=== PATIENT | male | born 1950 | race Caucasian/White ===

== ENCOUNTER 2020-08-12 18:13 | Inpatient (IN) | payer MEDICARE, SELFPAY ==
[2020-08-12] VITALS (20 sets, daily range): BP systolic 156–192; BP diastolic 79–94; PULSE 87–106; RESP 18–29; TEMP 36.4; O2SAT 90–95
--- NOTE | ~2020-08-12 | XR_ITS ---
EXAMINATION: XR chest 1V portable INDICATION: Hypoxia TECHNIQUE: Portable AP chest at 0 to 16 hours COMPARISON: None available FINDINGS: A mild diffuse interstitial pattern is present. There is no pleural effusion or pneumothora x. The cardiomediastinal silhouette is normal. There is mild osteoarthritis of the shoulders. IMPRESSION: 1. Mild diffuse interstitial pattern which could reflect pulmonary edema. Reviewed, dictated and finalized at location A.
--- NOTE | ~2020-08-12 | XR_ITS ---
XR chest 1V portable 08/14/2020 08:38 Indication: Hypoxia. CHF. Procedure: AP portable chest Comparison: 08/13/2020 Findings: Heart size within normal limits. Mild diffuse bilateral interstitial infiltrates. No signif icant effusion or pneumothorax. No acute osseous abnormality. Impression: 1: Mild diffuse bilateral interstitial infiltrates which may represent interstitial edema or atypical pneumonia. Reviewed, dictated and finalized at location B. Impression: 1: Mild diffuse bilateral interstitial infiltrates which may represent intersti tial edema or atypical pneumonia.
--- NOTE | ~2020-08-12 | XR_ITS ---
EXAMINATION: XR abdomen/kub 1V INDICATION: Left ureteral stone TECHNIQUE: Supine views of the abdomen were obtained on 2 radiographs. COMPARISON: CT from yesterday FINDINGS: A left internal ureteral stent has been placed in expected position. Many of the previously described left proximal ureteral stones appear to have been displaced in a retrograde manner into th e left renal pelvis. There is a questionable stone adjacent to the distal aspect of the internal uret eral stent near the ureterovesicular junction. In addition, there are several left kidney stones arnaldo uring up to 2 cm. Small right-sided stone seen on the comparison CT are not definitely identified. Th e bowel gas pattern is normal. IMPRESSION: 1. Left internal ureteral stent placed in expected position with multiple stones in the left renal pe lvis and left kidney. Possible stone adjacent to the distal aspect of the stent near the ureterovesic ular junction. Reviewed, dictated and finalized at location A. IMPRESSION: 1. Left internal ureteral stent placed in expected position with multiple stone s in the left renal pelvis and left kidney. Possible stone adjacent to the dist al aspect of the stent near the ureterovesicular junction.
--- NOTE | ~2020-08-12 | XR_ITS ---
EXAMINATION: XR retrograde pyelo w/stent LT INDICATION: Left ureteral stone TECHNIQUE: 80 intraoperative fluoroscopic images are submitted for review. Total fluoroscopic time is 27.4 seconds. COMPARISON: CT from yesterday FINDINGS: Retrograde pyelogram demonstrates multiple stones in the proximal left ureter. Final images demonstrate a left internal ureteral stent in expected position. The bowel gas pattern is normal. Pl ease refer to procedure note for full details. IMPRESSION: 1. Left ureteral stones with left internal ureteral stent placed in expected position. Please refer t o procedure note for full details. Reviewed, dictated and finalized at location A. IMPRESSION: 1. Left ureteral stones with left internal ureteral stent placed in expected po sition. Please refer to procedure note for full details.
--- NOTE | ~2020-08-12 | CT_ITS ---
EXAMINATION: CT abdomen pelvis wo con EXAM DATE: 08/12/2020 19:48 INDICATION: Left flank pain. TECHNIQUE: Spiral CT of the abdomen and pelvis was performed without contrast. Axial, coronal and sag ittal images were reviewed. The dose-length product (DLP) for this examination was 202.67 mGy-cm. T he exposure was tailored according to patient size (auto mA exposure control), and iterative reconstr uction (ASIR) was used as additional dose reduction technique. Correlation is made to kidney ultrasou nd 06/14/2019. FINDINGS: There appeared to be 3 contiguous left proximal ureteral stones measuring up to about 8 mm in size. There is mild left-sided hydronephrosis and moderate perinephric fat stranding. Additionally , there is stone in the distal aspect of the left ureter measuring 7 mm,, and one in the mid ureter m easuring 5 mm. Additional nonobstructing left renal pelvic stones and bilateral calyceal stones. Ther e is a soft tissue density lesion at the superior pole of the right kidney measuring 4.3 cm, matches size of a cyst on ultrasound last year, probably a hemorrhagic cyst. Moderate prostatomegaly, prostate measuring 5.6 cm. Small left inguinal fat-containing hernia. The b ladder is unremarkable. The liver, spleen, adrenal glands and pancreas are unremarkable. Gallbladde r is unremarkable. No biliary obstruction. There is no retroperitoneal or pelvic lymphadenopathy. There is moderate scattered arteriosclerotic disease. The appendix is not positively visualized. There is no pericecal inflammatory change to suggest appe ndicitis. The stomach and small bowel are unremarkable. There is expected amount of colonic stool. No free intraperitoneal gas. The heart is normal in size. There are no pericardial or pleural e ffusions. Some dependent groundglass opacity and interlobular septal thickening, could be atelectasi s or mild pulmonary edema. There are no osteoblastic or osteolytic lesions identified. IMPRESSION: 1. Total of 5 left ureteral stones identified, proximal 3 obstructing, mid and distal ureteral stone s also identified. 2. Bilateral nephrolithiasis. 3. Moderate prostatomegaly. 4. Dependent groundglass opacity, interlobular septal thickening. Atelectasis or mild pulmonary derick a. Reviewed, dictated and finalized at location A. IMPRESSION: 1. Total of 5 left ureteral stones identified, proximal 3 obstructing, mid and distal ureteral stones also identified. 2. Bilateral nephrolithiasis. 3. Moderate prostatomegaly. 4. Dependent groundglass opacity, interlobular septal thickening. Atelectasis or mild pulmonary edema.
[2020-08-12 18:37] LABS: Basophils Percent Auto 0.3 % (0.2-1.2); Eosinophils Percent Auto 0.1 % (0-4.4); Hematocrit 55.4 % (42.0-52.0); Hemoglobin 17.7 g/dL (14.0-18.0); Immature Granulocyte Absolute 0.07 K/mm3 (0.00-0.031); Immature Granulocyte Percent A 0.5 % (0-0.5); Lymphocytes Absolute Auto 0.78 K/mm3 (0.9-3.2); Lymphocytes Percent Auto 5.6 % (18.3-44.2); Mean Corpuscular HGB Conc 31.9 g/dl (32-36); Mean Corpuscular Hemoglobin 31.2 pg (26-34); Mean Corpuscular Volume 97.7 fl (80-100); Monocytes Absolute Auto 0.6 K/mm3 (0.1-0.6); Monocytes Percent Auto 4.1 % (2.6-8.5); Neutrophils Absolute Auto 12.5 K/mm3 (1.3-6.7); Neutrophils Percent Auto 89.4 % (45.5-73.1); Platelet Count Result 230 k/mm3 (150-375); Red Blood Count 5.67 M/mm3 (4.6-6.20); Red Cell Distribution Width 13.8 % (11.5-14.5)
[2020-08-12 18:46] LABS: Add Urine Microscopic? YES; Appearance Urine Clear (Clear); Bilirubin Urine Negative (Negative); Blood Urine 2+ (Negative); Color Urine Yellow (Yellow); Glucose Urine UA 2+ mg/dL (Negative); Ketones Urine Trace mg/dL (Negative); Leukocyte Esterase Ur Negative LEU/UL (Negative); Nitrate Urine Negative (Negative); Protein Urine 2+ mg/dL (Negative); RBC Urine 21-50 /hpf (0-2); Specific Grav Ur 1.017 (1.001-1.035); Urobilinogen Urine Negative mg/dL (<2.0); WBC Urine 0-3 /hpf
[2020-08-12 18:49] LABS: Alanine Aminotransferase 10 U/L (4-50); Albumin Level 4.2 g/dL (3.5-5.1); Alkaline Phosphatase 137 U/L (38-126); Anion Gap 11 mmol/L (8-16); Aspartate Amino Transferase 22 U/L (17-59); Bilirubin,Total 1.1 mg/dL (0.2-1.3); Blood Urea Nitrogen 18 mg/dL (9-20); Calcium 8.8 mg/dL (8.4-10.2); Carbon Dioxide 28 mmol/L (22-30); Chloride 100 mmol/L (98-107); Estimated CRCL calculation 25 ml/min; Estimated Glomerular Filt Rate 23; Glucose 168 mg/dL (75-110); Lipase 61 U/L (23-300); Potassium 4.7 mmol/L (3.4-5.0); Sodium 139 mmol/L (137-145)
[2020-08-12] MEDS: ONDANSETRON INJ 4 MG/2 ML VIAL IV PUSH (20:10)
[2020-08-12] MEDS: SODIUM CHLORIDE 0.9% IV 1,000 ML 999 ML IV CONT (20:10)
--- NOTE | 2020-08-12 20:38 | ED.GENADULT ---
HPI - General Adult General Chief complaint: Nausea/Vomiting/Diarrhea Stated complaint: n/v Time Seen by Provider: 08/12/20 19:17 History of Present Illness HPI narrative: Patient is a 70-year-old gentleman who presents to emergency department with chief complaint of nausea and vomiting generalized weakness and flank pain. The patient reports he has prior history of kidney stones has had an uncomfortable feeling throughout his abdomen patient reports he had multiple bouts of nausea and vomiting at home and has been able to keep fluids down. Patient states he feels as though he is dehydrated the patient reports in the past he had to have stents but does not currently have a urologist that he is seeing. Patient reports he has been specifically noncompliant with his medications particularly for diabetes and hypertension Related Data Home Medications Medication Instructions Recorded Confirmed No Home Medications 08/12/20 08/12/20 Allergies Allergy/AdvReac Type Severity Reaction Status Date / Time Penicillins Allergy Rash Verified 08/12/20 18:20 Review of Systems Review of Systems: Narrative: A 10 system review of systems was completed on the patient and is negative except for what is stated in the HPI. Nursing and ancillary documentation was reviewed. [facility] Social History Social History Gender identity (if verbalized by the patient): Male Sexual Orientation (if Verbalized by the Patient): Straight or Heterosexual Comments Past medical history significant for diabetes hypertension and kidney stones Social history the patient smokes cigarettes Exam Narrative: Exam Narrative: GENERAL: Well-appearing, well-nourished, and in no acute distress. HEAD: Normocephalic, atraumatic. EYES: PERRLA and EOMI. ENT: Nares clear, no rhinorrhea or epistaxis. Mucous membranes moist. NECK: Supple. CHEST: Clear to auscultation. No respiratory distress. HEART: Regular rate and rhythm. No murmur heard. Normal peripheral pulses. ABDOMEN: Soft, nontender, nondistended, normal active bowel sounds. EXTREMITIES: Normal range of motion. No edema. SKIN: Warm, dry, no rash. NEURO: No focal deficits. Alert and oriented x3. PSYCH: Normal mood and affect. Course Vital Signs Vital signs: Vital Signs Temperature 36.4 C L 08/12/20 18:15 Pulse Rate 89 08/12/20 18:15 Respiratory Rate 18 08/12/20 18:15 Blood Pressure 180/80 H 08/12/20 18:15 Pulse Oximetry 95 08/12/20 18:15 Temperature 36.4 C L 08/12/20 18:15 Pulse Rate 103 H 08/12/20 21:15 Respiratory Rate 24 H 08/12/20 21:15 Blood Pressure 156/83 H 08/12/20 21:01 Pulse Oximetry 93 08/12/20 21:02 Medical Decision Making Vital Signs Vital Signs: Vital Signs Temperature 36.4 C L 08/12/20 18:15 Pulse Rate 89 08/12/20 18:15 Respiratory Rate 18 08/12/20 18:15 Blood Pressure 180/80 H 08/12/20 18:15 Pulse Oximetry 95 08/12/20 18:15 Temperature 36.4 C L 08/12/20 18:15 Pulse Rate 103 H 08/12/20 21:15 Respiratory Rate 24 H 08/12/20 21:15 Blood Pressure 156/83 H 08/12/20 21:01 Pulse Oximetry 93 08/12/20 21:02 Lab Data Result diagrams: 08/12/20 18:30 08/12/20 18:30 Labs: Lab Results 08/12/20 08/12/20 08/12/20 Range/Units 18:30 18:30 18:37 WBC 14.0 H (4.5-10.0) K/mm3 RBC 5.67 (4.6-6.20) M/mm3 Hgb 17.7 (14.0-18.0) g/dL Hct 55.4 H (42.0-52.0) % MCV 97.7 (80-100) fl MCH 31.2 (26-34) pg MCHC 31.9 L (32-36) g/dl RDW 13.8 (11.5-14.5) % Plt Count 230 (150-375) k/mm3 MPV 10.0 (7.4-10.4) fl Immature Gran % (Auto) 0.5 (0-0.5) % Neut % (Auto) 89.4 H (45.5-73.1) % Lymph % (Auto) 5.6 L (18.3-44.2) % [place] % (Auto) 4.1 (2.6-8.5) % Eos % (Auto) 0.1 (0-4.4) % Baso % (Auto) 0.3 (0.2-1.2) % Lymph # (Auto) 0.78 L (0.9-3.2) K/mm3 [place] # (Auto) 0.6 (0.1-0.6) K/mm3 Eos # (Auto) 0.0 (0-0.3) K/mm3 Baso # (Auto
--- NOTE | 2020-08-12 22:56 | PM.IMHP ---
H&P: HPI History of Present Illness Date/Time: 08/12/20 22:56 this is a 70-year-old male patient who has had a past medical history of having kidney stones. The patient has also had a history of atrial fibrillation but no longer takes his rate controlling medications or anticoagulation. According to the the patient does not take any of his medications that he is supposed to. He is also diabetic and does not take any his medications. Complaints of nausea vomiting with some generalized weakness. He complained of flank pain as well. The patient was not able to keep any fluids down. He is not currently seeing a urologist. The patient felt like he was dehydrated wanted something to drink. I gave him ice chips in the emergency room however that made him nauseated. The patient was given Zofran and IV fluids. He is also started on ceftriaxone. His white count is 14.0. Neutrophil percentage 89.4. Patient's creatinine is 2.7. Glucose is 168. Patient has 2+ glucose, protein, and blood in his urine. CT of the abdomen was read by radiology 1. Total of 5 left ureteral stones identified, proximal 3 obstructing, mid and distal ureteral stones also identified. 2. Bilateral nephrolithiasis. 3. Moderate prostatomegaly. 4. Dependent groundglass opacity, interlobular septal thickening. Atelectasis or mild pulmonary edema. The patient is being admitted to observation on the date of service of 08/12/2020. Chief Complaint: Nausea vomiting Review of Systems Review of Systems: Narrative: see hpi.... All systems reviewed & are unremarkable except as noted in HPI and below Constitutional: Constitutional: Reports as per HPI and Reports no additional constitutional complaints Eyes: Eyes: Reports as per HPI and Reports no additional eye complaints ENT: Reports system reviewed and no additional complaints, except as documented and Reports Normal hearing present Cardiovascular: Cardiovascular: Reports no additional cardiovascular complaints Respiratory: Respiratory: Reports no additional respiratory complaints and Reports no additional respiratory complaints Gastrointestinal: Gastrointestinal: Reports as per HPI and Reports no additional gastrointestinal complaints Musculoskeletal: Musculoskeletal: Reports no additional musculoskeletal complaints Integumentary/Breasts: Skin/Breast: Reports system reviewed and no additional complaints, except as docu and Reports as per HPI Neurologic: Reports system reviewed and no additional complaints, except as documented, Reports as per HPI and Reports Normal hearing present Psychiatric: Psychiatric: Reports no additional psychiatric complaints and Reports as per HPI Endocrine: Endocrine: Reports no additional endocrine complaints Hematologic/Lymphatic: Hematologic/Lymphatic: Reports no additional hematologic/lymphatic complaints Allergic/Immunologic: Allergic/Immunologic: Reports no additional allergic/immunologic complaints [facility] Past Medical History Medical History (Updated 08/12/20 @ 23:10 by Carie Galvez NP) Chronic renal failure, stage 3 (moderate) DM2 (diabetes mellitus, type 2) DVT (deep venous thrombosis) Paroxysmal A-fib Psoriasis Tobacco abuse Surgical History Surgical History (Updated 08/12/20 @ 23:10 by Carie Galvez NP) H/O craniotomy Subdural hematoma S/P arthroscopic surgery of right knee Family History Family History (Updated 08/12/20 @ 23:11 by Carie Galvez NP) Mother Cerebrovascular accident Diabetes mellitus Father Natural with proved cause Social History Social History (Updated 08/12/20 @ 23:13 by Carie Galvez NP) Social History: The patient is and has 4 biological children. The patient is a full code. His is the durable power commercial real estate attorney for healthcare. 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 Patient smokes 1 and half packs of cigarettes a day. He denies any alcohol or illicit drugs. Gender identity (if verbalize
[2020-08-13] VITALS (24 sets, daily range): BP systolic 120–165; BP diastolic 66–94; PULSE 75–122; RESP 16–22; TEMP 36.4–37.3; O2SAT 90–100; BMI 23.7
--- NOTE | 2020-08-13 00:01 | ADMGEN ---
This patient, Giovanni Drew, was admitted to 2 Medical Room 248-. Patient/family oriented to hospital policies and general routines including ID bracelet, bed and alarms, visiting hours, pain management, procedures, bathroom and other care routines, personal items, smoking policy, room service/diet, and visiting hours. Information on how to activate the Rapid Response Team has been discussed. Patient/Family are encouraged to report perceived risks to care and to ask questions if they do not understand what they are told or what they should do.
[2020-08-13] MEDS: SODIUM CHLORIDE 0.9% IV 1,000 ML 125 ML IV CONT (00:28)
[2020-08-13] MEDS: NICOTINE (*PBKC) 21 MG PATCH 1 PATCH TRANSDERM ×2 (00:28→08:36)
[2020-08-13 00:39] LABS: Glucose Point of Care 161 (65-105)
--- NOTE | 2020-08-13 01:23 | PC.NURSE ---
pt complaining he is short of breath and hard to breath. O2 stat was obtained and he is at 90% on room air. Respiratory was notified and called to the floor. Pt has PRN inhaler available.
[2020-08-13 01:31] LABS: Hemoglobin A1C 7.6 % (<5.7)
--- NOTE | 2020-08-13 02:16 | PC.NURSE ---
pt stated he has had 1 dose of the covid vaccine
[2020-08-13] MEDS: IPRATROPIUM BR 0.02% INH SOLN 0.5 MG/2.5 ML VIAL INHALATION (02:17)
[2020-08-13] MEDS: ALBUTEROL SULFATE NEB 2.5 MG/0.5 ML INH 5 MG INHALATION (02:17)
--- NOTE | 2020-08-13 03:59 | ECG_ITS ---
Measurements Intervals [place] Rate: 109 P: 46 [place]: 128 QRS: 118 QRSD: 158 T: -58 QT: 368 QTc: 496 Interpretive Statements SINUS TACHYCARDIA POSSIBLE LEFT ATRIAL ENLARGEMENT RSR' IN V1 OR V2, CONSIDER RIGHT VENTRICULAR HYPERTROPHY OR RIGHT VCD CONSIDER ANTEROLATERAL INFARCT, AGE INDETERMINATE HIGH LATERAL INFARCT, AGE INDETERMINATE ST-T WAVE ABNORMALITY IN INFERIOR LEADS- CONSIDER ISCHEMIA PEAKED T WAVES- CONSIDER HYPERKALEMIA OR ISCHEMIA ABNORMAL ECG Electronically Signed On 08-13-2020 7:35:02 CDT by Calixto Santa D.O.
[2020-08-13] MEDS: FUROSEMIDE INJ 40 MG/4 ML VIAL IV PUSH ×2 (04:24→14:10)
[2020-08-13 05:38] LABS: Basophils Percent Auto 0.2 % (0.2-1.2); Hematocrit 52.1 % (42.0-52.0); Hemoglobin 16.3 g/dL (14.0-18.0); Immature Granulocyte Absolute 0.09 K/mm3 (0.00-0.031); Immature Granulocyte Percent A 0.6 % (0-0.5); Lymphocytes Absolute Auto 0.89 K/mm3 (0.9-3.2); Lymphocytes Percent Auto 6.1 % (18.3-44.2); Mean Corpuscular HGB Conc 31.3 g/dl (32-36); Mean Corpuscular Hemoglobin 30.2 pg (26-34); Mean Corpuscular Volume 96.5 fl (80-100); Mean Platelet Volume 10.2 fl (7.4-10.4); Monocytes Percent Auto 6.9 % (2.6-8.5); Neutrophils Absolute Auto 12.6 K/mm3 (1.3-6.7); Neutrophils Percent Auto 86.2 % (45.5-73.1); Platelet Count Result 229 k/mm3 (150-375); Red Cell Distribution Width 13.8 % (11.5-14.5); White Blood Count 14.6 K/mm3 (4.5-10.0)
[2020-08-13 05:49] LABS: Anion Gap 10 mmol/L (8-16); Blood Urea Nitrogen 22 mg/dL (9-20); Calcium 7.9 mg/dL (8.4-10.2); Carbon Dioxide 26 mmol/L (22-30); Chloride 101 mmol/L (98-107); Estimated CRCL calculation 19 ml/min; Estimated Glomerular Filt Rate 16; Glucose 190 mg/dL (75-110); Magnesium 1.8 mg/dL (1.6-2.3); Potassium 5.1 mmol/L (3.4-5.0); Sodium 137 mmol/L (137-145)
[2020-08-13] MEDS: INSULIN ASPART (*BKC) 100 UNITS/ML SUB-Q ×2 (06:26→17:42)
[2020-08-13 06:27] LABS: Glucose Point of Care 215 (65-105)
--- NOTE | 2020-08-13 08:47 | P.PNIM_ITS ---
Progress Note: A&P Assessment and Plan (1) Acute respiratory failure with hypoxia: Code(s): J96.01 - Acute respiratory failure with hypoxia Status: Acute Assessment and Plan: * Although chest x-ray has the appearance of pulmonary edema, this pattern was present on admission prior to the administration of IV fluids. Patient was not short of breath prior to admission. Hypoxia and shortness of breath began during a vomiting and choking episode. Patient had been vomiting for 4 days prior to admission. * He may have underlying congestive heart failure, have a ever his acute episode 08/13 seems to be due to aspiration of vomitus. * 08/13 early a.m. received 1 dose of furosemide 40 mg IV push * Will hold IV fluids at present * Given combination of GI and respiratory symptoms with abnormal chest x-ray on presentation, will obtain COVID-19 swab * Echocardiogram * TSH * CRP, Procalcitonin * TnI trend (will likely be elevated due to renal failure), but does have ABNL EKG and is at risk for atypical cardiac presentation due to his diabetes * F/u CXR (note that x-ray from 08/13 has no effusions, increased interstitial markings, some cephalization) * Continue ceftriaxone * Titrate oxygen to maintain sats mid-90s * Monitor blood pressure, heart rate, intake and output (2) Left ureteral calculus: Code(s): N20.1 - Calculus of ureter Status: Acute Assessment and Plan: * Scheduled for stent placement and stone extraction today * May require lithotripsy later * Continue ceftriaxone (3) BETH (acute kidney injury): Code(s): N17.9 - Acute kidney failure, unspecified Status: Acute Assessment and Plan: * Baseline creatinine level unknown * Request records from [facility] where he was last treated for kidney stones (4) Chronic renal failure, stage 3 (moderate): Qualifiers: Chronic kidney disease stage 3 subtype: unspecified whether 3a or 3b Qualified Code(s): N18.30 - Chronic kidney disease, stage 3 unspecified Code(s): N18.30 - Chronic kidney disease, stage 3 unspecified Status: Chronic Assessment and Plan: * Baseline creatinine level unknown (5) Paroxysmal A-fib: Code(s): I48.0 - Paroxysmal atrial fibrillation Status: Chronic Assessment and Plan: * Currently sinus tachycardia * Add low-dose beta-faviola when able to resume p.o. intake (6) DM2 (diabetes mellitus, type 2): Qualifiers: Diabetes mellitus skilled nursing insulin use: without skilled nursing use Diabetes mellitus complication status: with hyperglycemia Qualified Code(s): E11.65 - Type 2 diabetes mellitus with hyperglycemia Code(s): E11.9 - Type 2 diabetes mellitus without complications Status: Chronic Assessment and Plan: * Basal Lantus 12 units and sliding scale while NPO (7) BPH loc w urin obs/LUTS: Code(s): N40.1 - Benign prostatic hyperplasia with lower urinary tract symptoms Status: Acute Assessment and Plan: * Obstructive uropathy seems to be due to stones and not to prostate at this point (8) Tobacco abuse: Code(s): Z72.0 - Tobacco use Status: Chronic Assessment and Plan: * 08/12 3 minutes spent counseling patient on need for smoking cessation Subjective Date/time seen: 08/13/20 08:47 Interval history: 70-year-old cigarette smoker with history of type 2 diabetes and atrial fibrillation and kidney stones was admitted during the evening of 08/12 with left flank pain and found to have obstructed left ureter and multiple kidney s
--- NOTE | 2020-08-13 08:47 | PM.IMPN ---
Progress Note: A&P Assessment and Plan (1) Acute respiratory failure with hypoxia: Code(s): J96.01 - Acute respiratory failure with hypoxia Status: Acute Assessment and Plan: Although chest x-ray has the appearance of pulmonary edema, this pattern was present on admission prior to the administration of IV fluids. Patient was not short of breath prior to admission. Hypoxia and shortness of breath began during a vomiting and choking episode. Patient had been vomiting for 4 days prior to admission. He may have underlying congestive heart failure, have a ever his acute episode 08/13 seems to be due to aspiration of vomitus. 08/13 early a.m. received 1 dose of furosemide 40 mg IV push Will hold IV fluids at present Given combination of GI and respiratory symptoms with abnormal chest x-ray on presentation, will obtain COVID-19 swab Echocardiogram TSH CRP, Procalcitonin TnI trend (will likely be elevated due to renal failure), but does have ABNL EKG and is at risk for atypical cardiac presentation due to his diabetes F/u CXR (note that x-ray from 08/13 has no effusions, increased interstitial markings, some cephalization) Continue ceftriaxone Titrate oxygen to maintain sats mid-90s Monitor blood pressure, heart rate, intake and output (2) Left ureteral calculus: Code(s): N20.1 - Calculus of ureter Status: Acute Assessment and Plan: Scheduled for stent placement and stone extraction today May require lithotripsy later Continue ceftriaxone (3) BETH (acute kidney injury): Code(s): N17.9 - Acute kidney failure, unspecified Status: Acute Assessment and Plan: Baseline creatinine level unknown Request records from [facility] where he was last treated for kidney stones (4) Chronic renal failure, stage 3 (moderate): Qualifiers: Chronic kidney disease stage 3 subtype: unspecified whether 3a or 3b Qualified Code(s): N18.30 - Chronic kidney disease, stage 3 unspecified Code(s): N18.30 - Chronic kidney disease, stage 3 unspecified Status: Chronic Assessment and Plan: Baseline creatinine level unknown (5) Paroxysmal A-fib: Code(s): I48.0 - Paroxysmal atrial fibrillation Status: Chronic Assessment and Plan: Currently sinus tachycardia Add low-dose beta-faviola when able to resume p.o. intake (6) DM2 (diabetes mellitus, type 2): Qualifiers: Diabetes mellitus custodial insulin use: without long term care social worker use Diabetes mellitus complication status: with hyperglycemia Qualified Code(s): E11.65 - Type 2 diabetes mellitus with hyperglycemia Code(s): E11.9 - Type 2 diabetes mellitus without complications Status: Chronic Assessment and Plan: Basal Lantus 12 units and sliding scale while NPO (7) BPH loc w urin obs/LUTS: Code(s): N40.1 - Benign prostatic hyperplasia with lower urinary tract symptoms Status: Acute Assessment and Plan: Obstructive uropathy seems to be due to stones and not to prostate at this point (8) Tobacco abuse: Code(s): Z72.0 - Tobacco use Status: Chronic Assessment and Plan: 08/12 3 minutes spent counseling patient on need for smoking cessation Subjective Date/time seen: 08/13/20 08:47 Interval history: 70-year-old cigarette smoker with history of type 2 diabetes and atrial fibrillation and kidney stones was admitted during the evening of 08/12 with left flank pain and found to have obstructed left ureter and multiple kidney stones. He admits to not taking his prescribed medications for about 1 year. He checks his blood sugars infrequently and when he does they are in the 300s. 08/13. manager office services hours episodes of nausea vomiting followed by shortness of breath and hypoxia. Patient stated he had episodes of choking after the vomiting. Vomiting began about 4 days prior to admission. Denied chest pain palpitations or edema.
--- NOTE | 2020-08-13 09:00 | WPDURCON ---
Assessment and Plan Assessment and plan (1) BPH loc w urin obs/LUTS: Code(s): N40.1 - Benign prostatic hyperplasia with lower urinary tract symptoms Status: Acute (2) Bladder stones: Code(s): N21.0 - Calculus in bladder Status: Acute (3) Left renal stone: Code(s): N20.0 - Calculus of kidney Status: Acute (4) Left ureteral calculus: Code(s): N20.1 - Calculus of ureter Status: Acute Assessment and Plan: Cystoscopy with left stent placement today. Left ESWL after tretment of UTI and medical stabilization. Finasteride for BPH. Urology Consult Note HPI Date Seen: 08/13/20 Requesting Physician: Sandy Mckeon DO Primary Care Provider: INSEAM LEVELER PHYSICIAN Consult Narrative Narrative: Giovanni Drew is a 70 year old male reports a long history of urolithiasis that of being cared for [facility]. He has never been seen in our practice. He has a history of diabetes and atrial fibrillation but is not compliant with medications. Additionally, he has been noncompliant with urological follow-up with his prior urologist. Presents to the ER at [facility] with a several day history of left flank pain, nausea and generalized weakness. He denies fevers chills or gross hematuria. CT scan of the abdomen pelvis with without contrast shows large stones in his left renal pelvis with some smaller ones in his left ureter. Additionally, CT scan shows moderate prostate enlargement and possible bladder calculi. Review of Systems Cardiovascular: Cardiovascular: Denies chest pain, Denies lightheadedness, Denies palpitations and Denies dyspnea Respiratory: Respiratory: Denies dyspnea Gastrointestinal: Gastrointestinal: Reports abdominal pain, Denies diarrhea, Denies nausea and Denies vomiting Genitourinary: Genitourinary: Denies hematuria and Denies dysuria Endocrine: Endocrine: Denies palpitations [facility] Past Medical History Medical History (Updated 08/13/20 @ 09:04 by Taye Brannon MD) Chronic renal failure, stage 3 (moderate) DM2 (diabetes mellitus, type 2) DVT (deep venous thrombosis) Paroxysmal A-fib Psoriasis Tobacco abuse Surgical History Surgical History (Updated 08/12/20 @ 23:10 by Carie Galvez NP) H/O craniotomy Subdural hematoma S/P arthroscopic surgery of right knee Family History Family History Mother Cerebrovascular accident Diabetes mellitus Father Natural with proved cause Social History Social History (Updated 08/12/20 @ 23:13 by Carie Galvez NP) Social History: The patient is and has 4 biological children. The patient is a full code. His is the durable power staff attorney for healthcare. 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 Patient smokes 1 and half packs of cigarettes a day. He denies any alcohol or illicit drugs. Smoking packs per day: 1.5 Smoking cigarettes per day: 30.0 Smoking status: Current every day smoker Tobacco type: cigarettes Second hand tobacco smoke exposure: Yes Alcohol intake: current Drinks per week: 0 Substance use: never Gender identity (if verbalized by the patient): Male Sexual Orientation (if Verbalized by the Patient): Straight or Heterosexual Spiritual care concerns: No Meds Home Medications and Allergies Home Medications Medication Instructions Recorded Confirmed Type No Home Medications 08/12/20 08/12/20 History Allergies Allergy/AdvReac Type Severity Reaction Status Date / Time Penicillins Allergy Rash Verified 08/13/20 00:02 Vital Signs Vital Signs - 24 hr 08/12/20 18:15 08/12/20 18:28 08/12/20 19:13 Temperature 97.5 F L Pulse Rate 89 97 Respiratory Rate 18 19 Blood Pressure 180/80 H 174/79 H Pulse Oximetry 95 08/12/20 19:15 08/12/20 19:30 08/12/20 19:51 Temperature Pulse Rate 87 90 Respiratory Rate 27 H 24 H 20 B
--- NOTE | 2020-08-13 09:07 | WPDHPUPDATE1 ---
History and Physical Update Update Date/Time: 08/13/20 09:07 History and Physical has been reviewed, including an updated exam of the patient. There are NO changes in the patient's condition. Risks, benefits, and alternatives have been discussed and questions answered. Patient agrees to proceed with procedure.
--- NOTE | 2020-08-13 09:30 | PC.NURSE ---
Patient to OR per bed.
--- NOTE | 2020-08-13 09:55 | PC.NURSE ---
Patient taken to OR per bed. After returning back to floor, Dr. Pisano had placed orders to swab patient for COVID. Notified charge hand, powerhouse laborer, OR staff (Radha RN and anesthesia), and Dr. Brannon of patient PUI.
--- NOTE | 2020-08-13 10:03 | WPDANESEPPF ---
Anes - Initial Pre Proc Eval Procedure: Operation Date: 08/13/20 09:00 Proposed Procedures p Cysto, RPG, Stone Ext, Stent Placement(Left) - Taye Brannon MD Date/Time: 08/13/20 10:03 Surgeon: Sandy Mckeon DO Pre Op Diagnosis: BETH, Ureterolethiasis Patient Data Age: 70 Gender: M Height: 1.83 m Weight: 79.4 kg Last Vital Signs Temp 36.8 C 08/13/20 05:03 Pulse 108 H 08/13/20 08:27 Resp 20 08/13/20 08:27 BP 151/77 H 08/13/20 05:03 Pulse Ox 91 08/13/20 08:27 Allergies Allergy/AdvReac Type Severity Reaction Status Date / Time Penicillins Allergy Rash Verified 08/13/20 00:02 Home Medications Medication Instructions Recorded Confirmed Type No Home Medications 08/12/20 08/12/20 History Laboratory Tests 08/12/20 08/12/20 08/12/20 18:29 18:30 18:30 WBC 14.0 K/mm3 H K/mm3 (4.5-10.0) RBC 5.67 M/mm3 M/mm3 (4.6-6.20) Hgb 17.7 g/dL g/dL (14.0-18.0) Hct 55.4 % H % (42.0-52.0) MCV 97.7 fl fl (80-100) MCH 31.2 pg pg (26-34) MCHC 31.9 g/dl L g/dl (32-36) RDW 13.8 % % (11.5-14.5) Plt Count 230 k/mm3 k/mm3 (150-375) MPV 10.0 fl fl (7.4-10.4) Immature Gran % (Auto) 0.5 % % (0-0.5) Neut % (Auto) 89.4 % H % (45.5-73.1) Lymph % (Auto) 5.6 % L % (18.3-44.2) [place] % (Auto) 4.1 % % (2.6-8.5) Eos % (Auto) 0.1 % % (0-4.4) Baso % (Auto) 0.3 % % (0.2-1.2) Lymph # (Auto) 0.78 K/mm3 L K/mm3 (0.9-3.2) [place] # (Auto) 0.6 K/mm3 K/mm3 (0.1-0.6) Eos # (Auto) 0.0 K/mm3 K/mm3 (0-0.3) Baso # (Auto) 0.0 K/mm3 K/mm3 (0.0-0.1) Abs Immat Gran (auto) 0.07 K/mm3 H K/mm3 (0.00-0.031) Absolute Neuts (auto) 12.5 K/mm3 H K/mm3 (1.3-6.7) Absolute Nucleated RBC 0.0 K/mm3 K/mm3 (0.0-0.012) Nucleated RBC % 0.0 % % (0.0-0.2) Sodium 139 mmol/L mmol/L (137-145) Potassium 4.7 mmol/L mmol/L (3.4-5.0) Chloride 100 mmol/L mmol/L (98-107) Carbon Dioxide 28 mmol/L mmol/L (22-30) Anion Gap 11 mmol/L mmol/L (8-16) BUN 18 mg/dL mg/dL (9-20) Creatinine 2.70 mg/dL H mg/dL (0.7-1.3) Estim Creat Clear Calc 25 ml/min ml/min Estimated GFR 23 L (59 - ) Glucose 168 mg/dL H mg/dL (75-110) POC Capillary Glucose Hemoglobin A1c 7.6 % H % (<5.7) Calcium 8.8 mg/dL mg/dL (8.4-10.2) Magnesium Total Bilirubin 1.1 mg/dL mg/dL (0.2-1.3) AST 22 U/L U/L (17-59) ALT 10 U/L U/L (4-50) Alkaline Phosphatase 137 U/L H U/L (38-126) Total Protein 8.0 g/dL g/dL (6.3-8.2) Albumin 4.2 g/dL g/dL (3.5-5.1) Lipase 61 U/L U/L (23-300) Urine Color Urine Appearance Urine pH Ur Specific [place] Urine Protein Urine Glucose (UA) Urine Ketones Ur Blood (Man) Urine Nitrate Urine Bilirubin Urine Urobilinogen Leukocyte Esterase Rfl Urine RBC Urine WBC 08/12/20 08/13/20 08/13/20 18:37 00:33 05:10 WBC 14.6 K/mm3 H K/mm3 (4.5-10.0) RBC 5.40 M/mm3 M/mm3 (4.6-6.20) Hgb 16.3 g/dL g/dL (14.0-18.0) Hct 52.1 % H % (42.0-52.0) MCV 96.5 fl fl (80-100) MCH 30.2 pg pg (26-34) MCHC 31.3 g/dl L g/dl (32-36) RDW 13.8 % % (11.5-14.5) Plt Count 229 k/mm3 k/mm3 (150-375) MPV 10.2 fl fl (7.4-10.4) Immature Gran % (Auto) 0.6 % H % (0-0.5) Neut % (Auto) 86.2 % H % (45.5-73.1) Lymph % (Auto) 6.1 % L % (18.3-44.2) [place] % (Auto) 6.9 % %
[2020-08-13] MEDS: LACTATED RINGERS 1,000 ML 30 ML IV CONT (10:23)
--- NOTE | 2020-08-13 10:29 | PC.NURSE ---
Report given to FRANK Felix-nurse to resume care after procedure.
--- NOTE | 2020-08-13 11:00 | PC.NURSE ---
Updated patients on patients condition, transfer.
[2020-08-13] MEDS: LIDOCAINE HCL 2% GEL UROJET 10 ML PKG MUCOUS MEM (11:15)
--- NOTE | 2020-08-13 11:15 | PM.PROC ---
Procedure Note - Detailed Date of procedure: 08/13/20 Pre-op diagnosis: BETH, Ureterolethiasis Post-op diagnosis: other (BETH, left ureteral, left renal and bladder stones) Procedure performed: Cystoscopy, bladder stone extraction, left retrograde pyelogram and left ureteral stent placement Description of procedure: patient brought to the operative suite where he has prepped draped in routine sterile fashion while in a dorsal lithotomy position. 2% xylocaine jelly was introduced intraurethrally. General LMA anesthetic was administered per the anesthesia department. Cystoscopy is undertaken with a 21 F rigid cystoscope. He has a 2.5 cm estimated prostatic urethral length with a high median bar. Bladder was trabeculated without mucosal hyperemia. There are several 0.5-1 cm bladder stones which were extracted with a grasping forceps. 8F bulb tip catheter was used to obtain ridge left retrograde pyelogram. identifiable filling defects in the left proximal ureter consistent with his known stones. 4.8F ureteral stent is positioned in the left ureter with proximal coil in the renal pelvis and distal coil in the bladder. Scopes and wires removed. Patient tolerated the procedure well. Anesthesia: GLMA Surgeon: Taye Brannon MD Drains: Yes Packing: No Pathology: yes Complications: No immediate complications Condition: stable Disposition: PACU
--- NOTE | 2020-08-13 11:44 | PC.NURSE ---
This patient, Giovanni Drew, was transferred to 312 on 08/13/20. Patient to be transferred to room 312 following OR procedure. Personal belongings sent with patient. Report given to FRANK Felix. Appropriate documentation sent with patient.
[2020-08-13 12:44] LABS: Glucose Point of Care 194 (65-105)
[2020-08-13 12:47] LABS: Basophils Percent Auto 0.2 % (0.2-1.2); Hematocrit 54.5 % (42.0-52.0); Hemoglobin 17.6 g/dL (14.0-18.0); Immature Granulocyte Absolute 0.07 K/mm3 (0.00-0.031); Immature Granulocyte Percent A 0.5 % (0-0.5); Mean Corpuscular HGB Conc 32.3 g/dl (32-36); Mean Corpuscular Hemoglobin 31.6 pg (26-34); Mean Corpuscular Volume 97.8 fl (80-100); Mean Platelet Volume 10.1 fl (7.4-10.4); Monocytes Absolute Auto 0.6 K/mm3 (0.1-0.6); Monocytes Percent Auto 3.9 % (2.6-8.5); Neutrophils Absolute Auto 13.5 K/mm3 (1.3-6.7); Neutrophils Percent Auto 91.4 % (45.5-73.1); Platelet Count Result 232 k/mm3 (150-375); Red Blood Count 5.57 M/mm3 (4.6-6.20); Red Cell Distribution Width 14.2 % (11.5-14.5); White Blood Count 14.8 K/mm3 (4.5-10.0)
[2020-08-13 12:56] LABS: Hemoglobin A1C 7.6 % (<5.7)
[2020-08-13 12:59] LABS: Anion Gap 9 mmol/L (8-16); Blood Urea Nitrogen 27 mg/dL (9-20); Calcium 8.3 mg/dL (8.4-10.2); Carbon Dioxide 27 mmol/L (22-30); Chloride 100 mmol/L (98-107); Estimated CRCL calculation 16 ml/min; Estimated Glomerular Filt Rate 14; Glucose 214 mg/dL (75-110); Potassium 5.8 mmol/L (3.4-5.0); Sodium 136 mmol/L (137-145)
[2020-08-13 13:02] LABS: CRP 6.9 mg/dL (<1.0)
--- NOTE | 2020-08-13 13:55 | ECG_ITS ---
Measurements Intervals [place] Rate: 95 P: 18 CT: 152 QRS: 119 QRSD: 143 T: -59 QT: 382 QTc: 481 Interpretive Statements SINUS RHYTHM POSSIBLE LEFT ATRIAL ENLARGEMENT RIGHT BUNDLE BRANCH BLOCK LEFT POSTERIOR FASCICULAR BLOCK CONSIDER ANTEROLATERAL INFARCT, AGE INDETERMINATE HIGH LATERAL INFARCT, AGE INDETERMINATE ST-T WAVE ABNORMALITY IN INFERIOR LEADS- CONSIDER ISCHEMIA BASELINE ARTIFACT- I, II, AVR, V1 ABNORMAL ECG Electronically Signed On 08-13-2020 16:31:01 CDT by Calixto Santa D.O.
[2020-08-13] MEDS: SODIUM POLYSTYRENE SULFONONATE 15 GM/60 ML BTL PO (14:10)
[2020-08-13] MEDS: SODIUM CHLORIDE 0.9% IV 250 ML 100 ML IV CONT (14:11)
[2020-08-13 15:41] LABS: Anion Gap 10 mmol/L (8-16); Blood Urea Nitrogen 29 mg/dL (9-20); Calcium 8.5 mg/dL (8.4-10.2); Carbon Dioxide 26 mmol/L (22-30); Chloride 100 mmol/L (98-107); Estimated CRCL calculation 18 ml/min; Estimated Glomerular Filt Rate 15; Glucose 255 mg/dL (75-110); Phosphorus 4.6 mg/dL (2.5-4.5); Potassium 5.8 mmol/L (3.4-5.0); Sodium 136 mmol/L (137-145)
[2020-08-13] MEDS: FINASTERIDE 5 MG TABLET PO (17:44)
[2020-08-13 17:53] LABS: Glucose Point of Care 265 (65-105)
[2020-08-13 20:24] LABS: Basophils Percent Auto 0.1 % (0.2-1.2); Hematocrit 50.1 % (42.0-52.0); Hemoglobin 16.2 g/dL (14.0-18.0); Immature Granulocyte Absolute 0.05 K/mm3 (0.00-0.031); Immature Granulocyte Percent A 0.6 % (0-0.5); Lymphocytes Absolute Auto 0.38 K/mm3 (0.9-3.2); Lymphocytes Percent Auto 4.5 % (18.3-44.2); Mean Corpuscular HGB Conc 32.3 g/dl (32-36); Mean Corpuscular Hemoglobin 31.2 pg (26-34); Mean Corpuscular Volume 96.5 fl (80-100); Mean Platelet Volume 10.2 fl (7.4-10.4); Monocytes Absolute Auto 0.2 K/mm3 (0.1-0.6); Monocytes Percent Auto 1.8 % (2.6-8.5); Neutrophils Absolute Auto 7.8 K/mm3 (1.3-6.7); Platelet Count Result 212 k/mm3 (150-375); Red Blood Count 5.19 M/mm3 (4.6-6.20); Red Cell Distribution Width 13.9 % (11.5-14.5); White Blood Count 8.4 K/mm3 (4.5-10.0)
[2020-08-13] MEDS: ATORVASTATIN 40 MG TABLET PO (20:26)
[2020-08-13] MEDS: ASPIRIN 325 MG TABLET PO (20:26)
[2020-08-13] MEDS: METOPROLOL TARTRATE 25 MG TABLET PO (20:26)
[2020-08-13] MEDS: HEPARIN SOD/D5W 100 UNITS/ML 25,000 UNITS/250 ML BAG 10 UNITS IV CONT (20:27)
[2020-08-13 20:34] LABS: INR 1.1; Prothrombin Time 14.6 Seconds (11.1-14.7)
[2020-08-13 20:35] LABS: Partial Thromboplastin Time 30.3 SECONDS (22.3-36.8)
[2020-08-13] MEDS: INSULIN GLARGINE (*BKC) 100 UNITS/ML 12 UNITS SUB-Q (20:35)
[2020-08-13 20:37] LABS: Glucose Point of Care 316 (65-105)
--- NOTE | 2020-08-13 21:21 | PC.NURSE ---
This patient, Giovanni Drew, was transferred to [ 231] on 08/13/20 at 2115. Personal belongings sent with patient. Report given to [Steff MARIE ]. Appropriate documentation sent with patient.
--- NOTE | 2020-08-13 21:44 | PC.NURSE ---
This patient, Giovanni Drew, was received from 3rd med/surg on 08/13/20 at 2115. Patient/family oriented to unit policies and routines
[2020-08-13 23:45] LABS: Glucose Point of Care 435 (65-105)
[2020-08-14] VITALS (17 sets, daily range): BP systolic 98–137; BP diastolic 41–70; PULSE 62–88; RESP 16–20; TEMP 36.3–36.7; O2SAT 94–98
--- NOTE | 2020-08-14 | ECHO_ITS ---
Patient Info Name: Giovanni Drew Age: 70 years : 1950 Gender: Male Ht: 72 in Wt: 175 lbs BSA: 2.01 m2 HR: 66 bpm BP: 98 / 41 mmHg Heart Rhythm: Sinus Rhythm Technical Quality: Good Exam Date: 08/14/2020 1:53 PM Exam Location: [facility] Patient Status: Inpatient Admit Date: 08/14/2020 Staff Ordering Physician: Joaquim Pisano MD Assembler Camper: Betzaida Deleon RDCS Attending Provider: Sandy Mckeon DO Referring Physician: Aliya MORGAN; Exam Type: CA echo doppler color flow Study Info Indications I51.9 - Heart disease, unspecified I48.1 - Persistent atrial fibrillation Complete two-dimensional, color flow and Doppler transthoracic echocardiogram is performed. Summary 1. Complete two-dimensional, color flow and Doppler transthoracic echocardiogram is performed. 2. Left ventricular enlargement with moderate systolic dysfunction estimated ejection fraction about 35%. 3. Posterior segment is frankly akinetic. 4. Anterior wall is severely hypodynamic. 5. Dilated left atrium. 6. Mild mitral regurgitation. Left Ventricle Left ventricular chamber dimension is moderately enlarged. Left ventricular systolic function is moderately reduced, estimated at 30-35%. The left ventricular diastolic function is grade I diastolic dysfunction. Right Ventricle Right ventricular chamber dimension is normal. Left Atria Left atrial chamber dimension is moderately enlarged. Right Atria Right atrial chamber dimension is normal. Aortic Valve The aortic valve is trileaflet. There is mild aortic valve sclerosis. Pulmonic Valve The pulmonic valve is not well visualized. Mitral Valve The mitral valve has normal leaflets. There is mild mitral valve regurgitation. Tricuspid Valve The tricuspid valve leaflets are normal. Pericardium/Pleural The pericardium appears normal. Aorta The aortic root size at the sinus of Valsalva is normal. Left Ventricular Outflow Tract Name Value Normal LVOT 2D LVOT Diameter 2.0 cm LVOT Doppler LVOT Peak Gradient 3 mmHg LVOT Mean Gradient 2 mmHg LVOT VTI 15 cm LVOT VTI/AV VTI Ratio 0.8 LVOT Stroke Volume 51 ml LVOT CO 3.4 l/min LVOT CI 1.7 l/min/m2 Pulmonic Valve Name Value Normal RVOT Doppler RVOT Peak Gradient 3 mmHg PV Doppler PV Peak Gradient 3 mmHg Mitral Valve Name Value Normal
[2020-08-14] MEDS: INSULIN ASPART (*BKC) 100 UNITS/ML 10 UNITS SUB-Q (01:09)
[2020-08-14 03:07] LABS: Basophils Percent Auto 0.1 % (0.2-1.2); Hematocrit 47.7 % (42.0-52.0); Hemoglobin 15.6 g/dL (14.0-18.0); Immature Granulocyte Absolute 0.04 K/mm3 (0.00-0.031); Immature Granulocyte Percent A 0.4 % (0-0.5); Lymphocytes Absolute Auto 0.75 K/mm3 (0.9-3.2); Lymphocytes Percent Auto 7.1 % (18.3-44.2); Mean Corpuscular HGB Conc 32.7 g/dl (32-36); Mean Corpuscular Hemoglobin 31.3 pg (26-34); Mean Corpuscular Volume 95.6 fl (80-100); Mean Platelet Volume 10.1 fl (7.4-10.4); Monocytes Absolute Auto 0.5 K/mm3 (0.1-0.6); Monocytes Percent Auto 5.1 % (2.6-8.5); Neutrophils Absolute Auto 9.2 K/mm3 (1.3-6.7); Neutrophils Percent Auto 87.3 % (45.5-73.1); Platelet Count Result 216 k/mm3 (150-375); Red Blood Count 4.99 M/mm3 (4.6-6.20); Red Cell Distribution Width 13.9 % (11.5-14.5); White Blood Count 10.5 K/mm3 (4.5-10.0)
[2020-08-14 03:17] LABS: Partial Thromboplastin Time 54.8 SECONDS (22.3-36.8)
[2020-08-14 03:18] LABS: Albumin Level 3.6 g/dL (3.5-5.1); Anion Gap 6 mmol/L (8-16); Blood Urea Nitrogen 38 mg/dL (9-20); Calcium 8.4 mg/dL (8.4-10.2); Carbon Dioxide 28 mmol/L (22-30); Chloride 101 mmol/L (98-107); Estimated CRCL calculation 19 ml/min; Estimated Glomerular Filt Rate 16; Glucose 168 mg/dL (75-110); Phosphorus 3.5 mg/dL (2.5-4.5); Potassium 3.9 mmol/L (3.4-5.0); Sodium 135 mmol/L (137-145)
[2020-08-14] MEDS: HEPARIN SODIUM 5,000 UNITS/ML VIAL 4000 UNITS IV PUSH ×2 (04:20→18:41)
[2020-08-14 05:44] LABS: Glucose Point of Care 86 (65-105)
[2020-08-14 06:51] LABS: Glucose Point of Care 94 (65-105)
--- NOTE | 2020-08-14 06:52 | WPDUROPN2 ---
Progress Note: A&P Assessment and Plan (1) BPH loc w urin obs/LUTS: Code(s): N40.1 - Benign prostatic hyperplasia with lower urinary tract symptoms Status: Acute (2) Bladder stones: Code(s): N21.0 - Calculus in bladder Status: Acute (3) Left renal stone: Code(s): N20.0 - Calculus of kidney Status: Acute (4) Left ureteral calculus: Code(s): N20.1 - Calculus of ureter Status: Acute Assessment and Plan: Cystoscopy with left stent placement today. Left ESWL after tretment of UTI and medical stabilization. Finasteride for BPH. 08/14/20 Tolerating stent well. Sizeable/numerous calcified left kidney/ureteral stones. Will eventually require ESWL (possibly multiple procedures). Urine culture pending. Subjective Subjective Date/Time Seen: 08/14/20 06:52 Tolerating left ureteral stent. Urine clear despite anticoagulation Review of Systems Cardiovascular: Cardiovascular: Denies chest pain, Denies lightheadedness, Denies palpitations and Denies dyspnea Respiratory: Respiratory: Denies dyspnea Gastrointestinal: Gastrointestinal: Denies diarrhea, Denies nausea and Denies vomiting Genitourinary: Genitourinary: Denies hematuria and Denies dysuria Endocrine: Endocrine: Denies palpitations Exam Const: General: no acute distress Resp: Effort & Inspection: normal respiratory effort GI: Inspection: non-distended GI Palp: No abdominal tenderness and No Guarding due to palpation present (GI) Auscultation: normal bowel sounds Objective Data Vital Signs Vital Signs: Vital Signs - 24 hr 08/13/20 08:00 08/13/20 08:27 08/13/20 11:24 Temperature 97.9 F Pulse Rate 108 H 108 H 97 Respiratory Rate 20 20 Blood Pressure 120/66 Pulse Oximetry 96 91 100 08/13/20 11:41 08/13/20 11:54 08/13/20 12:00 Temperature Pulse Rate 95 95 108 H Respiratory Rate 18 18 Blood Pressure 136/79 145/84 H Pulse Oximetry 97 95 08/13/20 12:15 08/13/20 12:30 08/13/20 13:00 Temperature 99.2 F 97.9 F 97.8 F Pulse Rate 96 95 97 Respiratory Rate 20 20 16 Blood Pressure 146/86 H 148/85 H 150/81 H Pulse Oximetry 96 95 92 08/13/20 14:00 08/13/20 14:15 08/13/20 16:00 Temperature 97.9 F 97.8 F Pulse Rate 101 H 90 Respiratory Rate 20 16 Blood Pressure 157/94 H 148/85 H Pulse Oximetry 96 94 94 08/13/20 20:00 08/13/20 20:26 08/13/20 21:15 Temperature 97.5 F L Pulse Rate 84 92 79 Respiratory Rate 18 Blood Pressure 132/79 Pulse Oximetry 95 08/13/20 22:00 08/14/20 00:00 08/14/20 02:00 Temperature 97.5 F L Pulse Rate 75 67 73 Respiratory Rate 18 Blood Pressure 118/70 Pulse Oximetry 95 08/14/20 04:00 08/14/20 05:52 Temperature 97.4 F L Pulse Rate 68 75 Respiratory Rate 16 Blood Pressure 123/67 Pulse Oximetry 94 Intake/Output Intake/Output: Intake & Output 08/11/20 08/12/20 08/13/20 08/14/20 23:59 23:59 23:59 23:59 Intake Total 1050 1848 Output Total 1450 875 Balance 1050 398 -875 Meds/Results Medications: Active Medications Generic Name Dose Route Start Last Admin Trade Name Freq PRN Reason Stop Dose Admin Albuterol 2 puff 08/12/20 23:13 Albuterol Sulfate (*Sp) Aerosol 1 Puff INHALATION Q6HRT PRN Shortness Of Breath Atorvastatin Calcium 40 mg 08/13/20 21:00 08/13/20 20:26 Atorvastatin 40 Mg Tablet PO 40 mg HS ANGELINE Administration Dextrose 12.5 gm 08/12/20 23:04 Dextrose 50% 25 Gm/50 Ml Syringe IV PUSH PRN PRN Hypoglycemia Protocol Finasteride 5 mg 08/13/20 09:15 08/13/20 17:44 Finasteride 5 Mg Tablet PO 5 mg QAM ANGELINE Administration Glucagon 1 mg 08/12/20 23:04 Glucagon For Inj 1 Mg Vial IM PRN PRN Hypoglycemia Protocol Glucose 15 gm 08/12/20 23:04 Glucose Oral Gel 15 Gm Of Glucse In 37.5 Gm Tube PO PRN PRN Hypoglycemia Protocol Heparin Sodium (Porcine) 4,000 units 08/13/20 19:36 08/14/20 04:2
--- NOTE | 2020-08-14 07:00 | ECG_ITS ---
Measurements Intervals [place] Rate: 58 P: 10 OK: 162 QRS: 120 QRSD: 141 T: -69 QT: 475 QTc: 470 Interpretive Statements SINUS BRADYCARDIA VENTRICULAR PREMATURE COMPLEX RIGHT BUNDLE BRANCH BLOCK EXTENSIVE ANTERIOR INFARCT, AGE INDETERMINATE HIGH LATERAL INFARCT, AGE INDETERMINATE ST-T WAVE ABNORMALITY IN INFERIOR LEADS- CONSIDER ISCHEMIA BASELINE ARTIFACT- I, II, AVR ABNORMAL ECG Electronically Signed On 08-14-2020 10:11:06 CDT by Calixto Santa D.O.
--- NOTE | 2020-08-14 08:20 | WPDANESPN ---
Anes - Prog Note Post-Op Date/Time: 08/14/20 08:20 Cardiovascular status: normal Respiratory status: normal Airway patency: baseline Mental status: baseline Post-Op hydration status: normal Vital Signs: Last Vital Signs Temp 36.3 C L 08/14/20 04:00 Pulse 75 08/14/20 05:52 Resp 16 08/14/20 04:00 BP 123/67 08/14/20 04:00 Pulse Ox 94 08/14/20 04:00 Pain Score (VAS): 1 I/O: Intake & Output 08/13/20 08/14/20 08/14/20 23:59 07:59 15:59 Intake Total 1570 Output Total 1350 875 Balance 220 -875 Laboratory Tests 08/14/20 02:58 08/14/20 02:58 08/13/20 08/13/20 08/13/20 09:46 12:30 12:30 WBC RBC Hgb Hct MCV MCH MCHC RDW Plt Count MPV Immature Gran % (Auto) Neut % (Auto) Lymph % (Auto) [place] % (Auto) Eos % (Auto) Baso % (Auto) Lymph # (Auto) [place] # (Auto) Eos # (Auto) Baso # (Auto) Abs Immat Gran (auto) Absolute Neuts (auto) Absolute Nucleated RBC Nucleated RBC % PT INR APTT Sodium 136 L Potassium 5.8 H Chloride 100 Carbon Dioxide 27 Anion Gap 9 BUN 27 H Creatinine 4.20 H Estim Creat Clear Calc 16 Estimated GFR 14 L Glucose 214 H POC Capillary Glucose Hemoglobin A1c Calcium 8.3 L Phosphorus Troponin I C-Reactive Protein 6.9 H Albumin TSH (Reflex) PTH Intact SARS-CoV-2 RNA (RT-PCR) Pending 08/13/20 08/13/20 08/13/20 12:30 12:31 12:31 WBC 14.8 H RBC 5.57 Hgb 17.6 Hct 54.5 H MCV 97.8 MCH 31.6 MCHC 32.3 RDW 14.2 Plt Count 232 MPV 10.1 Immature Gran % (Auto) 0.5 Neut % (Auto) 91.4 H Lymph % (Auto) 4.0 L [place] % (Auto) 3.9 Eos % (Auto) 0.0 Baso % (Auto) 0.2 Lymph # (Auto) 0.60 L [place] # (Auto) 0.6 Eos # (Auto) 0.0 Baso # (Auto) 0.0 Abs Immat Gran (auto) 0.07 H Absolute Neuts (auto) 13.5 H Absolute Nucleated RBC 0.0 Nucleated RBC % 0.0 PT INR APTT Sodium Potassium Chloride Carbon Dioxide Anion Gap BUN Creatinine Estim Creat Clear Calc Estimated GFR Glucose POC Capillary Glucose Hemoglobin A1c Calcium Phosphorus Troponin I 8.490 H* C-Reactive Protein Albumin TSH (Reflex) 1.340 PTH Intact SARS-CoV-2 RNA (RT-PCR) 08/13/20 08/13/20 08/13/20 12:31 12:36 15:14 WBC RBC Hgb Hct MCV MCH MCHC RDW Plt Count MPV Immature Gran % (Auto) Neut % (Auto) Lymph % (Auto) [place] % (Auto) Eos % (Auto) Baso % (Auto) Lymph # (Auto) [place] # (Auto) Eos # (Auto) Baso # (Auto) Abs Immat Gran (auto) Absolute Neuts (auto) Absolute Nucleated RBC Nucleated RBC % PT INR APTT Sodium 136 L Potassium 5.8 H Chloride 100 Carbon Dioxide 26 Anion Gap 10 BUN 29 H Creatinine 3.90 H Estim Creat Clear Calc 18 Estimated GFR 15 L Glucose 255 H POC Capillary Glucose 194 H Hemoglobin A1c 7.6 H Calcium 8.5 Phosphorus 4.6 H Troponin I C-Reactive Protein Albumin TSH (Reflex) PTH Intact 153.0 H SARS-CoV-2 RNA (RT-PCR) 08/13/20 08/13/20 08/13/20 15:14 17:32 18:29 WBC RBC Hgb Hct MCV MCH MCHC RDW Plt Count MPV Immature Gran % (Auto) Neut % (Auto) Lymph % (Auto) [place] % (Auto) Eos % (Auto) Baso % (Auto) Lymph # (Auto) [place] # (Auto) Eos # (Auto) Baso # (Auto) Abs Immat Gran (auto) Absolute Neuts (auto) Absolute Nucleated RBC Nucleated RBC % PT INR APTT Sodium Potassium Chloride Carbon Dioxide Anion Gap BUN Creatinine Estim Creat Clear Calc Estimated GFR Glucose POC Capillary Glucose 265 H Hemoglobin A1c Calcium Phosphorus Troponin I 10.900 H* D 17.400 H* D C-Reactive Protein Albumin
--- NOTE | 2020-08-14 09:05 | PM.CNCAR ---
Assessment and Plan Additional Plan This is a 70-year-old man with: Troponin elevations to a significant level as mentioned above following an episode of shortness of breath that occurred on Friday night. This appeared to be triggered by an episode of vomiting and aspiration of vomitus as mentioned in the hospitalist note. Despite this he was not having any chest pain of any kind. The patient's ECG does show some significant T-wave abnormalities during this event but no obvious current of injury. The likelihood that this is a type 2 infarction in this setting seems evident. He is clinically stable this morning he has significant acute renal failure which in my opinion would prevent me from recommending an angiogram at this time. We do not have any previous records to indicate where his creatinine level normally runs as he does not really seek any medical care for a number of years. Echocardiogram has been ordered by the hospitalist I will continue the aspirin and beta-faviola that has already been ordered. He does not have to be held NPO for procedures as I believe we should manage this in a conservative fashion because of his renal insufficiency. Jose A Gray MD [facility] History of Present Illness History of Present Illness Consult date/time: 08/14/20 09:05 Reason For Visit: BETH, Ureterolethiasis Narrative: This is a 70-year-old man of seeing this morning at the request of the hospitalist because of elevated troponin levels that were sampled over the course of the past weekend indicating evidence of acute myocardial injury. The patient is hospitalized in room 231 and currently has no cardiovascular complaints. He was hospitalized over the weekend with severe left flank pain and had multiple stones in the left ureter. He was seen by the hospitalist and by Urology. He was taken to the operating room yesterday and underwent ureteral stenting with favorable results and improvement in his symptomatology and he is recovering well from that procedure. According to the chart the patient had a significant incident of shortness of breath on Friday night after he vomited. The clinical impression was that he had an episode of choking on vomitus and was hypoxemic for a while. He did not have any chest pain pressure or heaviness. Troponin levels were sampled after this and have risen significantly to a high of 22. Electrocardiogram showed some obvious inferior T-wave inversions no obvious ST elevation or current of injury was sample. He reiterates again that he was not having any chest pain. The patient has a prior history of atrial fibrillation he thinks about 5 or 6 years ago has not had any evidence of that for a number of years he does not have any other cardiac problems of which he is aware. He does not take any medications at home he freely admits that he has hypertension diabetes significant vascular disease and history of atrial fibrillation and has had medications recommended for all these problems and elects not to take any medications or follow-up with any physician. [place] in the [facility] and a generally does not see her for medical care or compliant with medical recommendations. In addition to the significantly high troponin level his renal function is poor with a creatinine that was about 2.5 on admission and has risen to 3.7. After he was seen on the weekend by the hospitalist an echocardiogram was ordered that has not yet been done as of the time I am dictating this note this morning. He is comfortable without any complaints other than he is not happy about being held NPO apparently for the possibility of an angiogram. Review of Systems Constitutional: Constitutional: Reports weakness Eyes: Eyes: Reports no additional eye complaints ENT: Reports system reviewed and no additional complaints, except as documented Cardiovascular: Cardiovascular: Reports no additional cardiovascular complaints Respiratory:
[2020-08-14] MEDS: METOPROLOL TARTRATE 25 MG TABLET PO ×2 (09:57→20:37)
[2020-08-14] MEDS: FINASTERIDE 5 MG TABLET PO (09:57)
[2020-08-14 10:49] LABS: Partial Thromboplastin Time 124.9 SECONDS (22.3-36.8)
[2020-08-14] MEDS: INSULIN ASPART (*BKC) 100 UNITS/ML SUB-Q (12:39)
[2020-08-14 12:41] LABS: Glucose Point of Care 256 (65-105)
--- NOTE | 2020-08-14 15:12 | PM.IMPN ---
Progress Note: A&P Assessment and Plan (1) Acute respiratory failure with hypoxia: Code(s): J96.01 - Acute respiratory failure with hypoxia Status: Acute Assessment and Plan: Although chest x-ray has the appearance of pulmonary edema, this pattern was present on admission prior to the administration of IV fluids. Patient was not short of breath prior to admission. Hypoxia and shortness of breath began during a vomiting and choking episode. Patient had been vomiting for 4 days prior to admission. He may have underlying congestive heart failure, have a ever his acute episode 08/13 seems to be due to aspiration of vomitus. 08/13 early a.m. received 1 dose of furosemide 40 mg IV push Will hold IV fluids at present Given combination of GI and respiratory symptoms with abnormal chest x-ray on presentation, will obtain COVID-19 swab Echocardiogram TSH CRP, Procalcitonin TnI trend (will likely be elevated due to renal failure), but does have ABNL EKG and is at risk for atypical cardiac presentation due to his diabetes F/u CXR (note that x-ray from 08/13 has no effusions, increased interstitial markings, some cephalization) Continue ceftriaxone Titrate oxygen to maintain sats mid-90s Monitor blood pressure, heart rate, intake and output 08/14/20 15:12 patient is 70-year-old male presented emergency department with left flank pain he was found to have ureteral stone and was seen by urologist and was taken to the urology lab and had a cystoscopy and stents were placed to help release kidney stone the procedure went well and patient's symptom improved, and also found to significant elevated tropes 22, however patient does not have any complaint of chest pain he did complain of shortness of breath and there was a suspicion the patient may have aspirated when he was vomiting, patient is seen by robotics technologist does not suspect acute coronary syndrome his EKG does not show any acute changes recommending conservative management and monitor, currently patient is been isolated and tested for COVID-19, denies any complaint of chest pain shortness of breath palpitation fever or chills, he wants to go home, patient is clinically stable will continue to monitor and further recommendation to follow tomorrow (2) Left ureteral calculus: Code(s): N20.1 - Calculus of ureter Status: Acute Assessment and Plan: Scheduled for stent placement and stone extraction today May require lithotripsy later Continue ceftriaxone (3) BETH (acute kidney injury): Code(s): N17.9 - Acute kidney failure, unspecified Status: Acute Assessment and Plan: Baseline creatinine level unknown Request records from [facility] where he was last treated for kidney stones (4) Chronic renal failure, stage 3 (moderate): Qualifiers: Chronic kidney disease stage 3 subtype: unspecified whether 3a or 3b Qualified Code(s): N18.30 - Chronic kidney disease, stage 3 unspecified Code(s): N18.30 - Chronic kidney disease, stage 3 unspecified Status: Chronic Assessment and Plan: Baseline creatinine level unknown (5) Paroxysmal A-fib: Code(s): I48.0 - Paroxysmal atrial fibrillation Status: Chronic Assessment and Plan: Currently sinus tachycardia Add low-dose beta-faviola when able to resume p.o. 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
[2020-08-14 17:43] LABS: Glucose Point of Care 183 (65-105)
[2020-08-14] MEDS: HEPARIN SOD/D5W 100 UNITS/ML 25,000 UNITS/250 ML BAG 11 UNITS IV CONT (17:54)
[2020-08-14 18:38] LABS: Partial Thromboplastin Time 46.8 SECONDS (22.3-36.8)
[2020-08-14 20:12] LABS: SARS-CoV-2 RNA PCR Negative
[2020-08-14 20:18] LABS: Glucose Point of Care 196 (65-105)
[2020-08-14] MEDS: INSULIN GLARGINE (*BKC) 100 UNITS/ML 12 UNITS SUB-Q (20:37)
[2020-08-14] MEDS: ATORVASTATIN 40 MG TABLET PO (20:37)
[2020-08-15] VITALS (20 sets, daily range): BP systolic 121–145; BP diastolic 51–88; PULSE 63–83; RESP 18–20; TEMP 35.7–36.5; O2SAT 93–97
[2020-08-15 01:00] LABS: Partial Thromboplastin Time 102.8 SECONDS (22.3-36.8)
[2020-08-15] MEDS: ASPIRIN 81 MG ENTERIC TABLET PO (08:10)
[2020-08-15] MEDS: FINASTERIDE 5 MG TABLET PO (08:10)
[2020-08-15] MEDS: METOPROLOL TARTRATE 25 MG TABLET PO ×2 (08:10→20:14)
[2020-08-15 08:24] LABS: Glucose Point of Care 118 (65-105)
[2020-08-15 08:28] LABS: Hematocrit 46.2 % (42.0-52.0); Hemoglobin 15.5 g/dL (14.0-18.0); Mean Corpuscular HGB Conc 33.5 g/dl (32-36); Mean Corpuscular Hemoglobin 31.6 pg (26-34); Mean Corpuscular Volume 94.3 fl (80-100); Mean Platelet Volume 10.5 fl (7.4-10.4); Platelet Count Result 206 k/mm3 (150-375)
[2020-08-15 08:41] LABS: Partial Thromboplastin Time 82.5 SECONDS (22.3-36.8)
[2020-08-15 08:43] LABS: Albumin Level 3.6 g/dL (3.5-5.1); Anion Gap 4 mmol/L (8-16); Blood Urea Nitrogen 40 mg/dL (9-20); Carbon Dioxide 30 mmol/L (22-30); Chloride 103 mmol/L (98-107); Estimated CRCL calculation 25 ml/min; Estimated Glomerular Filt Rate 23; Glucose 115 mg/dL (75-110); Phosphorus 3.1 mg/dL (2.5-4.5); Sodium 137 mmol/L (137-145)
--- NOTE | 2020-08-15 10:07 | WPDCDIQUERY2 ---
CDI Query Clarification Request -08/13 troponins 8.490, 10.900, 17.400 and 22.700 -08/14 EKG SINUS BRADYCARDIA VENTRICULAR PREMATURE COMPLEX RIGHT BUNDLE BRANCH BLOCK EXTENSIVE ANTERIOR INFARCT, AGE INDETERMINATE HIGH LATERAL INFARCT, AGE INDETERMINATE ST-T WAVE ABNORMALITY IN INFERIOR LEADS- CONSIDER ISCHEMIA BASELINE ARTIFACT- I, II, AVR ABNORMAL ECG - TnI trend (will likely be elevated due to renal failure), but does have ABNL EKG and is at risk for atypical cardiac presentation due to his diabetes documented after an episode of SOB by Dr Pisano. - Troponin elevations to a significant level and The patient's ECG does show some significant T-wave abnormalities during this event but no obvious current of injury. The likelihood that this is a type 2 infarction in this setting seems evident documented by Dr Gray Please clarify if Type II AK has been ruled in or ruled out. <Ailyn Payan RN - Last Filed: 08/15/20 10:16> Clarified Diagnosis (1) Non-STEMI (non-ST elevated myocardial infarction): Code(s): I21.4 - Non-ST elevation (NSTEMI) myocardial infarction <Ailyn Payan RN - Last Filed: 08/15/20 10:16> Status: Acute <Ailyn Payan RN - Last Filed: 08/15/20 10:16> Assessment and Plan: Patient with significant elevated tropes and cardiac echo showed moderate systolic dysfuntion with EF of 35% cardiolology suspect ischemic cardiomyopathy, type II AK was ruled out. <Bhupinder Johnson MD - Last Filed: 08/15/20 15:21>
--- NOTE | 2020-08-15 10:42 | PC.NURSE ---
Sunita () called in @1040 and was updated about the status of her from this nurse. All questions answered verbalized by Sunita.
--- NOTE | 2020-08-15 11:51 | PM.PNCARD ---
Progress Note: A&P Assessment and Plan (1) Non-STEMI (non-ST elevated myocardial infarction): Code(s): I21.4 - Non-ST elevation (NSTEMI) myocardial infarction Status: Acute Assessment and Plan: Significant injury occurred. He is asymptomatic at this point. EF 35% with multiple wall motion abnormalities. Likely multivessel disease. Eventually need a coronary angiogram but given his renal failure, this will be delayed. Medical management for now. Continue heparin for another 24 hours. Continue aspirin, statin, beta-faviola. Will repeat a troponin now to establish peak (2) Ischemic cardiomyopathy: Code(s): I25.5 - Ischemic cardiomyopathy Status: Acute Assessment and Plan: Moderate to severe with ejection fraction around 35% with multiple wall motion abnormalities seen. 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 care home use Diabetes mellitus complication status: with hyperglycemia Qualified Code(s): E11.65 - Type 2 diabetes mellitus with hyperglycemia Code(s): E11.9 - Type 2 diabetes mellitus without complications Status: Chronic (5) Paroxysmal A-fib: Code(s): I48.0 - Paroxysmal atrial fibrillation Status: Chronic (6) Acute kidney injury superimposed on chronic kidney disease: Code(s): N17.9 - Acute kidney failure, unspecified; N18.9 - Chronic kidney disease, unspecified Status: Acute Assessment and Plan: Uncertain as to what his baseline creatinine is but is likely to be least moderately impaired Subjective Date/time seen: 08/15/20 11:51 Interval history: 70-year-old cigarette smoker with history of type 2 diabetes and atrial fibrillation and kidney stones was admitted during the evening of 08/12 with left flank pain and found to have obstructed left ureter and multiple kidney stones. He admits to not taking his prescribed medications for about 1 year. He checks his blood sugars infrequently and when he does they are in the 300s. 08/13. 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 Patient stated he had episodes of choking after the vomiting. Vomiting began about 4 days prior to admission. Denied chest pain palpitations or edema. Denied melena hematochezia or hematuria. Symptoms are very similar to prior episodes of kidney stones. Date of service 08/15/2020: He feels okay today. Wants to go home. No chest pain, shortness of breath. Review of Systems Constitutional: Constitutional: Reports weakness Eyes: Eyes: Reports no additional eye complaints ENT: Reports system reviewed and no additional complaints, except as documented Cardiovascular: Cardiovascular: Reports no additional cardiovascular complaints and Reports dyspnea Respiratory: Respiratory: Reports as per HPI and Reports dyspnea Gastrointestinal: Gastrointestinal: Reports no additional gastrointestinal complaints Neurologic: Reports system reviewed and no additional complaints, except as documented and Reports weakness Endocrine: Endocrine: Reports no additional endocrine complaints Hematologic/Lymphatic: Hematologic/Lymphatic: Reports no additional hematologic/lymphatic complaints Allergic/Immunologic: Allergic/Immunologic: Reports no additional allergic/immunologic complaints Exam Const: General: comfortable and no acute distress Other: Elderly gentleman somewhat chronically ill-appearing appears to be in no distress of any kind this morning HENMT: Mouth: Yes dry mucous membranes Eyes: Sclera: sclerae normal Pupils: Equal, round and reactive pupils present Neck: Neck: supple and no JVD Other: Carotid pulses are intact bilaterally there are no bruits audible over the neck Resp: Effort & Inspection: normal respiratory effo
[2020-08-15 12:21] LABS: Glucose Point of Care 148 (65-105)
[2020-08-15] MEDS: HEPARIN SOD/D5W 100 UNITS/ML 25,000 UNITS/250 ML BAG 14 UNITS IV CONT (12:35)
--- NOTE | 2020-08-15 15:04 | PM.IMPN ---
Progress Note: A&P Assessment and Plan (1) Acute respiratory failure with hypoxia: Code(s): J96.01 - Acute respiratory failure with hypoxia Status: Acute Assessment and Plan: Although chest x-ray has the appearance of pulmonary edema, this pattern was present on admission prior to the administration of IV fluids. Patient was not short of breath prior to admission. Hypoxia and shortness of breath began during a vomiting and choking episode. Patient had been vomiting for 4 days prior to admission. He may have underlying congestive heart failure, have a ever his acute episode 08/13 seems to be due to aspiration of vomitus. 08/13 early a.m. received 1 dose of furosemide 40 mg IV push Will hold IV fluids at present Given combination of GI and respiratory symptoms with abnormal chest x-ray on presentation, will obtain COVID-19 swab Echocardiogram TSH CRP, Procalcitonin TnI trend (will likely be elevated due to renal failure), but does have ABNL EKG and is at risk for atypical cardiac presentation due to his diabetes F/u CXR (note that x-ray from 08/13 has no effusions, increased interstitial markings, some cephalization) Continue ceftriaxone Titrate oxygen to maintain sats mid-90s Monitor blood pressure, heart rate, intake and output 08/15/20 15:04. patient is 70-year-old male presented emergency department with left flank pain he was found to have ureteral stone and was seen by urologist and was taken to the urology lab and had a cystoscopy and stents were placed to help release kidney stone the procedure went well and patient's symptom improved, and also found to significant elevated tropes 22, however patient does not have any complaint of chest pain he did complain of shortness of breath and there was a suspicion the patient may have aspirated when he was vomiting, patient is seen by service advisor does not suspect acute coronary syndrome his EKG does not show any acute changes recommending conservative management and monitor, currently patient is been isolated and tested for COVID-19, denies any complaint of chest pain shortness of breath palpitation fever or chills, he wants to go home, patient is clinically stable will continue to monitor and further recommendation to follow tomorrow 08/15 patient covid is negative, patient had cardiac echo and it showed moderate reduction in systolic function with EF of 35% and multiple motion abnormalities however patient remains asymptomatic, seen by service advisor and suspect ischemic cardiomyopathy and needs angiogram to further evaluated however patient has kidney failure, suggested to continue heparin for 1 more day and continue aspirin, statin, BB ordered tropnine to trend the tropes. (2) Left ureteral calculus: Code(s): N20.1 - Calculus of ureter Status: Acute Assessment and Plan: Scheduled for stent placement and stone extraction today May require lithotripsy later Continue ceftriaxone (3) BETH (acute kidney injury): Code(s): N17.9 - Acute kidney failure, unspecified Status: Acute Assessment and Plan: Baseline creatinine level unknown Request records from [facility] where he was last treated for kidney stones (4) Chronic renal failure, stage 3 (moderate): Qualifiers: Chronic kidney disease stage 3 subtype: unspecified whether 3a or 3b Qualified Code(s): N18.30 - Chronic kidney disease, stage 3 unspecified Code(s): N18.30 - Chronic kidney disease, stage 3 unspecified Status: Chronic Assessment and Plan: Baseline creatinine level unknown (5) Paroxysmal A-fib: Code(s): I48.0 - Paroxysmal atrial fibrillation Status: Chronic Assessment and Plan: Currently sinus tachycardia Add low-dose beta-faviola when able to resume p.o. 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
[2020-08-15 16:06] LABS: Glucose Point of Care 163 (65-105)
[2020-08-15] MEDS: INSULIN GLARGINE (*BKC) 100 UNITS/ML 12 UNITS SUB-Q (20:14)
[2020-08-15] MEDS: ATORVASTATIN 40 MG TABLET PO (20:14)
[2020-08-15 20:54] LABS: Glucose Point of Care 269 (65-105)
[2020-08-16] VITALS (14 sets, daily range): BP systolic 135–147; BP diastolic 57–80; PULSE 57–78; RESP 12–20; TEMP 36.4–36.7; O2SAT 95–99
[2020-08-16 05:34] LABS: Hematocrit 46.3 % (42.0-52.0); Hemoglobin 14.9 g/dL (14.0-18.0); Mean Corpuscular HGB Conc 32.2 g/dl (32-36); Mean Corpuscular Volume 96.3 fl (80-100); Mean Platelet Volume 10.6 fl (7.4-10.4); Platelet Count Result 211 k/mm3 (150-375); Red Blood Count 4.81 M/mm3 (4.6-6.20); Red Cell Distribution Width 13.8 % (11.5-14.5)
[2020-08-16 05:54] LABS: Albumin Level 3.5 g/dL (3.5-5.1); Anion Gap 3 mmol/L (8-16); Blood Urea Nitrogen 39 mg/dL (9-20); Calcium 8.1 mg/dL (8.4-10.2); Carbon Dioxide 31 mmol/L (22-30); Chloride 104 mmol/L (98-107); Estimated CRCL calculation 30 ml/min; Estimated Glomerular Filt Rate 28; Glucose 165 mg/dL (75-110); Phosphorus 3.3 mg/dL (2.5-4.5); Potassium 4.5 mmol/L (3.4-5.0); Sodium 138 mmol/L (137-145)
[2020-08-16] MEDS: HEPARIN SOD/D5W 100 UNITS/ML 25,000 UNITS/250 ML BAG 14 UNITS IV CONT (08:00)
[2020-08-16] MEDS: FINASTERIDE 5 MG TABLET PO (08:01)
[2020-08-16] MEDS: ASPIRIN 81 MG ENTERIC TABLET PO (08:01)
[2020-08-16] MEDS: METOPROLOL TARTRATE 25 MG TABLET PO ×2 (08:01→19:58)
[2020-08-16] MEDS: INSULIN ASPART (*BKC) 100 UNITS/ML SUB-Q (08:05)
[2020-08-16 08:06] LABS: Glucose Point of Care 203 (65-105)
--- NOTE | 2020-08-16 12:11 | PM.PNCARD ---
Progress Note: A&P Assessment and Plan (1) Non-STEMI (non-ST elevated myocardial infarction): Code(s): I21.4 - Non-ST elevation (NSTEMI) myocardial infarction Status: Acute Assessment and Plan: Significant injury occurred. He is asymptomatic at this point. EF 35% with multiple wall motion abnormalities. Likely multivessel disease. Eventually need a coronary angiogram but given his renal failure, this will be delayed. Medical management for now. discontinue heparin now. Continue aspirin, statin, beta-faviola. (2) Ischemic cardiomyopathy: Code(s): I25.5 - Ischemic cardiomyopathy Status: Acute Assessment and Plan: Moderate to severe with ejection fraction around 35% with multiple wall motion abnormalities seen. 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: without correction use Diabetes mellitus complication status: with hyperglycemia Qualified Code(s): E11.65 - Type 2 diabetes mellitus with hyperglycemia Code(s): E11.9 - Type 2 diabetes mellitus without complications Status: Chronic (5) Paroxysmal A-fib: Code(s): I48.0 - Paroxysmal atrial fibrillation Status: Chronic (6) Acute kidney injury superimposed on chronic kidney disease: Code(s): N17.9 - Acute kidney failure, unspecified; N18.9 - Chronic kidney disease, unspecified Status: Acute Assessment and Plan: Uncertain as to what his baseline creatinine is but is likely to be least moderately impaired . Continues to improve Subjective Date/time seen: 08/16/20 12:11 Interval history: 70-year-old with kidney stone, shortness of breath, myocardial infarction Date of service 08/16/2020: He feels better. Anxious to go home. No chest pain or shortness of breath Review of Systems Constitutional: Constitutional: Reports weakness Eyes: Eyes: Reports no additional eye complaints ENT: Reports system reviewed and no additional complaints, except as documented Cardiovascular: Cardiovascular: Reports no additional cardiovascular complaints and Reports dyspnea Respiratory: Respiratory: Reports as per HPI and Reports dyspnea Gastrointestinal: Gastrointestinal: Reports no additional gastrointestinal complaints Genitourinary: Genitourinary: Reports hematuria Musculoskeletal: Musculoskeletal: Denies back pain Integumentary/Breasts: Skin/Breast: Denies skin swelling Neurologic: Reports system reviewed and no additional complaints, except as documented and Reports weakness Endocrine: Endocrine: Reports no additional endocrine complaints Hematologic/Lymphatic: Hematologic/Lymphatic: Reports no additional hematologic/lymphatic complaints Allergic/Immunologic: Allergic/Immunologic: Reports no additional allergic/immunologic complaints Exam Const: General: comfortable and no acute distress Other: Elderly gentleman somewhat chronically ill-appearing appears to be in no distress of any kind this morning HENMT: Mouth: Yes dry mucous membranes Eyes: Sclera: sclerae normal Pupils: Equal, round and reactive pupils present Neck: Neck: supple and no JVD Other: Carotid pulses are intact bilaterally there are no bruits audible over the neck Resp: Effort & Inspection: normal respiratory effort Other: Diffuse pulmonary wheezing and rhonchi. Expiratory phase is prolonged Cardio: Rate: regular rate Rhythm: regular rhythm Other: PMI not displaced. Very soft systolic murmur does not appear to radiate from the left sternal border GI: Auscultation: normal bowel sounds Skin: General skin exam: normal color Neuro: Cranial nerves: Yes Equal, round and reactive pupils present Cognition (Neuro): normal cognition Extrem: Other: No lower extremity edema pulses are not palpable in the lower extremities below the
[2020-08-16 12:16] LABS: Glucose Point of Care 165 (65-105)
--- NOTE | 2020-08-16 15:02 | PM.IMPN ---
Progress Note: A&P Assessment and Plan (1) Acute respiratory failure with hypoxia: Code(s): J96.01 - Acute respiratory failure with hypoxia Status: Acute Assessment and Plan: 08/16/20 15:02 08/14 patient is 70-year-old male presented emergency department with left flank pain he was found to have ureteral stone and was seen by urologist and was taken to the urology lab and had a cystoscopy and stents were placed to help release kidney stone the procedure went well and patient's symptom improved, and also found to significant elevated tropes 22, however patient does not have any complaint of chest pain he did complain of shortness of breath and there was a suspicion the patient may have aspirated when he was vomiting, patient is seen by tile layer supervisor does not suspect acute coronary syndrome his EKG does not show any acute changes recommending conservative management and monitor, currently patient is been isolated and tested for COVID-19, denies any complaint of chest pain shortness of breath palpitation fever or chills, he wants to go home, patient is clinically stable will continue to monitor and further recommendation to follow tomorrow 08/15 patient covid is negative, patient had cardiac echo and it showed moderate reduction in systolic function with EF of 35% and multiple motion abnormalities however patient remains asymptomatic, seen by tile layer supervisor and suspect ischemic cardiomyopathy and needs angiogram to further evaluated however patient has kidney failure, suggested to continue heparin for 1 more day and continue aspirin, statin, BB ordered tropnine to trend the tropes. 08/16 repeat tropes are trending down, patient is seen by tile layer supervisor and suspect patient has ischemic cardiomyopathy as patient ejection fraction is 35% and will benefit getting cardiac catheterization however patient creatinine is quite elevated therefore his postponed until creatinine has improved, patient clinically stable, will have a PT OT evaluate the patient, patient will benefit going for cardiac rehab and further recommendation to follow (2) Left ureteral calculus: Code(s): N20.1 - Calculus of ureter Status: Acute Assessment and Plan: Patient was seen by urology was taken to urology lab had a cystoscopy stone was extracted the stent is placed urine culture short no growth (3) BETH (acute kidney injury): Code(s): N17.9 - Acute kidney failure, unspecified Status: Acute Assessment and Plan: Acute on chronic most likely secondary longstanding hypertension clinically patient is stable (4) Paroxysmal A-fib: Code(s): I48.0 - Paroxysmal atrial fibrillation Status: Chronic Assessment and Plan: Rate is controlled currently on heparin. Subjective Date/time seen: 08/16/20 15:02 08/14 patient is 70-year-old male presented emergency department with left flank pain he was found to have ureteral stone and was seen by urologist and was taken to the urology lab and had a cystoscopy and stents were placed to help release kidney stone the procedure went well and patient's symptom improved, and also found to significant elevated tropes 22, however patient does not have any complaint of chest pain he did complain of shortness of breath and there was a suspicion the patient may have aspirated when he was vomiting, patient is seen by tile layer supervisor does not suspect acute coronary syndrome his EKG does not show any acute changes recommending conservative management and monitor, currently patient is been isolated and tested for COVID-19, denies any complaint of chest pain shortness of breath palpitation fever or chills, he wants to go home, patient is clinically stable will continue to monitor and further recommendation to follow tomorrow 08/15 patient covid is negative, patient had cardiac echo and it showed moderate reduction in systolic function with EF of 35% and multiple motion abnormalities however patient remains asymptomatic,
[2020-08-16 16:45] LABS: Glucose Point of Care 164 (65-105)
[2020-08-16] MEDS: INSULIN GLARGINE (*BKC) 100 UNITS/ML 12 UNITS SUB-Q (19:56)
[2020-08-16] MEDS: ATORVASTATIN 40 MG TABLET PO (19:58)
[2020-08-16 20:13] LABS: Glucose Point of Care 172 (65-105)
[2020-08-17] VITALS (9 sets, daily range): BP systolic 130–142; BP diastolic 47–81; PULSE 56–76; RESP 16–22; TEMP 36.3–36.6; O2SAT 95–98
[2020-08-17 05:54] LABS: Hemoglobin 14.9 g/dL (14.0-18.0); Mean Corpuscular HGB Conc 33.1 g/dl (32-36); Mean Corpuscular Hemoglobin 31.6 pg (26-34); Mean Corpuscular Volume 95.3 fl (80-100); Mean Platelet Volume 10.5 fl (7.4-10.4); Platelet Count Result 216 k/mm3 (150-375); Red Blood Count 4.72 M/mm3 (4.6-6.20); Red Cell Distribution Width 13.5 % (11.5-14.5); White Blood Count 8.8 K/mm3 (4.5-10.0)
[2020-08-17 06:20] LABS: Albumin Level 3.5 g/dL (3.5-5.1); Anion Gap 4 mmol/L (8-16); Blood Urea Nitrogen 32 mg/dL (9-20); Calcium 8.5 mg/dL (8.4-10.2); Carbon Dioxide 30 mmol/L (22-30); Chloride 104 mmol/L (98-107); Estimated CRCL calculation 34 ml/min; Estimated Glomerular Filt Rate 33; Glucose 128 mg/dL (75-110); Phosphorus 3.3 mg/dL (2.5-4.5); Sodium 138 mmol/L (137-145)
[2020-08-17 06:54] LABS: Potassium 4.1 mmol/L (3.4-5.0)
[2020-08-17] MEDS: FINASTERIDE 5 MG TABLET PO (08:08)
[2020-08-17] MEDS: ASPIRIN 81 MG ENTERIC TABLET PO (08:08)
[2020-08-17] MEDS: METOPROLOL TARTRATE 25 MG TABLET PO (08:10)
[2020-08-17 08:34] LABS: Glucose Point of Care 140 (65-105)
[2020-08-17 12:11] LABS: Glucose Point of Care 247 (65-105)
[2020-08-17] MEDS: INSULIN ASPART (*BKC) 100 UNITS/ML SUB-Q (13:06)
--- NOTE | 2020-08-17 14:35 | PM.PNCARD ---
Progress Note: A&P Assessment and Plan (1) Non-STEMI (non-ST elevated myocardial infarction): Code(s): I21.4 - Non-ST elevation (NSTEMI) myocardial infarction Status: Acute Assessment and Plan: Significant injury occurred. He is asymptomatic at this point. EF 35% with multiple wall motion abnormalities. Likely multivessel disease. Eventually need a coronary angiogram but given his renal failure, this will be delayed. Medical management for now. Continue aspirin, statin, beta-faviola. (2) Ischemic cardiomyopathy: Code(s): I25.5 - Ischemic cardiomyopathy Status: Acute Assessment and Plan: Moderate to severe with ejection fraction around 35% with multiple wall motion abnormalities seen. Since his renal function continues to improve, I am going to start him on low-dose losartan 12.5 mg p.o. daily for better blood pressure control, because of his CHF/cardiomyopathy, diabetes and renal failure 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: Diabetes mellitus parts counterman insulin use: without parts counterman use Diabetes mellitus complication status: with hyperglycemia Qualified Code(s): E11.65 - Type 2 diabetes mellitus with hyperglycemia Code(s): E11.9 - Type 2 diabetes mellitus without complications Status: Chronic (5) Paroxysmal A-fib: Code(s): I48.0 - Paroxysmal atrial fibrillation Status: Chronic (6) Acute kidney injury superimposed on chronic kidney disease: Code(s): N17.9 - Acute kidney failure, unspecified; N18.9 - Chronic kidney disease, unspecified Status: Acute Assessment and Plan: Continues to improve Subjective Date/time seen: 08/17/20 14:35 Interval history: 70-year-old with kidney stone, shortness of breath, myocardial infarction Date of service 08/17/2020: He feels better. Anxious to go home. No chest pain or shortness of breath. No complaints Review of Systems Constitutional: Constitutional: Reports weakness Eyes: Eyes: Reports no additional eye complaints ENT: Reports system reviewed and no additional complaints, except as documented Cardiovascular: Cardiovascular: Reports no additional cardiovascular complaints and Reports dyspnea Respiratory: Respiratory: Reports as per HPI and Reports dyspnea Gastrointestinal: Gastrointestinal: Reports no additional gastrointestinal complaints Genitourinary: Genitourinary: Reports hematuria Musculoskeletal: Musculoskeletal: Denies back pain Integumentary/Breasts: Skin/Breast: Denies skin swelling Neurologic: Reports system reviewed and no additional complaints, except as documented and Reports weakness Endocrine: Endocrine: Reports no additional endocrine complaints Hematologic/Lymphatic: Hematologic/Lymphatic: Reports no additional hematologic/lymphatic complaints Allergic/Immunologic: Allergic/Immunologic: Reports no additional allergic/immunologic complaints Exam Const: General: comfortable and no acute distress Other: Elderly gentleman somewhat chronically ill-appearing appears to be in no distress of any kind this morning HENMT: Mouth: Yes dry mucous membranes Eyes: Sclera: sclerae normal Pupils: Equal, round and reactive pupils present Neck: Neck: supple and no JVD Other: Carotid pulses are intact bilaterally there are no bruits audible over the neck Resp: Effort & Inspection: normal respiratory effort Other: Diffuse pulmonary wheezing and rhonchi. Expiratory phase is prolonged Cardio: Rate: regular rate Rhythm: regular rhythm Other: PMI not displaced. Very soft systolic murmur does not appear to radiate from the left sternal border GI: Auscultation: normal bowel sounds Skin: General skin exam: normal color Neuro: Cranial nerves: Yes Equal, round and reactive pupils present Cognition (Neuro): normal cognit
--- NOTE | 2020-08-17 15:04 | PM.DS ---
DS: Admitting Diagnosis Admitting Diagnosis Admitting Diagnosis: Chief Complaint: Nausea vomiting DS: Discharge Diagnosis Discharge Diagnosis (1) Acute respiratory failure with hypoxia: Code(s): J96.01 - Acute respiratory failure with hypoxia Status: Acute Assessment and Plan: 08/16/20 15:02 08/14 patient is 70-year-old male presented emergency department with left flank pain he was found to have ureteral stone and was seen by urologist and was taken to the urology lab and had a cystoscopy and stents were placed to help release kidney stone the procedure went well and patient's symptom improved, and also found to significant elevated tropes 22, however patient does not have any complaint of chest pain he did complain of shortness of breath and there was a suspicion the patient may have aspirated when he was vomiting, patient is seen by sandwich hand does not suspect acute coronary syndrome his EKG does not show any acute changes recommending conservative management and monitor, currently patient is been isolated and tested for COVID-19, denies any complaint of chest pain shortness of breath palpitation fever or chills, he wants to go home, patient is clinically stable will continue to monitor and further recommendation to follow tomorrow 08/15 patient covid is negative, patient had cardiac echo and it showed moderate reduction in systolic function with EF of 35% and multiple motion abnormalities however patient remains asymptomatic, seen by sandwich hand and suspect ischemic cardiomyopathy and needs angiogram to further evaluated however patient has kidney failure, suggested to continue heparin for 1 more day and continue aspirin, statin, BB ordered tropnine to trend the tropes. 08/16 repeat tropes are trending down, patient is seen by sandwich hand and suspect patient has ischemic cardiomyopathy as patient ejection fraction is 35% and will benefit getting cardiac catheterization however patient creatinine is quite elevated therefore his postponed until creatinine has improved, patient clinically stable, will have a PT OT evaluate the patient, patient will benefit going for cardiac rehab and further recommendation to follow (2) Left ureteral calculus: Code(s): N20.1 - Calculus of ureter Status: Acute Assessment and Plan: Patient was seen by urology was taken to urology lab had a cystoscopy stone was extracted the stent is placed urine culture short no growth (3) BETH (acute kidney injury): Code(s): N17.9 - Acute kidney failure, unspecified Status: Acute Assessment and Plan: Acute on chronic most likely secondary longstanding hypertension clinically patient is stable (4) Paroxysmal A-fib: Code(s): I48.0 - Paroxysmal atrial fibrillation Status: Chronic Assessment and Plan: Rate is controlled currently on heparin. DS: Summary Hospital Course Reason for hospitalization: this is a 70-year-old male patient who has had a past medical history of having kidney stones. The patient has also had a history of atrial fibrillation but no longer takes his rate controlling medications or anticoagulation. According to the the patient does not take any of his medications that he is supposed to. He is also diabetic and does not take any his medications. Complaints of nausea vomiting with some generalized weakness. He complained of flank pain as well. The patient was not able to keep any fluids down. He is not currently seeing a urologist. The patient felt like he was dehydrated wanted something to drink. I gave him ice chips in the emergency room however that made him nauseated. The patient was given Zofran and IV fluids. He is also started on ceftriaxone. His white count is 14.0. Neutrophil percentage 89.4. Patient's creatinine is 2.7. Glucose is 168. Patient has 2+ glucose, protein, and blood in his urine. CT of the abdomen was read by radiology 1. Total of 5 left ureteral stones iden
[2020-08-17] MEDS: LOSARTAN POTASSIUM 12.5 MG TABLET PO (15:57)
== END 2020-08-17 16:45 | disposition home or self-care (01) | DRG 660 ==
LOC: ANHED 19:17 → ANH2MED 22:10 → ANH3MEDSUR 08-13 10:52 → ANHIMU 08-13 20:55
PROVIDERS: Emergency Medicine; Internal Medicine; Internal Medicine Cardiovascular Disease; Nurse Practitioner; Urology; Admitting Provider Internal Medicine; Emergency Provider Emergency Medicine; Visit Provider Family Medicine
PROC: 0T778DZ Dilation of Left Ureter with Intraluminal Device, Via Natural or Artificial Opening Endoscopic (ICD-10-PCS; CPT 52352; principal; 2020-08-13 09:00)
DX: N20.2 Calculus of kidney with calculus of ureter (principal); N17.9 Acute kidney failure, unspecified; I48.20 Chronic atrial fibrillation, unspecified; T17.818A Gastric contents in other parts of respiratory tract causing other injury, initial encounter; N21.0 Calculus in bladder; Z20.822 Contact with and (suspected) exposure to COVID-19; I25.5 Ischemic cardiomyopathy; E86.0 Dehydration; E11.22 Type 2 diabetes mellitus with diabetic chronic kidney disease; I12.9 Hypertensive chronic kidney disease with stage 1 through stage 4 chronic kidney disease, or unspecified chronic kidney disease; N18.30 Chronic kidney disease, stage 3 unspecified; N40.1 Benign prostatic hyperplasia with lower urinary tract symptoms; L40.9 Psoriasis, unspecified; F17.210 Nicotine dependence, cigarettes, uncomplicated; Z91.14 Patient's other noncompliance with medication regimen
CPT/HCPCS: 36415; 71045; 74018; 74176; 74420; 80048; 80053; 80069; 81001; 82365; 82948; 83036; 83690; 83735; 83970; 84100; 84145; 84443; 84484; 85025; 85027; 85610; 85730; 86140; 87086; 88300; 93005; 93306; 94640; 96361; 96365; 96366; 96367; 96375; 96376; 99285; A9270; C1758; C1769; C1887; C2617; C9803; G0378; J0696; J1100; J1644; J1815; J1940; J2405; J2704; J3010; J7030; J7050; J7120; Q9966; U0003; U0005

== ENCOUNTER 2020-09-15 13:15 | Outpatient (CLI) | payer MEDICARE, SELFPAY ==
[2020-09-15 13:51] LABS: INR 0.9; Partial Thromboplastin Time 32.2 SECONDS (22.3-36.8); Prothrombin Time 13.1 Seconds (11.1-14.7)
== END 2020-09-15 13:16 | disposition home or self-care (01) ==
LOC: ANHSURGERY 13:22
PROVIDERS: Visit Provider Urology
DX: N20.1 Calculus of ureter (principal); Z01.818 Encounter for other preprocedural examination
CPT/HCPCS: 36415; 85610; 85730; 87086

== ENCOUNTER → 2020-09-19 02:10 | Outpatient (CLI) | payer MEDICARE, SELFPAY ==
[2020-09-19 19:24] LABS: SARS-CoV-2 RNA PCR Negative
== END ==
PROVIDERS: Visit Provider Urology
DX: Z01.812 Encounter for preprocedural laboratory examination (principal); Z20.822 Contact with and (suspected) exposure to COVID-19
CPT/HCPCS: C9803; U0003; U0005

== ENCOUNTER 2020-09-22 01:10 | Day surgery (SDC) | payer MEDICARE, SELFPAY ==
--- NOTE | 2020-09-14 07:10 | PM.HPGS ---
History of Present Illness History of Present Illness Consent: Risks, benefits, and alternatives have been discussed and questions answered. Patient agrees to proceed with procedure. Chief complaint: Renal and Ureteral Stones Narrative: Giovanni Drew is a 70 year old male who was admitted [facility] in July 2019. The time he had a small myocardial infarction. He also complained of left flank pain and CT imaging showed small stones in his left proximal ureter and larger ones in his left renal pelvis. Ureteral stent was placed and, after cardiac clearance, he now presents for left ESWL. He is aware the risks including, but not limited to, persistent stone following this procedure, injury to the kidney with perinephric hematoma. Review of Systems Cardiovascular: Cardiovascular: Denies chest pain, Denies lightheadedness, Denies palpitations and Denies dyspnea Respiratory: Respiratory: Denies dyspnea Gastrointestinal: Gastrointestinal: Denies diarrhea, Denies nausea and Denies vomiting Genitourinary: Genitourinary: Denies hematuria and Denies dysuria Endocrine: Endocrine: Denies palpitations PMFSH Past Medical History Medical History Chronic renal failure, stage 3 (moderate) DM2 (diabetes mellitus, type 2) DVT (deep venous thrombosis) Paroxysmal A-fib Psoriasis Tobacco abuse Surgical History Surgical History H/O craniotomy Subdural hematoma S/P arthroscopic surgery of right knee Family History Family History Mother Cerebrovascular accident Diabetes mellitus Father Natural with proved cause Social History Social History Social History: The patient is and has 4 biological children. The patient is a full code. His is the durable power civil litigation attorney for healthcare. 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 Patient smokes 1 and half packs of cigarettes a day. He denies any alcohol or illicit drugs. Smoking packs per day: 1.5 Smoking cigarettes per day: 30.0 Smoking status: Current every day smoker Tobacco type: cigarettes Second hand tobacco smoke exposure: Yes Alcohol intake: current Drinks per week: 0 Substance use: never Gender identity (if verbalized by the patient): Male Spiritual care concerns: No Meds Home Medications and Allergies Home Medications Medication Instructions Recorded Confirmed Type albuterol sulfate [Proventil HFA] 2 puff INHALATION Q6HRT PRN #1 inh 08/17/20 Rx aspirin 81 mg PO QAM #30 tablet 08/17/20 Rx atorvastatin 40 mg PO HS #30 tablet 08/17/20 Rx finasteride [Proscar] 5 mg PO QAM #30 tablet 08/17/20 Rx losartan 12.5 mg PO DAILY #30 tablet 08/17/20 Rx metoprolol tartrate 25 mg PO Q12HR #60 tablet 08/17/20 Rx Allergies Allergy/AdvReac Type Severity Reaction Status Date / Time Penicillins Allergy Rash Verified 08/31/20 13:35 Exam Const: General: no acute distress Resp: Effort & Inspection: normal respiratory effort GI: Inspection: non-distended GI Palp: No abdominal tenderness and No Guarding due to palpation present (GI) Auscultation: normal bowel sounds Assessment and Plan Assessment and plan (1) Left ureteral calculus: Code(s): N20.1 - Calculus of ureter Status: Acute (2) Left renal stone: Code(s): N20.0 - Calculus of kidney Status: Acute Assessment and Plan: Left ESWL
[2020-09-14 14:18] VITALS: BMI 23.1
--- NOTE | 2020-09-21 10:15 | WPDANESEPPF ---
Anes - Initial Pre Proc Eval Procedure: Operation Date: 09/22/20 07:30 Proposed Procedures p Left Extracorporeal Shock Wave Lithotripsy - Taye Brannon MD Date/Time: 09/21/20 10:15 Surgeon: Taye Brannon MD Pre Op Diagnosis: Renal and Ureteral Stones Patient Data Age: 70 Gender: M Height: 1.83 m Weight: 77.15 kg Allergies Allergy/AdvReac Type Severity Reaction Status Date / Time Penicillins Allergy Rash,SOB Verified 09/14/20 13:38 Home Medications Medication Instructions Recorded Confirmed Type albuterol sulfate [Proventil HFA] 2 puff INHALATION Q6HRT PRN #1 inh 08/17/20 09/14/20 Rx aspirin 81 mg PO QAM #30 tablet 08/17/20 09/14/20 Rx atorvastatin 40 mg PO HS #30 tablet 08/17/20 09/14/20 Rx finasteride [Proscar] 5 mg PO QAM #30 tablet 08/17/20 09/14/20 Rx losartan 12.5 mg PO DAILY #30 tablet 08/17/20 09/14/20 Rx metoprolol tartrate 25 mg PO Q12HR #60 tablet 08/17/20 09/14/20 Rx metformin 1,000 mg PO BID 09/14/20 09/14/20 History Patient hx anesthesia problems: none Family hx [facility] problems: none [facility] Past Medical History Medical History (Updated 09/21/20 @ 10:23 by Giorgio Corcoran DO) Chronic renal failure, stage 3 (moderate) COPD (chronic obstructive pulmonary disease) DM2 (diabetes mellitus, type 2) DVT (deep venous thrombosis) History of heart attack 07/2020 EF 35% Paroxysmal A-fib Psoriasis Tobacco abuse Surgical History Surgical History H/O craniotomy Subdural hematoma S/P arthroscopic surgery of right knee Family History Family History Mother Cerebrovascular accident Diabetes mellitus Father Natural with proved cause Social History Social History Social History: The patient is and has 4 biological children. The patient is a full code. His is the durable power regulatory attorney for healthcare. 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 Patient smokes 1 and half packs of cigarettes a day. He denies any alcohol or illicit drugs. Smoking packs per day: 1.5 Smoking cigarettes per day: 30.0 Years smoked: 50 Smoking pack-years: 75.00 Smoking status: Current every day smoker Tobacco type: cigarettes Second hand tobacco smoke exposure: Yes Alcohol intake: current Drinks per week: 0 Substance use: never Living arrangements: with family Gender identity (if verbalized by the patient): Male Spiritual care concerns: No Anes - Eval Final PreProcedure Day of Procedure 09/21/20 10:15 Patient weight: normal Heart: regular rate and rhythm Lungs: clear to auscultation and normal air movement Airway: Mallampati scale class III and special considerations poor dentition Neurological: alert and oriented Last oral intake: >/= 8 hours ASA classification: IV Emergent: no Anesthetic plan: proceed Anesthesia type and monitoring: general LMA and standard monitoring Informed Consent: The patient's anesthetic plan and its attendant risks and benefits were discussed with the patient/family/POA. Questions were solicited and answers provided to the satisfaction of the patient/family/POA.
--- NOTE | ~2020-09-22 | XR_ITS ---
EXAMINATION: XR abdomen/kub 1V INDICATION: Left ureteral stones TECHNIQUE: Supine view of the abdomen is obtained COMPARISON: 08/13/2020 FINDINGS: A left internal ureteral stent is in expected position. Many of the previously seen left ki dney stones has migrated into the ureter and are seen adjacent to the ureteral stent. Approximately f quincy stones are present in the proximal ureter measuring up to 12 mm. There is a 5 mm stone in the mid ureter between the left L5 and S1 transverse processes. A 6 mm stone projects over the sacrum in the distal ureter. There is a 7 mm stone at the left ureterovesicular junction. Stones measuring up to 3 mm are seen in the left kidney. A 4 mm stone is seen in the right kidney. The bowel gas pattern is n ormal. IMPRESSION: 1. Left internal ureteral stent in expected position with multiple stones now seen adjacent to the st ent in the proximal, mid, and distal ureter. 2. Bilateral nephrolithiasis. Reviewed, dictated and finalized at location A. IMPRESSION: 1. Left internal ureteral stent in expected position with multiple stones now s een adjacent to the stent in the proximal, mid, and distal ureter. 2. Bilateral nephrolithiasis.
--- NOTE | 2020-09-22 06:20 | WPDHPUPDATE1 ---
History and Physical Update Update Date/Time: 09/22/20 06:20 History and Physical has been reviewed, including an updated exam of the patient. There are NO changes in the patient's condition. Risks, benefits, and alternatives have been discussed and questions answered. Patient agrees to proceed with procedure.
[2020-09-22 07:00] VITALS: BP 147/62; PULSE 70; RESP 18; TEMP 36.2; O2SAT 99
[2020-09-22] MEDS: LACTATED RINGERS 1,000 ML 30 ML IV CONT (07:06)
[2020-09-22 07:08] LABS: Glucose Point of Care 150 (65-105)
[2020-09-22] MEDS: levoFLOXacin 500 MG/D5W 100 ML 500 MG/100 ML BAG 100 MG IVPB (07:19)
--- NOTE | 2020-09-22 07:54 | PM.PROC ---
Procedure Note - Detailed Date of procedure: 09/22/20 Pre-op diagnosis: Renal and Ureteral Stones Post-op diagnosis: same Procedure performed: Left ESWL Description of procedure: The patient was brought to the operative suite where he was placed in the supine position on the Dornier lithotripsy table. The focal point of the lithotripter was placed at a collection of 5-6 stones (each 5-7mm) in his proximal left ureter/left UPJ. A total of 3000 shocks were delivered at a power setting of 4. There appeared to be good fragmentation of the stone. The patient tolerated the procedure well and was taken to the recovery room in good condition. Anesthesia: GLMA Surgeon: Taye Brannon MD Drains: No Packing: No Pathology: none sent Complications: No immediate complications Condition: stable Disposition: PACU
[2020-09-22 08:15] VITALS: BP 124/62; PULSE 60; RESP 15; TEMP 36.4; O2SAT 100
[2020-09-22 08:24] LABS: Glucose Point of Care 148 (65-105)
[2020-09-22 08:30] VITALS: BP 143/68; PULSE 60; RESP 16; O2SAT 100
[2020-09-22 08:40] VITALS: BP 113/61; PULSE 67; RESP 16; O2SAT 100
[2020-09-22 08:50] VITALS: BP 116/51; PULSE 64
[2020-09-22 09:20] VITALS: BP 139/62; PULSE 65
--- NOTE | 2020-09-22 09:39 | SUR.PHASEII ---
Patient is stable and just waiting for ride.
== END 2020-09-22 09:54 | disposition home or self-care (01) ==
PROVIDERS: Visit Provider Urology
PROC: (CPT 50590; principal; 2020-09-22 07:30)
DX: N20.2 Calculus of kidney with calculus of ureter (principal); J44.9 Chronic obstructive pulmonary disease, unspecified; N18.30 Chronic kidney disease, stage 3 unspecified; E11.22 Type 2 diabetes mellitus with diabetic chronic kidney disease; I48.0 Paroxysmal atrial fibrillation; I25.2 Old myocardial infarction; L40.9 Psoriasis, unspecified; Z86.718 Personal history of other venous thrombosis and embolism; Z79.84 Long term (current) use of oral hypoglycemic drugs; Z79.82 Long term (current) use of aspirin; Z79.51 Long term (current) use of inhaled steroids; F17.210 Nicotine dependence, cigarettes, uncomplicated
CPT/HCPCS: 50590; 36415; 74018; 82948; 85610; 85730; 87086; C9803; J1956; J2250; J2370; J2405; J2704; J3010; J7120; U0003; U0005

== ENCOUNTER 2020-10-06 15:55 | Outpatient (CLI) | payer MEDICARE, SELFPAY ==
--- NOTE | ~2020-10-06 | XR_ITS ---
EXAMINATION: XR abdomen/kub 1V INDICATION: Kidney stones TECHNIQUE: Supine views of the abdomen were obtained on 2 radiographs. COMPARISON: 09/22/2020 FINDINGS: A left internal ureteral stent into position. Multiple stones project near the proximal asp ect of the stent but appears smaller in size. There is increase in number of small stones adjacent to the distal aspect of the stent. There appear to be a few stones projecting adjacent to the mid stent at the level of the L5 transverse process. Bowel contents project over the kidneys limiting sensitiv ity for renal stones. Stones measuring up to 3 mm are again seen in the left kidney. There is a 4 mm stone of the right kidney. The bowel gas pattern is normal. The lung bases are clear. 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 IMPRESSION: 1. Decrease in size of multiple stones adjacent to the proximal internal ureteral stent and increase in number of small stones adjacent to the mid and distal aspect of the stent. 2. Bilateral nephrolithiasis. Reviewed, dictated and finalized at location A. IMPRESSION: 1. Decrease in size of multiple stones adjacent to the proximal internal ureter al stent and increase in number of small stones adjacent to the mid and distal aspect of the stent. 2. Bilateral nephrolithiasis.
== END 2020-10-06 15:56 | disposition home or self-care (01) ==
LOC: ANHIMG 16:01
PROVIDERS: Visit Provider Nurse Practitioner Adult Health
DX: N20.0 Calculus of kidney (principal)
CPT/HCPCS: 74018

== ENCOUNTER 2020-10-27 11:49 | Outpatient (CLI) | payer MEDICARE, SELFPAY ==
--- NOTE | ~2020-10-27 | XR_ITS ---
XR abdomen/kub 1V 10/27/2020 12:08 Indication: Left ureteral stent Procedure: KUB Comparison: 10/06/2020 Findings: Left internal ureteral stent in expected position. There are left renal and ureteral stones in the mid and distal aspect of the left ureter. Bowel pattern is nonobstructive. Moderate colonic f ecal loading lung bases are unremarkable. Mild-moderate lumbar spondylosis. Impression: 1: Persistent left renal and ureteral stone with left internal ureteral stent in expected position. Reviewed, dictated and finalized at location B. Impression: 1: Persistent left renal and ureteral stone with left internal ureteral stent i n expected position.
== END 2020-10-27 11:50 | disposition home or self-care (01) ==
PROVIDERS: Visit Provider Nurse Practitioner Adult Health
DX: N20.2 Calculus of kidney with calculus of ureter (principal); M47.816 Spondylosis without myelopathy or radiculopathy, lumbar region
CPT/HCPCS: 74018

== ENCOUNTER 2020-11-13 13:44 | Outpatient (CLI) | payer MEDICARE, SELFPAY ==
[2020-11-13 14:12] LABS: Anion Gap 9 mmol/L (8-16); Blood Urea Nitrogen 16 mg/dL (9-20); Calcium 9.3 mg/dL (8.4-10.2); Carbon Dioxide 27 mmol/L (22-30); Chloride 105 mmol/L (98-107); Estimated Glomerular Filt Rate 33; Glucose 188 mg/dL (75-110); Potassium 4.4 mmol/L (3.4-5.0); Sodium 141 mmol/L (137-145)
[2020-11-13 14:20] LABS: INR 0.9; Prothrombin Time 13.1 Seconds (11.1-14.7)
[2020-11-13 14:21] LABS: Partial Thromboplastin Time 29.9 SECONDS (22.3-36.8)
== END 2020-11-13 13:45 | disposition home or self-care (01) ==
LOC: ANHSURGERY 13:47
PROVIDERS: Anesthesiology; Visit Provider Urology
DX: N20.1 Calculus of ureter (principal); E11.9 Type 2 diabetes mellitus without complications; Z01.818 Encounter for other preprocedural examination
CPT/HCPCS: 36415; 80048; 85610; 85730; 87086

== ENCOUNTER 2020-11-17 01:35 | Day surgery (SDC) | payer MEDICARE, SELFPAY ==
--- NOTE | 2020-11-09 07:19 | PM.HPGS ---
History of Present Illness History of Present Illness Consent: Risks, benefits, and alternatives have been discussed and questions answered. Patient agrees to proceed with procedure. Chief complaint: left ureteral stone Narrative: Giovanni Drew is a 70 year old male was to history of urolithiasis who underwent ESWL to some large stones in his proximal left ureter in early September 2016. He has several residual fragments and, after discussion of therapeutic options including endoscopic extraction and repeat ESWL, he has elected for the latter. He is aware the risk including, but not limited to, adverse cardiopulmonary events, residual stone fragments , renal injury perinephric hematoma and hematuria Review of Systems Cardiovascular: Cardiovascular: Denies chest pain, Denies lightheadedness, Denies palpitations and Denies dyspnea Respiratory: Respiratory: Denies dyspnea Gastrointestinal: Gastrointestinal: Denies diarrhea, Denies nausea and Denies vomiting Genitourinary: Genitourinary: Denies hematuria and Denies dysuria Endocrine: Endocrine: Denies palpitations PMFSH Past Medical History Medical History Chronic renal failure, stage 3 (moderate) COPD (chronic obstructive pulmonary disease) DM2 (diabetes mellitus, type 2) DVT (deep venous thrombosis) History of heart attack 07/2020 EF 35% Paroxysmal A-fib Psoriasis Tobacco abuse Surgical History Surgical History H/O craniotomy Subdural hematoma S/P arthroscopic surgery of right knee Family History Family History Mother Cerebrovascular accident Diabetes mellitus Father Natural with proved cause Social History Social History Social History: The patient is and has 4 biological children. The patient is a full code. His is the durable power state's attorney for healthcare. 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 Patient smokes 1 and half packs of cigarettes a day. He denies any alcohol or illicit drugs. Smoking packs per day: 1.5 Smoking cigarettes per day: 30.0 Years smoked: 50 Smoking pack-years: 75.00 Smoking status: Current every day smoker Tobacco type: cigarettes Second hand tobacco smoke exposure: Yes Alcohol intake: current Drinks per week: 0 Substance use: never Gender identity (if verbalized by the patient): Male Spiritual care concerns: No Meds Home Medications and Allergies Home Medications Medication Instructions Recorded Confirmed Type albuterol sulfate [Proventil HFA] 2 puff INHALATION Q6HRT PRN #1 inh 08/17/20 09/22/20 Rx aspirin 81 mg PO QAM #30 tablet 08/17/20 09/22/20 Rx atorvastatin 40 mg PO HS #30 tablet 08/17/20 09/22/20 Rx finasteride [Proscar] 5 mg PO QAM #30 tablet 08/17/20 09/22/20 Rx losartan 12.5 mg PO DAILY #30 tablet 08/17/20 09/22/20 Rx metoprolol tartrate 25 mg PO Q12HR #60 tablet 08/17/20 09/22/20 Rx metformin 1,000 mg PO BID 09/14/20 09/22/20 History ciprofloxacin HCl 500 mg PO Q12H #6 tablet 09/22/20 Rx hydrocodone-acetaminophen 1 - 2 tablet PO Q6H PRN #20 tablet 09/22/20 Rx Allergies Allergy/AdvReac Type Severity Reaction Status Date / Time Penicillins Allergy Rash,SOB Verified 09/22/20 07:54 Exam Const: General: no acute distress Resp: Effort & Inspection: normal respiratory effort GI: Inspection: non-distended GI Palp: No abdominal tenderness and No Guarding due to palpation present (GI) Auscultation: normal bowel sounds Assessment and Plan Assessment and plan (1) Left ureteral calculus: Code(s): N20.1 - Calculus of ureter Status: Acute Assessment and Plan: Left ESWL
[2020-11-13 08:54] VITALS: BMI 23.6
--- NOTE | ~2020-11-17 | XR_ITS ---
EXAMINATION: XR abdomen/kub 1V DATE: 11/17/2020 06:48 INDICATION: Nephrolithiasis for planned lithotripsy. TECHNIQUE: A supine view of the abdomen on 2 radiographs was obtained. COMPARISON: 10/27/2020 FINDINGS: Left internal ureteral stent with loops formed over the expected location of the left renal pelvis an d the bladder. There are at least 5 stones measuring between 5-7 mm seen along the mid to distal aspe ct of the stent. 3 project over the mid left ureter projecting alongside the left sacral iliac joint and 2 project within the distal loop of the stent catheter within the bladder or at the ureterovesicu lar junction. A couple additional 3-4 mm stones in the mid and upper left kidney. Possible 1-2 mm sto ne at the right ureterovesicular junction. Normal bowel gas pattern. IMPRESSION: 1. Nephrolithiasis with several left ureteral stones along side an unchanged left internal ureteral s tent. Reviewed, dictated and finalized at location A. IMPRESSION: 1. Nephrolithiasis with several left ureteral stones along side an unchanged le ft internal ureteral stent.
[2020-11-17 06:58] VITALS: BP 120/57; PULSE 59; RESP 18; TEMP 36; O2SAT 100
--- NOTE | 2020-11-17 06:59 | WPDHPUPDATE1 ---
History and Physical Update Update Date/Time: 11/17/20 06:59 History and Physical has been reviewed, including an updated exam of the patient. There are NO changes in the patient's condition. Risks, benefits, and alternatives have been discussed and questions answered. Patient agrees to proceed with procedure.
[2020-11-17] MEDS: LACTATED RINGERS 1,000 ML 30 ML IV CONT (07:20)
[2020-11-17 07:24] LABS: Glucose Point of Care 133 mg/dl (65-105)
--- NOTE | 2020-11-17 07:44 | WPDANESEPPF ---
Anes - Initial Pre Proc Eval Procedure: Operation Date: 11/17/20 08:30 Proposed Procedures p Left Ureteral Extracorporeal Shock Wave Lithotripsy - Taye Brannon MD Date/Time: 11/17/20 07:44 Surgeon: Taye Brannon MD Pre Op Diagnosis: left ureteral stone Patient Data Age: 70 Gender: M Height: 1.83 m Weight: 79.3 kg Last Vital Signs Temp 36.0 C L 11/17/20 06:58 Pulse 59 L 11/17/20 06:58 Resp 18 11/17/20 06:58 BP 120/57 L 11/17/20 06:58 Pulse Ox 100 11/17/20 06:58 Allergies Allergy/AdvReac Type Severity Reaction Status Date / Time Penicillins Allergy Rash,SOB Verified 11/17/20 07:05 Home Medications Medication Instructions Recorded Confirmed Type albuterol sulfate [Proventil HFA] 2 puff INHALATION Q6HRT PRN #1 inh 08/17/20 11/17/20 Rx aspirin 81 mg PO QAM #30 tablet 08/17/20 11/17/20 Rx atorvastatin 40 mg PO HS #30 tablet 08/17/20 11/17/20 Rx finasteride [Proscar] 5 mg PO QAM #30 tablet 08/17/20 11/17/20 Rx losartan 12.5 mg PO DAILY #30 tablet 08/17/20 11/17/20 Rx metoprolol tartrate 25 mg PO Q12HR #60 tablet 08/17/20 11/17/20 Rx metformin 1,000 mg PO BID 09/14/20 11/17/20 History Laboratory Tests 11/17/20 07:18 POC Capillary Glucose 133 mg/dl H mg/dl (65-105) Patient hx anesthesia problems: none Family hx anesthesia problems: none PMFSH Past Medical History Medical History Chronic renal failure, stage 3 (moderate) COPD (chronic obstructive pulmonary disease) DM2 (diabetes mellitus, type 2) DVT (deep venous thrombosis) History of heart attack 07/2020 EF 35% Paroxysmal A-fib Psoriasis Tobacco abuse Surgical History Surgical History H/O craniotomy Subdural hematoma S/P arthroscopic surgery of right knee Family History Family History Mother Cerebrovascular accident Diabetes mellitus Father Natural with proved cause Social History Social History Social History: The patient is and has 4 biological children. The patient is a full code. His is the durable power workers compensation attorney for healthcare. 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 Patient smokes 1 and half packs of cigarettes a day. He denies any alcohol or illicit drugs. Smoking packs per day: 1 Smoking cigarettes per day: 20.0 Years smoked: 51 Smoking pack-years: 51.00 Smoking status: Current every day smoker Tobacco type: cigarettes Second hand tobacco smoke exposure: Yes Alcohol intake: current Drinks per week: 0 Substance use: never Living arrangements: with family Additional living arrangements comments: Gender identity (if verbalized by the patient): Male Spiritual care concerns: No Anes - Eval Final PreProcedure Day of Procedure 11/17/20 07:44 Patient weight: normal Heart: regular rate and rhythm Lungs: clear to auscultation Airway: Mallampati scale class III and special considerations poor dentition Neurological: alert and oriented Last oral intake: >/= 8 hours ASA classification: IV Emergent: no Anesthetic plan: proceed Anesthesia type and monitoring: general LMA and standard monitoring Informed Consent: The patient's anesthetic plan and its attendant risks and benefits were discussed with the patient/family/POA. Questions were solicited and answers provided to the satisfaction of the patient/family/POA.
[2020-11-17] MEDS: levoFLOXacin 500 MG/D5W 100 ML 500 MG/100 ML BAG 100 MG IVPB (08:16)
--- NOTE | 2020-11-17 08:38 | W.PM.PROC2 ---
Procedure Note - Detailed Date of Procedure 11/17/20 Pre-op Diagnosis Left ureteral stones Post-op Diagnosis same Procedure Performed Left ESWL Surgeon Taye Brannon MD Anesthesia general Indications Left renal stones Findings 3 stones over left sacrum Description of Procedure The patient was brought to the operative suite where he was placed in the supine position on the Dornier lithotripsy table. The focal point of the lithotripter was placed at 3 stones, each 5-6mm, over the left . A total of 3000 shocks (1000 shocks to each stone) were delivered at a power setting of 6. There appeared to be good fragmentation of the stone. The patient tolerated the procedure well and was taken to the recovery room in good condition. Estimated Blood Loss 0 Drains No Packing No Pathology none sent Complications No immediate complications Condition stable Disposition PACU
[2020-11-17 09:03] VITALS: BP 120/59; PULSE 58; RESP 18; TEMP 36; O2SAT 100
[2020-11-17 09:17] VITALS: BP 117/66; PULSE 63; RESP 14; O2SAT 100
[2020-11-17 09:30] VITALS: BP 133/68; PULSE 65; RESP 21; O2SAT 100
[2020-11-17 09:41] VITALS: BP 139/66; PULSE 60; RESP 20
[2020-11-17 10:10] VITALS: BP 150/66; PULSE 62; RESP 20
--- NOTE | 2020-11-17 10:35 | SUR.PHASEII ---
Patient agitated and requesting to leave without Sunita present to give ride home. Patient ready for discharge just awaiting for pickup. Left second voicemail with . Patient states there is no other number to reach her. Patient walking funes in outpatient but becoming increasing agitated at inability to reach . Automatic Lathe Tender Reina present and we have both explained that for safety reasons patient must wait in outpatient area and cannot leave to sit in waiting room.
--- NOTE | 2020-11-17 11:01 | SUR.PHASEII ---
is currently in [facility]. She has notified Grandson to come for pickup and he is estimated to arrive in twenty minutes. Patient still agitated, offered refreshments and currently sitting in hallway with aerial planting and cultivation manager Reina. Educated patient again on safety and hospital policy for surgery discharge
== END 2020-11-17 11:18 | disposition home or self-care (01) ==
PROVIDERS: Referring Provider Internal Medicine; Visit Provider Urology
PROC: (CPT 50590; principal; 2020-11-17 08:30)
DX: N20.1 Calculus of ureter (principal); I48.0 Paroxysmal atrial fibrillation; N18.30 Chronic kidney disease, stage 3 unspecified; E11.22 Type 2 diabetes mellitus with diabetic chronic kidney disease; J44.9 Chronic obstructive pulmonary disease, unspecified; I25.2 Old myocardial infarction; L40.9 Psoriasis, unspecified; Z86.718 Personal history of other venous thrombosis and embolism; Z79.51 Long term (current) use of inhaled steroids; Z79.82 Long term (current) use of aspirin; F17.210 Nicotine dependence, cigarettes, uncomplicated
CPT/HCPCS: 50590; 36415; 74018; 80048; 82948; 85610; 85730; 87086; J1956; J2250; J2405; J2704; J3010; J7120

== ENCOUNTER 2020-12-04 15:21 | Outpatient (CLI) | payer MEDICARE, SELFPAY ==
--- NOTE | ~2020-12-04 | XR_ITS ---
EXAMINATION: XR abdomen/kub 1V INDICATION: Left-sided kidney stone TECHNIQUE: Supine views of the abdomen were obtained on 2 radiographs. COMPARISON: 11/17/2020 FINDINGS: A left internal ureteral stent is in expected position. There appear to be persistent stone s adjacent to the stent near the ureterovesicular junction as well as in the distal ureter projecting over the sacrum. Stones of the left kidney measuring up to 3 mm are noted. Punctate right nephrolith iasis is suggested. The lung bases are clear. The bowel gas pattern is normal. There is moderate oste oarthritis of the hips. IMPRESSION: 1. Right internal ureteral stent in expected position with persistent stones adjacent to the distal s tent. 2. Nephrolithiasis. Reviewed, dictated and finalized at location B. IMPRESSION: 1. Right internal ureteral stent in expected position with persistent stones ad jacent to the distal stent. 2. Nephrolithiasis.
== END 2020-12-04 15:22 | disposition home or self-care (01) ==
LOC: ANHIMG 15:29
PROVIDERS: PCP Family Medicine; Visit Provider Nurse Practitioner Adult Health
DX: N20.0 Calculus of kidney (principal); Z96.0 Presence of urogenital implants
CPT/HCPCS: 74018

== ENCOUNTER 2020-12-15 02:30 | Day surgery (SDC) | payer MEDICARE, SELFPAY ==
[2020-12-15] VITALS (15 sets, daily range): BP systolic 117–147; BP diastolic 56–72; PULSE 56–91; RESP 10–24; TEMP 35.7–36; O2SAT 92–98; BMI 23.6
[2020-12-15 07:54] LABS: Basophils Absolute Auto 0.1 K/mm3 (0.0-0.1); Eosinophils Absolute Auto 0.3 K/mm3 (0-0.3); Hemoglobin 14.7 g/dL (14.0-18.0); Immature Granulocyte Absolute 0.03 K/mm3 (0.00-0.031); Immature Granulocyte Percent A 0.3 % (0-0.5); Lymphocytes Absolute Auto 1.86 K/mm3 (0.9-3.2); Lymphocytes Percent Auto 20.8 % (18.3-44.2); Mean Corpuscular HGB Conc 31.3 g/dl (32-36); Mean Corpuscular Hemoglobin 30.5 pg (26-34); Mean Corpuscular Volume 97.5 fl (80-100); Mean Platelet Volume 10.2 fl (7.4-10.4); Monocytes Absolute Auto 0.7 K/mm3 (0.1-0.6); Monocytes Percent Auto 7.3 % (2.6-8.5); Neutrophils Absolute Auto 6.1 K/mm3 (1.3-6.7); Neutrophils Percent Auto 67.6 % (45.5-73.1); Platelet Count Result 227 k/mm3 (150-375); Red Blood Count 4.82 M/mm3 (4.6-6.20); Red Cell Distribution Width 13.3 % (11.5-14.5)
[2020-12-15 08:00] LABS: Anion Gap 8 mmol/L (8-16); Blood Urea Nitrogen 23 mg/dL (9-20); Calcium 9.1 mg/dL (8.4-10.2); Carbon Dioxide 25 mmol/L (22-30); Chloride 105 mmol/L (98-107); Estimated Glomerular Filt Rate 35; Glucose 128 mg/dL (65-110); Potassium 4.5 mmol/L (3.4-5.0); Sodium 138 mmol/L (137-145)
--- NOTE | 2020-12-15 08:50 | WPDMODSED ---
Moderate Sedation Note-Pt Data Patient Data Diagnosis: Intermittent, exertional chest pain left ventricular systolic dysfunction paroxysmal atrial fibrillation, currently in sinus rhythm chronic kidney disease with recent nephrolithiasis Present Complaint: occasional exertional chest pain Procedure to be performed/Plan: coronary angiography Allergies Allergy/AdvReac Type Severity Reaction Status Date / Time Penicillins Allergy Rash,SOB Verified 12/15/20 08:07 Home Medications Medication Instructions Recorded Confirmed Type albuterol sulfate [Proventil HFA] 2 puff INHALATION Q6HRT PRN #1 inh 08/17/20 12/15/20 Rx aspirin 81 mg PO QAM #30 tablet 08/17/20 12/15/20 Rx atorvastatin 40 mg PO HS #30 tablet 08/17/20 12/15/20 Rx losartan 12.5 mg PO DAILY #30 tablet 08/17/20 12/15/20 Rx metoprolol tartrate 25 mg PO Q12HR #60 tablet 08/17/20 12/15/20 Rx metformin 1,000 mg PO BID 09/14/20 12/15/20 History hydrocodone-acetaminophen 1 - 2 tablet PO Q6H PRN #20 tablet 11/17/20 12/15/20 Rx amiodarone 200 mg PO DAILY 12/15/20 12/15/20 History Current Medications: Active Medications Sodium Chloride (Normal Saline Iv) 500 mls @ 100 mls/hr IV CONT .Q5H ANGELINE Sedation/Anesthesia: No previous sedation/anesthesia problems (including family history). [facility] Past Medical History Medical History Chronic renal failure, stage 3 (moderate) COPD (chronic obstructive pulmonary disease) DM2 (diabetes mellitus, type 2) DVT (deep venous thrombosis) History of heart attack 07/2020 EF 35% Paroxysmal A-fib Psoriasis Tobacco abuse Surgical History Surgical History H/O craniotomy Subdural hematoma S/P arthroscopic surgery of right knee Family History Family History Mother Cerebrovascular accident Diabetes mellitus Father Natural with proved cause Social History Social History Social History: The patient is and has 4 biological children. The patient is a full code. His is the durable power criminal defense attorney for healthcare. 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 Patient smokes 1 and half packs of cigarettes a day. He denies any alcohol or illicit drugs. Smoking packs per day: 1 Smoking cigarettes per day: 20.0 Years smoked: 51 Smoking pack-years: 51.00 Smoking status: Current every day smoker Tobacco type: cigarettes Second hand tobacco smoke exposure: Yes Alcohol intake: current Drinks per week: 0 Substance use: never Additional living arrangements comments: Gender identity (if verbalized by the patient): Male Spiritual care concerns: No Mod Sed Physical Exam Physical Exam Pre Procedural Exam: Normal: Appearance, Throat, Airway, Lungs, Heart Size, Heart Rate, Heart Rhythm, Neuro Exam and Extremities Hours since solid foods: 12 Hours since liquid intake: 12 Mallampati Classification: class II Internal Medicine - PN: Obj Da Vital Signs Vital Signs: Vital Signs - 24 hr 12/15/20 08:13 Temperature 35.7 C L Pulse Rate 62 Respiratory Rate 24 H Blood Pressure 140/70 Pulse Oximetry 98 Meds/Results Medications: Active Medications Generic Name Dose Route Start Last Admin Trade Name Freq PRN Reason Stop Dose Admin Sodium Chloride 500 mls @ 100 mls/hr 12/15/20 07:25 Normal Saline Iv IV CONT .Q5H ANGELINE Labs CBC & Chem 7: 12/15/20 07:35 12/15/20 07:35 Labs: Laboratory Results - last 24 hr 12/15/20 12/15/20 07:35 07:35 WBC 9.0 RBC 4.82 Hgb 14.7 Hct 47.0 MCV 97.5 MCH 30.5 MCHC 31.3 L RDW 13.3 Plt Count 227 MPV 10.2 Immature Gran % (Auto) 0.3 Neut % (Auto) 67.6 Lymph % (Auto) 20.8 [place] % (Auto) 7.3 Eos % (Auto) 3.0 Baso % (Auto) 1.0 Lymph # (Auto) 1.86 [place] # (Aut
--- NOTE | 2020-12-15 09:24 | WPDCARDPROC ---
Cardiac Cath Procedure Note Date of procedure:: 12/15/20 Performing physician:: Jose A Gray MD Indication:: Exertional chest pain left ventricular systolic dysfunction atrial fibrillation, currently in sinus rhythm chronic kidney disease with nephrolithiasis Brief clinical history:: this is a 70-year-old man seen several months ago in the hospital because of a non ST elevation SD. He was managed medically because of significant chronic kidney disease is creatinine was 3.9 at that time. Following treatment of nephrolithiasis this is improved creatinine has now stabilized at 1.9 and he is continued to be symptomatic with exertional chest pain and so angiography has been scheduled for today as an outpatient. Systemic anticoagulation has been stopped for a couple of days before this procedure. Procedure Procedure performed:: Coronary angiography left ventriculography Sedation/Medication given:: fentanyl 50 mg Versed 2 mg case start time 9:04 a.m. case end time 9:19 a.m. sedation provided by Alfonzo Garcia RN, Access site:: right femoral artery Estimated blood loss:: 10-15 cc Procedure note:: patient was brought to the cardiac catheterization lab in the postabsorptive state the right femoral triangle was prepared in the usual fashion. 1% lidocaine was infiltrated for local anesthesia. The patient then had the femoral artery punctured and a 5 Iraqi vascular sheath placed using the modified Seldinger technique. The patient then underwent left heart catheterization. I used a 5 Iraqi FL4 catheter to engage and inject the left coronary artery in multiple projections. After this the right coronary artery was engaged and injected using a 5 Iraqi JR4 catheter. Lastly a 5 Iraqi angled pigtail catheter was used to measure left-sided hemodynamics and injected LV g in the STOLL projection. The cine angiograms were then reviewed and the case was terminated. He was taken to the holding area for sheath removal. Findings:: Hemodynamics: Central aortic pressure is 136 over 50 left ventricle 136 over to end-diastolic pressure 24 there is no gradient on pullback across the aortic valve. Left ventricle: The LV is significantly dilated there is severe hypo contractility in all segments. The infero posterior segment is totally akinetic the distal anterior wall and apex exhibits the best contractility the remainder of the anterior wall is severely hypodynamic. Global ejection fraction I would visually estimate to be in the vicinity of 15%. The left main coronary artery is very short in length but nicely patent the left anterior descending is a diffusely diseased artery there is a proximal 80-90% stenosis in the LAD in the midportion of the vessel there is diffuse tubular narrowing of about 80% the remainder of the LAD is free of high-grade lesions but is small to medium in caliber. The circumflex is a small diffusely diseased artery. There is a long area of 95% stenosis in the proximal aspect of the 1st OM branch which takes off rather high in the circumflex the remainder of the circumflex is small and diffusely diseased but without discrete high-grade lesions. The right coronary artery is 100% occluded in its proximal aspect. There is left to right collateral filling from the LAD through the septals to the distal RCA. Conclusion:: 1. Severe three-vessel coronary artery disease involving high-grade proximal and mid stenosis of the left anterior descending, high-grade stenosis of the high 1st OM branch of the circumflex and 100% occlusion of the dominant RCA which is receiving [id number] collateral filling 2. severe left ventricular systolic dysfunction with infero posterior akinesia and very low ejection fraction 3. patient will be referred year for high risk CABG or high-risk PCI of the LAD. Jose A Gray MD [facility]
--- NOTE | 2020-12-15 15:33 | SUR.PHASEII ---
IV d/c'd from left forearm with catheter intact. No redness or swelling at site. Right groin with tegaderm drsg intact. No signs of bleeding or hematoma. Discharge instructions reviewed with patient and with stated understanding. Pt needed frequent reinforcement on the importance of following post procedure instructions. Pt discharged via wheelchair to personal vehicle with driving.
== END 2020-12-15 15:15 | disposition home or self-care (01) ==
PROVIDERS: Visit Provider Specialist
PROC: 4A023N7 Measurement of Cardiac Sampling and Pressure, Left Heart, Percutaneous Approach (ICD-10-PCS; CPT 93452; principal; 2020-12-15 08:30)
DX: I25.10 Atherosclerotic heart disease of native coronary artery without angina pectoris (principal); R07.89 Other chest pain; I13.0 Hypertensive heart and chronic kidney disease with heart failure and stage 1 through stage 4 chronic kidney disease, or unspecified chronic kidney disease; I50.20 Unspecified systolic (congestive) heart failure; N18.30 Chronic kidney disease, stage 3 unspecified; E11.22 Type 2 diabetes mellitus with diabetic chronic kidney disease; I48.0 Paroxysmal atrial fibrillation; L40.9 Psoriasis, unspecified; F17.210 Nicotine dependence, cigarettes, uncomplicated; Z79.51 Long term (current) use of inhaled steroids; Z79.82 Long term (current) use of aspirin; Z79.84 Long term (current) use of oral hypoglycemic drugs
CPT/HCPCS: 36415; 80048; 85025; 93458; C1887; C1894; J0461; J1644; J2250; J3010; J7040

== ENCOUNTER 2021-01-05 10:56 | Outpatient (CLI) | payer MEDICARE, SELFPAY ==
[2021-01-05 11:27] LABS: Basophils Absolute Auto 0.1 K/mm3 (0.0-0.1); Basophils Percent Auto 1.1 % (0.2-1.2); Eosinophils Absolute Auto 0.5 K/mm3 (0-0.3); Hematocrit 48.1 % (42.0-52.0); Immature Granulocyte Absolute 0.04 K/mm3 (0.00-0.031); Immature Granulocyte Percent A 0.4 % (0-0.5); Lymphocytes Absolute Auto 1.43 K/mm3 (0.9-3.2); Lymphocytes Percent Auto 15.6 % (18.3-44.2); Mean Corpuscular HGB Conc 31.2 g/dl (32-36); Mean Corpuscular Hemoglobin 30.7 pg (26-34); Mean Corpuscular Volume 98.4 fl (80-100); Monocytes Absolute Auto 0.5 K/mm3 (0.1-0.6); Monocytes Percent Auto 5.5 % (2.6-8.5); Neutrophils Absolute Auto 6.7 K/mm3 (1.3-6.7); Neutrophils Percent Auto 72.4 % (45.5-73.1); Platelet Count Result 229 k/mm3 (150-375); Red Blood Count 4.89 M/mm3 (4.6-6.20); Red Cell Distribution Width 14.1 % (11.5-14.5); White Blood Count 9.2 K/mm3 (4.5-10.0)
[2021-01-05 11:39] LABS: Anion Gap 8 mmol/L (8-16); Blood Urea Nitrogen 23 mg/dL (9-20); Calcium 9.3 mg/dL (8.4-10.2); Carbon Dioxide 25 mmol/L (22-30); Chloride 107 mmol/L (98-107); Estimated Glomerular Filt Rate 28; Glucose 130 mg/dL (65-110); Potassium 5.3 mmol/L (3.4-5.0); Sodium 140 mmol/L (137-145)
== END 2021-01-05 10:57 | disposition home or self-care (01) ==
LOC: ANHLAB 11:00
PROVIDERS: Visit Provider Internal Medicine
DX: I21.4 Non-ST elevation (NSTEMI) myocardial infarction (principal)
CPT/HCPCS: 36415; 80048; 85025

== ENCOUNTER 2021-01-30 10:57 | Outpatient (CLI) | payer MEDICARE, SELFPAY ==
[2021-01-30 12:42] LABS: Potassium 5.8 mmol/L (3.4-5.0)
[2021-01-30 13:20] LABS: Anion Gap 10 mmol/L (8-16); Blood Urea Nitrogen 31 mg/dL (9-20); Calcium 9.4 mg/dL (8.4-10.2); Carbon Dioxide 24 mmol/L (22-30); Chloride 105 mmol/L (98-107); Estimated Glomerular Filt Rate 23; Glucose 105 mg/dL (65-110); Sodium 139 mmol/L (137-145)
== END 2021-01-30 10:58 | disposition home or self-care (01) ==
PROVIDERS: Visit Provider Specialist
DX: N18.30 Chronic kidney disease, stage 3 unspecified (principal)
CPT/HCPCS: 36415; 80048

== ENCOUNTER 2021-02-13 13:37 | Emergency (ER) | payer MEDICARE, SELFPAY ==
[2021-02-13] VITALS (31 sets, daily range): BP systolic 132–188; BP diastolic 76–113; PULSE 78–113; RESP 14–32; TEMP 36.6–36.8; O2SAT 83–100
--- NOTE | ~2021-02-13 | XR_ITS ---
EXAMINATION: XR chest 1V portable INDICATION: New shortness of breath since prior chest radiograph TECHNIQUE: Portable AP chest at 1640 hours COMPARISON: 1403 hours FINDINGS: Diffuse opacities persist throughout all lung zones with slight interval worsening. There i s no pleural effusion or pneumothorax. The cardiomediastinal silhouette is stable. Osteoarthritis is noted in the shoulders. IMPRESSION: 1. Diffuse lung disease with interval worsening which could reflect worsening pulmonary edema and/or pneumonia. Reviewed, dictated and finalized at location A. IMPRESSION: 1. Diffuse lung disease with interval worsening which could reflect worsening p ulmonary edema and/or pneumonia.
--- NOTE | ~2021-02-13 | XR_ITS ---
XR chest 2V DATE: 02/13/2021 14:04 INDICATION: Left-sided chest pain since last night. History of myocardial infarction. TECHNIQUE: PA and lateral views COMPARISON: 08/14/2020 portable AP chest FINDINGS: Heart size is within normal range. There is mild pulmonary vascular congestion. There are bilateral Matthieu B lines, pulmonary interstitial prominence, consistent with pulmonary interstitial edema versus pulmonary interstitial fibrosis. Aortic calcification. No hilar or mediastinal enlargement. No pneumothorax or significant pleural e ffusion. IMPRESSION: Mild subpleural and pulmonary interstitial edema is suggested by prominence of the fissur es and pulmonary interstitium including Matthieu B-lines as well as mild pulmonary vascular prominence. Differential diagnosis includes pulmonary interstitial fibrosis. Heart size is within normal range. Aortic calcification Reviewed, dictated and finalized at location B. IMPRESSION: Mild subpleural and pulmonary interstitial edema is suggested by pr ominence of the fissures and pulmonary interstitium including Matthieu B-lines as well as mild pulmonary vascular prominence. Differential diagnosis includes pu lmonary interstitial fibrosis. Heart size is within normal range. Aortic calcification
--- NOTE | 2021-02-13 13:40 | ECG_ITS ---
Measurements Intervals [place] Rate: 93 P: 14 NV: 148 QRS: 116 QRSD: 157 T: -56 QT: 384 QTc: 480 Interpretive Statements SINUS RHYTHM RIGHT BUNDLE BRANCH BLOCK LEFT POSTERIOR FASCICULAR BLOCK ANTERIOR INFARCT, AGE INDETERMINATE ST-T WAVE ABNORMALITY IN INFERIOR LEADS- CONSIDER ISCHEMIA ABNORMAL ECG Electronically Signed On 02-13-2021 14:54:08 CDT by Calixto Santa D.O.
[2021-02-13 14:02] LABS: Basophils Absolute Auto 0.1 K/mm3 (0.0-0.1); Basophils Percent Auto 0.4 % (0.2-1.2); Eosinophils Percent Auto 0.2 % (0-4.4); Hematocrit 45.5 % (42.0-52.0); Hemoglobin 14.7 g/dL (14.0-18.0); Immature Granulocyte Absolute 0.05 K/mm3 (0.00-0.031); Immature Granulocyte Percent A 0.4 % (0-0.5); Lymphocytes Absolute Auto 0.97 K/mm3 (0.9-3.2); Lymphocytes Percent Auto 8.2 % (18.3-44.2); Mean Corpuscular HGB Conc 32.3 g/dl (32-36); Mean Corpuscular Hemoglobin 31.7 pg (26-34); Mean Corpuscular Volume 98.3 fl (80-100); Monocytes Absolute Auto 0.7 K/mm3 (0.1-0.6); Neutrophils Absolute Auto 10.1 K/mm3 (1.3-6.7); Neutrophils Percent Auto 84.8 % (45.5-73.1); Platelet Count Result 218 k/mm3 (150-375); Red Blood Count 4.63 M/mm3 (4.6-6.20); Red Cell Distribution Width 15.4 % (11.5-14.5); White Blood Count 11.9 K/mm3 (4.5-10.0)
[2021-02-13 14:13] LABS: Anion Gap 12 mmol/L (8-16); Blood Urea Nitrogen 25 mg/dL (9-20); Calcium 9.1 mg/dL (8.4-10.2); Carbon Dioxide 24 mmol/L (22-30); Chloride 102 mmol/L (98-107); Estimated CRCL calculation 32 ml/min; Estimated Glomerular Filt Rate 31; Glucose 175 mg/dL (65-110); Potassium 5.4 mmol/L (3.4-5.0); Prothrombin Time 13.3 Seconds (11.1-14.7); Sodium 138 mmol/L (137-145)
[2021-02-13 14:14] LABS: Partial Thromboplastin Time 30.3 SECONDS (22.3-36.8)
--- NOTE | 2021-02-13 14:50 | ED.CHESTPAIN ---
HPI - Chest Pain General Chief Complaint: Chest Pain Stated Complaint: CP yesterday increased SOB Time Seen by Provider: 02/13/21 14:37 Source: patient Mode of arrival: ambulatory Limitations: no limitations History of Present Illness HPI narrative: Patient is a 70-year-old male with a history of type 2 diabetes, hypertension, significant coronary artery disease, atrial fibrillation, who presents for evaluation of chest pain that is resolved at the time of assessment. Chest pain began overnight, described as a heavy pressure over his chest, described as severe pain. Patient states it was worse pain than when he had his initial heart attack. Radiation of the pain to the left shoulder. Patient with associated shortness of breath, no diaphoresis, patient with one episode of nausea and vomiting with the pain last night. Patient's stated that she was worried he was having a heart attack, but patient refused to come to the hospital at that point in time. He arrived today pain-free. He does report shortness of breath at rest. No lower extremity edema. Related Data Home Medications Medication Instructions Recorded Confirmed metformin 1,000 mg PO BID 09/14/20 12/15/20 amiodarone 200 mg PO DAILY 12/15/20 12/15/20 Allergies Allergy/AdvReac Type Severity Reaction Status Date / Time Penicillins Allergy Rash,SOB Verified 12/15/20 08:07 Review of Systems Review of Systems: CONSTITUTIONAL: Denies fever, chills, or sweats. EYES: Denies visual changes, redness, or discharge. ENT: Denies rhinorrhea, congestion, sore throat, or otalgia. CARDIOVASCULAR: Denies current chest pain, palpitations, or edema. RESPIRATORY: Denies cough, reports mild dyspnea GASTROINTESTINAL: Denies abdominal pain, nausea, vomiting, or diarrhea. GENITOURINARY: Denies dysuria or hematuria. SKIN: Denies rash or itching. MUSCULOSKELETAL: Denies back pain, joint pain, or myalgia. NEUROLOGIC: Denies headache, numbness, or weakness. [facility] Past Medical History Medical History Chronic renal failure, stage 3 (moderate) COPD (chronic obstructive pulmonary disease) DM2 (diabetes mellitus, type 2) DVT (deep venous thrombosis) History of heart attack 07/2020 EF 35% Paroxysmal A-fib Psoriasis Tobacco abuse Surgical History Surgical History H/O craniotomy Subdural hematoma S/P arthroscopic surgery of right knee Family History Family History Mother Cerebrovascular accident Diabetes mellitus Father Natural with proved cause Social History Social History Social History: The patient is and has 4 biological children. The patient is a full code. His is the durable power senior trial attorney for healthcare. 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 Patient smokes 1 and half packs of cigarettes a day. He denies any alcohol or illicit drugs. Smoking packs per day: 1 Smoking cigarettes per day: 20.0 Years smoked: 51 Smoking pack-years: 51.00 Smoking status: Current every day smoker Tobacco type: cigarettes Second hand tobacco smoke exposure: Yes Alcohol intake: current Drinks per week: 0 Substance use: never Additional living arrangements comments: Gender identity (if verbalized by the patient): Male Sexual Orientation (if Verbalized by the Patient): Straight or Heterosexual Spiritual care concerns: No Exam Narrative: GENERAL: Awake, alert, conversant HEAD: Normocephalic, atraumatic. EYES: PERRLA and EOMI. ENT: Nares clear, no rhinorrhea or epistaxis. Mucous membranes moist. NECK: Supple. CHEST: No respiratory distress, breathing even and non labored HEART: Borderline tachycardic rate, sinus rhythm ABDOMEN:Non distended, non tender EXTREMITIES: Normal range of motion. No edema. SKIN: Wa
--- NOTE | 2021-02-13 14:57 | PC.NURSE ---
This nursed asked the patient to put his mask on. Patient put mask on and pulled it out under his nose stating that he can not breathe and that he will breathe in too much carbon dioxide. This nurse educated the patient that his oxygen saturation were in the 90s and that his oxygen will be okay with the mask up. Patient refused stating that he has rights too and that we are not thinking about the patients. [employer] product consultant notified.
[2021-02-13 15:13] LABS: Basophils Absolute Auto 0.1 K/mm3 (0.0-0.1); Basophils Percent Auto 0.5 % (0.2-1.2); Eosinophils Percent Auto 0.3 % (0-4.4); Hematocrit 47.3 % (42.0-52.0); Hemoglobin 15.3 g/dL (14.0-18.0); Immature Granulocyte Absolute 0.03 K/mm3 (0.00-0.031); Immature Granulocyte Percent A 0.3 % (0-0.5); Lymphocytes Absolute Auto 0.99 K/mm3 (0.9-3.2); Lymphocytes Percent Auto 9.9 % (18.3-44.2); Mean Corpuscular HGB Conc 32.3 g/dl (32-36); Mean Corpuscular Hemoglobin 31.5 pg (26-34); Mean Corpuscular Volume 97.3 fl (80-100); Monocytes Absolute Auto 0.6 K/mm3 (0.1-0.6); Monocytes Percent Auto 6.3 % (2.6-8.5); Neutrophils Absolute Auto 8.3 K/mm3 (1.3-6.7); Neutrophils Percent Auto 82.7 % (45.5-73.1); Platelet Count Result 224 k/mm3 (150-375); Red Blood Count 4.86 M/mm3 (4.6-6.20); Red Cell Distribution Width 15.3 % (11.5-14.5)
[2021-02-13 15:28] LABS: Partial Thromboplastin Time 30.2 SECONDS (22.3-36.8); Prothrombin Time 13.3 Seconds (11.1-14.7)
[2021-02-13] MEDS: ASPIRIN 81 MG CHEWABLE TABLET 324 MG PO (15:28)
[2021-02-13] MEDS: HEPARIN SODIUM 5,000 UNITS/ML VIAL 4000 UNITS IV PUSH (15:43)
[2021-02-13 15:44] LABS: NT Pro B Type Natriuretic Pept 20400 pg/mL (5-100)
[2021-02-13] MEDS: HEPARIN SOD/D5W 100 UNITS/ML 25,000 UNITS/250 ML BAG 9 UNITS IV CONT (15:44)
--- NOTE | 2021-02-13 16:28 | ECG_ITS ---
Measurements Intervals [place] Rate: 90 P: 20 VA: 156 QRS: 118 QRSD: 172 T: -54 QT: 389 QTc: 477 Interpretive Statements SINUS RHYTHM RIGHT AXIS DEVIATION INTRAVENTRICULAR CONDUCTION DELAY ANTERIOR INFARCT, AGE INDETERMINATE HIGH LATERAL INFARCT, AGE INDETERMINATE ST-T WAVE ABNORMALITY IN INFERIOR LEADS- CONSIDER ISCHEMIA BASELINE ARTIFACT- II, III, AVR, AVF, V3-V6 ABNORMAL ECG Electronically Signed On 02-13-2021 20:19:12 CDT by Calixto Santa D.O.
[2021-02-13] MEDS: FUROSEMIDE INJ 40 MG/4 ML VIAL 20 MG IV PUSH (17:10)
[2021-02-13 17:21] LABS: Partial Thromboplastin Time 124.4 SECONDS (22.3-36.8)
[2021-02-13] MEDS: FUROSEMIDE INJ 40 MG/4 ML VIAL IV PUSH (17:43)
[2021-02-13] MEDS: NITROGLYCERIN SL 0.4 MG TABLET SUBLINGUAL (17:50)
[2021-02-13 18:33] LABS: Alveolar/Arterial O2 Gradient 156.7 mmHg; Base Excess ABG -1.5 mEq/l (+/-2.0); Carboxyhemoglobin 2.6 % THb (0-2.0); Fractional Inspired Oxygen 40 %; HCO3 ABG 23.2 mEq/l (22.0-26.0); Methemoglobin ABG 0.2 %THb (0-1.5); Oxygen Content ABG 21.2 %vol (16.0-22.0); Oxygen Saturation ABG 96.2 % (95.0-100.0); Oxyhemoglobin 92.9 % THb (90.0-100.0); PCO2 ABG 39.3 mmHg (35.0-45.0); PO2 ABG 83.3 mmHg (80.0-100.0); PO2 FiO2 Ratio Arterial Blood 2.08 %; Reduced Hemoglobin 4.3 %THb (0-5.0); Total Hemoglobin 16.2 g/dL (12.0-18.0); pH ABG 7.389 (7.350-7.450)
[2021-02-13 18:34] LABS: Device NON-INVASIVE VENT; Modified Allen's Test Pass; Site Drawn RIGHT RADIAL
[2021-02-13 18:35] LABS: Non-Invasive Expiratory Pressure 6 CMH2O; Non-Invasive Inspiratory Pressure 12 CMH2O; Non-Invasive Vent Rate 12 /MIN
[2021-02-13] MEDS: NITROGLYCERIN/D5W 200 MCG/ML 50 MG/250 ML BTL IV CONT (18:38)
--- NOTE | 2021-02-13 19:40 | PM.EVENT ---
Event Note Event Note Event Note: I spoke with Dr. Gray who agreed that the patient would need to be transferred to another facility where he can receive an open heart surgery. We do not have services to offer the patient at this facility. I also spoke with my supervising physician Dr. Louise who recommended that I called Dr. Garza for further recommendation. The patient's blood pressure and heart rate are stable at this time the patient is on a BiPAP. I spoke with Dr. Garza and explain the situation to him and he recommended that the patient be transferred and that we declined admission into this hospital. The patient is requiring higher level of care. Therefore we will not be accepting this patient to this facility as a hospitalist group.
--- NOTE | 2021-02-13 21:00 | PC.NURSE ---
[facility] transfer center is requesting a rapid covid test for a possible bed placement there.
--- NOTE | 2021-02-13 21:25 | PC.NURSE ---
Talked to Eliot in lab at 21:25 to add on PTT-said he would call back if they could not add it on.
[2021-02-13 21:43] LABS: EDCOVIDSCREEN Negative (Negative)
[2021-02-13 22:42] LABS: Partial Thromboplastin Time 50.7 SECONDS (22.3-36.8)
== END 2021-02-13 23:13 | disposition short-term general hospital (02) ==
PROVIDERS: Emergency Medicine; Emergency Provider Emergency Medicine
DX: I21.4 Non-ST elevation (NSTEMI) myocardial infarction (principal); R06.00 Dyspnea, unspecified; Z20.822 Contact with and (suspected) exposure to COVID-19; I25.10 Atherosclerotic heart disease of native coronary artery without angina pectoris; I48.0 Paroxysmal atrial fibrillation; E11.22 Type 2 diabetes mellitus with diabetic chronic kidney disease; I12.9 Hypertensive chronic kidney disease with stage 1 through stage 4 chronic kidney disease, or unspecified chronic kidney disease; N18.30 Chronic kidney disease, stage 3 unspecified; Z86.718 Personal history of other venous thrombosis and embolism; J44.9 Chronic obstructive pulmonary disease, unspecified; F17.210 Nicotine dependence, cigarettes, uncomplicated; Z79.84 Long term (current) use of oral hypoglycemic drugs; I45.9 Conduction disorder, unspecified; R94.31 Abnormal electrocardiogram [ECG] [EKG]
CPT/HCPCS: 36415; 36600; 71045; 71046; 80048; 82375; 82805; 83050; 83880; 84484; 85025; 85610; 85730; 87426; 93005; 94002; 96365; 96366; 96368; 96375; 96376; 99291; A9270; C9803; J1644; J1940

== ENCOUNTER 2021-04-07 09:29 | Inpatient (IN) | payer MEDICARE, SELFPAY ==
[2021-04-07] VITALS (27 sets, daily range): BP systolic 97–124; BP diastolic 42–88; PULSE 75–90; RESP 12–26; TEMP 36.1–36.9; O2SAT 92–100; BMI 22.1
--- NOTE | ~2021-04-07 | XR_ITS ---
EXAMINATION: XR chest 1V portable EXAM DATE: 04/07/2021 10:16 INDICATION: Weakness, bilateral lower extremity edema. History COPD, diabetes, [place]. TECHNIQUE: Portable AP frontal chest x-ray was obtained. Comparison is made to prior examination from 02/13/2021. FINDINGS: Cardiomediastinal silhouette is normal for AP technique. Mildly indistinct basilar reticula tion, could be mild pulmonary edema, but appearance is improved compared to previous examination. No confluent consolidation, pneumothorax or pleural effusion suspected. There are mild bony degenerative changes. IMPRESSION: Possible mild pulmonary edema. Reviewed, dictated and finalized at location A. CTOR OF TECHNOLOGY
--- NOTE | ~2021-04-07 | XR_ITS ---
SMALL BOWEL SERIES ONLY INDICATION: GI bleeding TECHNIQUE: Serial plain films and fluoroscopic spot films are performed following oral demonstration of thin barium. COMPARISON: KUB dated 12/04/2020 FINDINGS: Barium was followed sequentially through the small bowel. The mucosal pattern is unremarka ble. No evidence for stricture, polyp, diverticula or obstruction of flow of contrast. Transit time is normal. IMPRESSION: 1: Normal small bowel series. Reviewed, dictated and finalized at location A. ORATE EVENTS DIRECTOR
--- NOTE | ~2021-04-07 | US_ITS ---
EXAMINATION: US art doppler w johnny DE PAZ EXAM DATE: 04/11/2021 14:14 INDICATION: Purple toes. TECHNIQUE: Segmental pressures and plethysmographic and Doppler waveforms of the brachial and lower e xtremity arteries were obtained. There is no prior study for comparison. FINDINGS: Right and left brachial artery pressures of 1.03 mm Hg and 1.02 mm Hg, respectively, are concordant ( normal difference <= 30 mmHg). The right and left thigh-brachial pressure indices are 1.14, 0.78, re spectively (normal > 1.2). RIGHT LEG: The ankle-brachial index (PHUC) is 0.51 (normal >= 0.9-1). The great toe-brachial index (TBI) is no signal visualized (normal >= 0.65). The lower extremity ratios, segmental pressure gradients as follows; Proximal superficial femoral artery:- 1.14 (117 mmHg). Distal superficial femoral artery: ----- 0.86 (89 mmHg). Popliteal: 0.56 (58 mmHg). Dorsalis pedis: 0.49 (50 mmHg). Posterior tibial: 0.51 (53 mmHg). (Normal gradients <= 20-30 mmHg between adjacent levels on the same leg or the same levels on the two legs). Arterial waveforms are diminished and monophasic. LEFT LEG: The ankle-brachial index (PHUC) is 0.46 (normal >= 0.9-1). The great toe-brachial index (TBI) is no signal visualized (normal >= 0.65). The lower extremity ratios, segmental pressure gradients as follows; Proximal superficial femoral artery:- 0.78 (80 mmHg). Distal superficial femoral artery: ----- 0.79 (81 mmHg). Popliteal: 0.71 (73 mmHg). Dorsalis pedis: 0.46 (47 mmHg). Posterior tibial: 0.46 (47 mmHg). (Normal gradients <= 20-30 mmHg between adjacent levels on the same leg or the same levels on the two legs). Arterial waveforms are diminished, monophasic. IMPRESSION: 1. Right ankle-brachial index 0.51, moderately decreased. 2. Left ankle-brachial index 0.46, moderately decreased. 3. Diminished left indices proximally could indicate inflow stenosis, iliac disease. 4. Diminished monophasic waveforms. No toe Doppler signal visualized bilaterally. Reviewed, dictated and finalized at location A. STANT SURVEYOR IMPRESSION: 1. Right ankle-brachial index 0.51, moderately decreased. 2. Left ankle-brachial index 0.46, moderately decreased. 3. Diminished left indices proximally could indicate inflow stenosis, iliac dis ease. 4. Diminished monophasic waveforms. No toe Doppler signal visualized bilaterall y.
--- NOTE | 2021-04-07 09:34 | ECG_ITS ---
Measurements Intervals Mckenna Rate: 81 P: 66 AR: 174 QRS: 116 QRSD: 162 T: -51 QT: 427 QTc: 497 Interpretive Statements SINUS RHYTHM RIGHT BUNDLE BRANCH BLOCK LEFT POSTERIOR FASCICULAR BLOCK MINIMAL Q WAVES- ANTERIOR LEADS ST-T WAVE ABNORMALITY IN INFERIOR LEADS- CONSIDER ISCHEMIA BASELINE ARTIFACT- V1-V2 ABNORMAL ECG Electronically Signed On 04-07-2021 11:15:59 CONVEYOR INSTALLER by Calixto Santa D.O.
--- NOTE | 2021-04-07 10:10 | ED.GENADULT ---
HPI - General Adult General Chief complaint: Weakness Stated complaint: leg pains Time Seen by Provider: 04/07/21 09:59 Source: patient Mode of arrival: EMS Limitations: no limitations History of Present Illness HPI narrative: Patient is a 71-year-old male brought in by EMS complaining of bilateral lower extremity pain, swelling and weakness that is been ongoing for the past 5 years but today he fell due to the weakness. Patient states that has been ongoing for a long time and no one can tell him why his legs are weak. Patient has a history of PVD. Patient also states that he is short of breath on exertion but that is nothing new, states that he is always short of breath. Patient denies any chest pain, abdominal pain, nausea, vomiting, diaphoresis, fever or chills. Patient states that he recently had blood transfusion this past week because of hemoglobin being low. Patient states that he has had black stools for the past 2 to 3 weeks. Patient denies any abdominal pain. Related Data Home Medications Medication Instructions Recorded Confirmed metformin 1,000 mg PO BID 09/14/20 12/15/20 amiodarone 200 mg PO DAILY 12/15/20 12/15/20 atorvastatin 80 mg PO HS 04/07/21 ciprofloxacin HCl 04/07/21 glipizide 5 mg PO BID 04/07/21 metoprolol tartrate 50 mg PO Q12HR 04/07/21 rivaroxaban [Xarelto] 10 mg PO DAILY 04/07/21 sacubitril-valsartan [Entresto] 1 tablet PO BID 04/07/21 tamsulosin mg PO 04/07/21 ticagrelor [Brilinta] 90 mg PO Q12H 04/07/21 Allergies Allergy/AdvReac Type Severity Reaction Status Date / Time Penicillins Allergy Rash,SOB Verified 04/07/21 09:52 Review of Systems Review of Systems: All systems reviewed & are unremarkable except as noted in HPI and below Constitutional: Constitutional: Denies body ache(s), Denies chills, Denies excessive sweating, Denies fatigue, Denies fever(s), Denies headache(s), Denies lethargy, Denies malaise and Denies weight loss Eyes: Eyes: Denies blurry vision, Denies change in vision and Denies loss of vision ENT: Denies dizziness, Denies ear discharge, Denies headache(s), Denies lip swelling, Denies epistaxis, Denies nasal congestion, Denies neck pain, Denies throat swelling and Denies tongue swelling Cardiovascular: Cardiovascular: Denies chest pain, Denies chest pain at rest, Denies chest pain with activity, Denies diaphoresis, Denies rapid heart rate, Denies edema, Denies irregular heart rhythm, Denies lightheadedness and Denies palpitations Respiratory: Respiratory: Denies chest congestion, Denies cough and Denies hemoptysis Gastrointestinal: Gastrointestinal: Denies abdominal pain, Denies melena, Denies hematochezia, Denies diarrhea, Denies nausea, Denies vomiting and Denies hematemesis Musculoskeletal: Musculoskeletal: Denies abnormal gait, Denies deformity, Denies joint swelling, Denies limited range of motion, Denies neck pain and Denies numbness Neurologic: Denies Abnormal speech present, Denies abnormal gait, Denies confusion, Denies dizziness, Denies headache(s), Denies focal weakness, Denies loss of vision, Denies numbness, Denies Other visual disturbances and Denies Sensory deficit (Neuro) Psychiatric: Psychiatric: Denies confusion, Denies depression, Denies auditory hallucinations, Denies homicidal ideation and Denies suicidal ideation Endocrine: Endocrine: Denies cold intolerance, Denies excessive sweating, Denies fatigue, Denies heat intolerance and Denies palpitations Hematologic/Lymphatic: Hematologic/Lymphatic: Denies easy bleeding and Denies easy bruising Allergic/Immunologic: Allergic/Immunologic: Denies lip swelling, Denies throat swelling and Denies tongue swelling PMFSH Past Medical History Medical History Chronic renal failure, stage 3 (moderate) COPD (chronic obstructive pulmonary disease) DM2 (diabetes mellitus, type 2) DVT (deep venous thrombosis) History of heart attack 07/2020 EF 35% Paroxysma
[2021-04-07 10:33] LABS: Basophils Percent Auto 0.2 % (0.2-1.2); Eosinophils Percent Auto 0.1 % (0-4.4); Immature Granulocyte Absolute 0.04 K/mm3 (0.00-0.031); Immature Granulocyte Percent A 0.4 % (0-0.5); Lymphocytes Absolute Auto 0.71 K/mm3 (0.9-3.2); Lymphocytes Percent Auto 7.1 % (18.3-44.2); Mean Corpuscular HGB Conc 28.5 g/dl (32-36); Mean Corpuscular Hemoglobin 28.3 pg (26-34); Mean Corpuscular Volume 99.4 fl (80-100); Mean Platelet Volume 10.1 fl (7.4-10.4); Monocytes Absolute Auto 0.3 K/mm3 (0.1-0.6); Monocytes Percent Auto 3.2 % (2.6-8.5); Neutrophils Absolute Auto 8.8 K/mm3 (1.3-6.7); Platelet Count Result 305 k/mm3 (150-375); Red Blood Count 1.73 M/mm3 (4.6-6.20); Red Cell Distribution Width 15.9 % (11.5-14.5); White Blood Count 9.9 K/mm3 (4.5-10.0)
[2021-04-07 10:49] LABS: INR 1.4; Partial Thromboplastin Time 30.3 SECONDS (22.3-36.8); Prothrombin Time 17.3 Seconds (11.1-14.7)
[2021-04-07 10:59] LABS: Hematocrit 17.2 % (42.0-52.0); Hemoglobin 4.9 g/dL (14.0-18.0)
[2021-04-07 11:01] LABS: Alanine Aminotransferase 16 U/L (4-50); Albumin Level 3.9 g/dL (3.5-5.1); Alkaline Phosphatase 85 U/L (38-126); Anion Gap 14 mmol/L (8-16); Aspartate Amino Transferase 27 U/L (17-59); Bilirubin,Total 0.4 mg/dL (0.2-1.3); Blood Urea Nitrogen 48 mg/dL (9-20); Calcium 8.7 mg/dL (8.4-10.2); Carbon Dioxide 18 mmol/L (22-30); Chloride 102 mmol/L (98-107); Estimated CRCL calculation 29 ml/min; Estimated Glomerular Filt Rate 28; Glucose 218 mg/dL (65-110); Potassium 6.5 mmol/L (3.4-5.0); Sodium 134 mmol/L (137-145)
[2021-04-07 11:11] LABS: NT Pro B Type Natriuretic Pept 10200 pg/mL (5-100); Troponin I 0.026 ng/mL (0.000-0.034)
[2021-04-07] MEDS: INSULIN HUMAN REGULAR (*BKC) 100 UNITS/ML 10 UNITS IV PUSH (11:31)
[2021-04-07] MEDS: DEXTROSE 50% 25 GM/50 ML SYRINGE IV PUSH (11:31)
[2021-04-07] MEDS: CALCIUM GLUC 1,000 MG/NS 50 ML 1,000 MG/50 ML BAG 100 MG IVPB (11:47)
[2021-04-07 11:56] LABS: Hematocrit 16.1 % (42.0-52.0)
[2021-04-07 11:58] LABS: Hemoglobin 4.6 g/dL (14.0-18.0)
[2021-04-07] MEDS: PANTOPRAZOLE SODIUM IV 40 MG VIAL 80 MG IV PUSH (12:11)
[2021-04-07 12:21] LABS: Glucose Point of Care 215 mg/dl (65-105)
--- NOTE | 2021-04-07 14:14 | PC.NURSE ---
This patient, Giovanni Drew, was admitted to IMU Room 202-. Patient/family oriented to hospital policies and general routines including ID bracelet, bed and alarms, visiting hours, pain management, procedures, bathroom and other care routines, personal items, smoking policy, room service/diet, and visiting hours. Information on how to activate the Rapid Response Team has been discussed. Patient/Family are encouraged to report perceived risks to care and to ask questions if they do not understand what they are told or what they should do.
--- NOTE | 2021-04-07 16:03 | PM.IMHP ---
H&P: HPI History of Present Illness Date/Time: 04/07/21 16:03 Chief Complaint: GI bleed Narrative: Patient is a 71-year-old male brought in by EMS complaining of generalized weakness and fall today. Is been ongoing for a long time in gets annoyed with any questions. Most of the history is taken from his is at the bedside. He has multiple different medical problems like coronary artery disease for which he had a recent stent put in at [facility] congestive heart failure hypertension COPD chronic kidney disease stage 3 for baseline creatinine mid 2s. Presented with black stool since past few days as well. He was recently admitted at [facility] with similar complaint and had a colonoscopy done which according to the did not reveal any findings. He did not have an EGD done at that time. He did report required transfusion in the other hospital 2 weeks ago. On evaluation of his labs is noted to have hemoglobin of 4.6 with the guaiac-positive stool. He denies any chest pain abdominal pain. He does report nausea vomiting since past few days on and off will to tolerating diet. Review of Systems Review of Systems: - CONSTITUTIONAL: Denies weight loss, fever and chills. - HEENT: Denies changes in vision and hearing - RESPIRATORY: Reports chronic SOB and cough. - CV: Denies palpitations and CP. - GI: Denies abdominal pain, reports nausea, vomiting and denies diarrhea. - : Denies dysuria and urinary frequency. - MSK: Denies myalgia and joint pain. - SKIN: Denies rash and pruritus. - NEUROLOGICAL: Denies headache and syncope. - PSYCHIATRIC: Denies recent changes in mood. Denies anxiety and depression. All systems reviewed & are unremarkable except as noted in HPI and below Constitutional: Constitutional: Reports fatigue and Reports weakness Neurologic: Reports weakness Endocrine: Endocrine: Reports fatigue PMFSH Past Medical History Medical History (Updated 04/07/21 @ 16:09 by Jesus Suarez MD) Chronic renal failure, stage 3 (moderate) COPD (chronic obstructive pulmonary disease) DM2 (diabetes mellitus, type 2) DVT (deep venous thrombosis) History of heart attack 07/2020 EF 35% Paroxysmal A-fib Psoriasis Tobacco abuse Surgical History Surgical History H/O craniotomy Subdural hematoma S/P arthroscopic surgery of right knee Family History Family History Mother Cerebrovascular accident Diabetes mellitus Father Natural with proved cause Social History Social History Social History: The patient is and has 4 biological children. The patient is a full code. His is the durable power mergers and acquisitions attorney for healthcare. 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 Patient smokes 1 and half packs of cigarettes a day. He denies any alcohol or illicit drugs. Smoking packs per day: 1 Smoking cigarettes per day: 20.0 Years smoked: 51 Smoking pack-years: 51.00 Smoking status: Current every day smoker Second hand tobacco smoke exposure: Yes Alcohol intake: never Drinks per week: 0 Substance use: never Additional living arrangements comments: Gender identity (if verbalized by the patient): Male Sexual Orientation (if Verbalized by the Patient): Straight or Heterosexual Spiritual care concerns: No Meds Home Medications and Allergies Home Medications Medication Instructions Recorded Confirmed Type aspirin 81 mg PO QAM #30 tablet 08/17/20 04/07/21 Rx losartan 12.5 mg PO DAILY #30 tablet 08/17/20 04/07/21 Rx metformin 1,000 mg PO BID 09/14/20 04/07/21 History amiodarone 200 mg PO DAILY 12/15/20 04/07/21 History atorvastatin 80 mg PO HS 04/07/21 04/07/21 History ciprofloxacin HCl 500 mg PO 12 04/07/21 04/07/21 History glipizide 5 mg PO BID 04/07/21 04/07/21 History metoprolol tartrate
[2021-04-07 17:12] LABS: Anion Gap 10 mmol/L (8-16); Blood Urea Nitrogen 48 mg/dL (9-20); Calcium 8.7 mg/dL (8.4-10.2); Carbon Dioxide 20 mmol/L (22-30); Chloride 101 mmol/L (98-107); Estimated CRCL calculation 28 ml/min; Estimated Glomerular Filt Rate 28; Glucose 173 mg/dL (65-110); Potassium 5.2 mmol/L (3.4-5.0); Sodium 131 mmol/L (137-145)
[2021-04-07 17:22] LABS: Glucose Point of Care 194 mg/dl (65-105)
[2021-04-07 17:28] LABS: Hematocrit 16.3 % (42.0-52.0); Hemoglobin 4.7 g/dL (14.0-18.0)
[2021-04-07] MEDS: TUBING, BLOOD PLUM PUMP TUBING 1 EACH XX (18:38)
[2021-04-07] MEDS: SODIUM CHLORIDE 0.9% IV 250 ML 30 ML IV CONT (18:38)
--- NOTE | 2021-04-07 18:47 | PC.NURSE ---
Spouse took all home meds home with her on 04/07/21 at 1848.
[2021-04-07] MEDS: ATORVASTATIN 40 MG TABLET 80 MG PO (21:38)
[2021-04-07] MEDS: TAMSULOSIN HCL 0.4 MG CAPSULE PO (21:39)
[2021-04-07] MEDS: FUROSEMIDE INJ 40 MG/4 ML VIAL 20 MG IV PUSH (21:39)
[2021-04-08] VITALS (20 sets, daily range): BP systolic 103–126; BP diastolic 50–70; PULSE 75–85; RESP 16–20; TEMP 36.3–36.6; O2SAT 91–100
[2021-04-08 00:58] LABS: Glucose Point of Care 197 mg/dl (65-105)
[2021-04-08 02:51] LABS: Anion Gap 11 mmol/L (8-16); Blood Urea Nitrogen 45 mg/dL (9-20); Calcium 8.3 mg/dL (8.4-10.2); Carbon Dioxide 18 mmol/L (22-30); Chloride 99 mmol/L (98-107); Estimated CRCL calculation 29 ml/min; Estimated Glomerular Filt Rate 30; Glucose 205 mg/dL (65-110); Sodium 128 mmol/L (137-145)
[2021-04-08 03:02] LABS: Basophils Percent Auto 0.5 % (0.2-1.2); Eosinophils Absolute Auto 0.1 K/mm3 (0-0.3); Eosinophils Percent Auto 0.9 % (0-4.4); Hematocrit 21.4 % (42.0-52.0); Immature Granulocyte Absolute 0.02 K/mm3 (0.00-0.031); Immature Granulocyte Percent A 0.3 % (0-0.5); Lymphocytes Absolute Auto 1.25 K/mm3 (0.9-3.2); Lymphocytes Percent Auto 15.8 % (18.3-44.2); Mean Corpuscular HGB Conc 30.4 g/dl (32-36); Mean Corpuscular Hemoglobin 28.8 pg (26-34); Mean Corpuscular Volume 94.7 fl (80-100); Mean Platelet Volume 10.9 fl (7.4-10.4); Monocytes Absolute Auto 0.5 K/mm3 (0.1-0.6); Monocytes Percent Auto 6.6 % (2.6-8.5); Neutrophils Percent Auto 75.9 % (45.5-73.1); Nucleated Red Blood Cells Perc 0.3 % (0.0-0.2); Platelet Count Result 235 k/mm3 (150-375); Red Blood Count 2.26 M/mm3 (4.6-6.20); Red Cell Distribution Width 15.2 % (11.5-14.5); White Blood Count 7.9 K/mm3 (4.5-10.0)
[2021-04-08 03:03] LABS: Hemoglobin A1C 5.3 % (<5.7)
[2021-04-08 03:41] LABS: Hemoglobin 6.5 g/dL (14.0-18.0)
[2021-04-08 06:19] LABS: Glucose Point of Care 187 mg/dl (65-105)
[2021-04-08] MEDS: AMIODARONE HCL 200 MG TABLET PO (08:29)
[2021-04-08 08:56] LABS: Glucose Point of Care 177 mg/dl (65-105)
--- NOTE | 2021-04-08 09:25 | WPDGICN ---
Assessment and Plan Assessment and plan (1) Anemia: Qualifiers: Anemia type: unspecified type Qualified Code(s): D64.9 - Anemia, unspecified Code(s): D64.9 - Anemia, unspecified Status: Acute Assessment and Plan: Patient with anemia likely multifactorial. He now has black melenic stools. Suggestive of upper GI bleeding. Apparently had recent colonoscopy although records not immediately available are being requested. Plan to transfuse to stable hemoglobin. EGD will be planned tomorrow after transfusion. Xarelto taken because of atrial fibrillation will be held and should not be started until its safety is established. (2) Melena: Code(s): K92.1 - Melena Status: Acute Assessment and Plan: Black melenic stools with confirmed to be Hemoccult positive suggestive of upper GI bleeding source plan for EGD after transfusion. (3) ASHD (arteriosclerotic heart disease): Code(s): I25.10 - Atherosclerotic heart disease of sun'aq coronary artery without angina pectoris Status: Acute (4) Paroxysmal A-fib: Code(s): I48.0 - Paroxysmal atrial fibrillation Status: Chronic Assessment and Plan: Patient on Xarelto because of atrial fib relation this will need to be held until its safety can be established. GI Consult Note Consult date/time: 04/08/21 09:25 HPI: Giovanni Drew is a 71 year old male I am asked to see at the request of the emergency room. Patient is a very difficult historian. He states his main complaint is leg weakness. Apparently brought to the emergency room by his . He has had some poor appetite for some time associated with some nausea. He apparently has had black stools for several weeks. Upon presenting to the emergency room. He was found to have heme-positive stools in a profound anemia with hemoglobin of 4-1/2. Patient apparently seen at [facility] and apparently a colonoscopy done recently he describes as being unremarkable. Review of Systems Review of Systems: ROS unobtainable: Yes unobtainable due to mental status PMFSH Past Medical History Medical History (Updated 04/08/21 @ 09:28 by Eliot Zamora MD) Chronic renal failure, stage 3 (moderate) COPD (chronic obstructive pulmonary disease) DM2 (diabetes mellitus, type 2) DVT (deep venous thrombosis) History of heart attack 07/2020 EF 35% Paroxysmal A-fib Psoriasis Tobacco abuse Surgical History Surgical History H/O craniotomy Subdural hematoma S/P arthroscopic surgery of right knee Family History Family History Mother Cerebrovascular accident Diabetes mellitus Father Natural with proved cause Social History Social History Social History: The patient is and has 4 biological children. The patient is a full code. His is the durable power commonwealth attorney for healthcare. 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 Patient smokes 1 and half packs of cigarettes a day. He denies any alcohol or illicit drugs. Smoking packs per day: 1 Smoking cigarettes per day: 20.0 Years smoked: 51 Smoking pack-years: 51.00 Smoking status: Current every day smoker Second hand tobacco smoke exposure: Yes Alcohol intake: never Drinks per week: 0 Substance use: never Additional living arrangements comments: Gender identity (if verbalized by the patient): Male Sexual Orientation (if Verbalized by the Patient): Straight or Heterosexual Spiritual care concerns: No Meds Home Medications and Allergies Home Medications Medication Instructions Recorded Confirmed Type aspirin 81 mg PO QAM #30 tablet 08/17/20 04/07/21 Rx losartan 12.5 mg PO DAILY #30 tablet 08/17/20 04/07/21 Rx metformin 1,000 mg PO BID 09/14/20 04/07/21 History amiodarone 200 mg PO D
[2021-04-08 13:03] LABS: Hematocrit 26.3 % (42.0-52.0); Hemoglobin 8.4 g/dL (14.0-18.0)
--- NOTE | 2021-04-08 14:52 | PM.IMPN ---
Progress Note: A&P Assessment and Plan (1) Anemia: Qualifiers: Anemia type: unspecified type Qualified Code(s): D64.9 - Anemia, unspecified Code(s): D64.9 - Anemia, unspecified Status: Acute Assessment and Plan: Hb is 8.4 today sp blood transfusion Monitor hb tomorrow (2) Acute gastrointestinal bleeding: Code(s): K92.2 - Gastrointestinal hemorrhage, unspecified Status: Acute Assessment and Plan: Pt is going for EGD tomorrow Pt to continue iv protonix today (3) Chronic renal failure, stage 3 (moderate): Qualifiers: Chronic kidney disease stage 3 subtype: unspecified whether 3a or 3b Qualified Code(s): N18.30 - Chronic kidney disease, stage 3 unspecified Code(s): N18.30 - Chronic kidney disease, stage 3 unspecified Status: Chronic Assessment and Plan: Creat is 2.2 (4) BPH loc w urin obs/LUTS: Code(s): N40.1 - Benign prostatic hyperplasia with lower urinary tract symptoms Status: Acute Assessment and Plan: Chronic history, pt is on tamsulosin (5) Ischemic cardiomyopathy: Code(s): I25.5 - Ischemic cardiomyopathy Status: Acute Assessment and Plan: Chronic history (6) Congestive heart failure: Qualifiers: Heart failure chronicity: chronic Heart failure type: unspecified Qualified Code(s): I50.9 - Heart failure, unspecified Code(s): I50.9 - Heart failure, unspecified Status: Acute Assessment and Plan: Lasix 20 mg iv qdaily, pt to cont entresto (7) DM2 (diabetes mellitus, type 2): Qualifiers: Diabetes mellitus terminal block assembler insulin use: without alf use Diabetes mellitus complication status: with hyperglycemia Qualified Code(s): E11.65 - Type 2 diabetes mellitus with hyperglycemia Code(s): E11.9 - Type 2 diabetes mellitus without complications Status: Chronic Assessment and Plan: Accuchecks, Ssi insulin (8) Paroxysmal A-fib: Code(s): I48.0 - Paroxysmal atrial fibrillation Status: Chronic Assessment and Plan: On amiodarone orally (9) DVT (deep venous thrombosis): Code(s): I82.409 - Acute embolism and thrombosis of unspecified deep veins of unspecified lower extremity Status: Inactive Assessment and Plan: Hold xarelto Subjective Date/time seen: 04/08/21 14:52 Interval history: 71-year-old male brought in by EMS complaining of generalized weakness and fall today. Pt found to be anemic, hb is 6.5. He has multiple different medical problems like coronary artery disease for which he had a recent stent put in at [facility] congestive heart failure hypertension COPD chronic kidney disease stage 3. creat 2.2. sodium is 128. Pt is sp blood transfusion today. Review of Systems Review of Systems: All systems reviewed & are unremarkable except as noted in HPI and below Exam Narrative: GENERAL: The patient is pale CHEST: Chest wall is nontender. HEART: Regular rate and rhythm without murmur, rubs, or gallops LUNGS: Clear to auscultation bilaterally. no respiratory distress ABDOMEN: Soft, positive bowel sounds, non-tender, no organomegaly. SKIN: No rash, no excessive bruising, petechiae, or purpura. NEUROLOGIC: Cranial nerves II-XII intact, alert and oriented x 3, no gross motor deficits EXTREMITIES: 2+ bilateral lower extremity edema, no cyanosis or clubbing Objective Data Vital Signs Vital Signs: Vital Signs - 24 hr 04/07/21 15:03 04/07/21 16:00 04/07/21 17:35 Temperature 36.4 C 36.9 C 36.8 C Pulse Rate 88 83 Respiratory Rate 16 20 18 Blood Pressure 108/46 L 109/52 L 106/50 L Pulse Oximetry 100 99 100 04/07/21 17:43 04/07/21 17:49 04/07/21 17:52 Temperature 36.7 C 36.6 C 36.6 C Pulse Rate 82 80 83 Respiratory Rate 16 16 16 Blood Pressure 105/42 L 101/42 L 105/43 L Pulse Oximetry 100 100 100 04/07/21 18:00 04/07/21 18:50 04/07/21 18:52 Temperature 36.5 C 36.5 C P
[2021-04-08 16:12] LABS: Glucose Point of Care 192 mg/dl (65-105)
[2021-04-08 16:37] LABS: Hematocrit 27.4 % (42.0-52.0); Hemoglobin 8.6 g/dL (14.0-18.0)
[2021-04-08] MEDS: ATORVASTATIN 40 MG TABLET 80 MG PO (20:34)
[2021-04-08] MEDS: TAMSULOSIN HCL 0.4 MG CAPSULE PO (20:35)
[2021-04-09] VITALS (17 sets, daily range): BP systolic 85–121; BP diastolic 45–59; PULSE 69–93; RESP 16–29; TEMP 36.2–36.7; O2SAT 93–100; BMI 22.1
[2021-04-09 00:02] LABS: Glucose Point of Care 194 mg/dl (65-105)
[2021-04-09 06:13] LABS: Glucose Point of Care 157 mg/dl (65-105)
[2021-04-09 08:35] LABS: Hematocrit 24.9 % (42.0-52.0); Hemoglobin 7.9 g/dL (14.0-18.0); Mean Corpuscular HGB Conc 31.7 g/dl (32-36); Mean Corpuscular Volume 91.5 fl (80-100); Mean Platelet Volume 10.4 fl (7.4-10.4); Platelet Count Result 217 k/mm3 (150-375); Red Blood Count 2.72 M/mm3 (4.6-6.20); Red Cell Distribution Width 15.1 % (11.5-14.5); White Blood Count 8.4 K/mm3 (4.5-10.0)
[2021-04-09 08:47] LABS: Anion Gap 7 mmol/L (8-16); Blood Urea Nitrogen 36 mg/dL (9-20); Calcium 8.5 mg/dL (8.4-10.2); Carbon Dioxide 24 mmol/L (22-30); Chloride 104 mmol/L (98-107); Estimated CRCL calculation 27 ml/min; Estimated Glomerular Filt Rate 27; Glucose 153 mg/dL (65-110); Potassium 4.4 mmol/L (3.4-5.0); Sodium 135 mmol/L (137-145)
[2021-04-09] MEDS: AMIODARONE HCL 200 MG TABLET PO (09:16)
--- NOTE | 2021-04-09 09:16 | PM.IMPN ---
Progress Note: A&P Assessment and Plan (1) Anemia: Qualifiers: Anemia type: unspecified type Qualified Code(s): D64.9 - Anemia, unspecified Code(s): D64.9 - Anemia, unspecified Status: Acute Assessment and Plan: Hgb 4.6 on admission. Patient has been having black stools for the past few days prior to admission. Patient has acute blood loss anemia. He was recently admitted to another hospital with similar complaints and had a colonoscopy that was negative per family. Results are not available at this time. No EGD was done at that time. Patient has been transfused 3 units of packed red blood cells. Hemoglobin has climbed into the 7-8 range. Continue to monitor closely to ensure stability. Transfuse as necessary. (2) Hyperkalemia: Code(s): E87.5 - Hyperkalemia Status: Acute Assessment and Plan: Potassium 6.5 on admission felt related to his ARB and CKD. Potassium better today. Clarify home medications. Continue to follow. (3) Acute gastrointestinal bleeding: Code(s): K92.2 - Gastrointestinal hemorrhage, unspecified Status: Acute Assessment and Plan: As above. GI consulted. Pt is going for EGD today. Continue iv Protonix. (4) ASHD (arteriosclerotic heart disease): Code(s): I25.10 - Atherosclerotic heart disease of [place] coronary artery without angina pectoris Status: Acute Assessment and Plan: Patient with CAD status post recent stents at [place] in January 2021. He presents with GI bleed and profound anemia on Xarelto, ASA and Brilinta. These medications on hold. As above. Resume antiplt/anticoag as soon as possible given recent stent placement. Lipitor resumed. (5) Chronic renal failure, stage 3 (moderate): Qualifiers: Chronic kidney disease stage 3 subtype: unspecified whether 3a or 3b Qualified Code(s): N18.30 - Chronic kidney disease, stage 3 unspecified Code(s): N18.30 - Chronic kidney disease, stage 3 unspecified Status: Chronic Assessment and Plan: Creatinine mostly in the 1.9-2.3 range since July. Creatinine was 2.3 on admission has been stable. Continue to follow. (6) Congestive heart failure: Qualifiers: Heart failure chronicity: chronic Heart failure type: unspecified Qualified Code(s): I50.9 - Heart failure, unspecified Code(s): I50.9 - Heart failure, unspecified Status: Acute Assessment and Plan: Suspect acute on chronic systolic and diastolic CHF. Probably related to anemia. CXR showing pulmonary edema with BNP 10K. Lasix 20 mg IV once given 04/07. Excellent UOP since admission but with even fluid balance. Entresto held due to the hyperkalemia. Also on losartan but would seem unlikely so will clarify. Metoprolol on hold as well due to soft BP. Resume medications as toerlated. (7) Ischemic cardiomyopathy: Code(s): I25.5 - Ischemic cardiomyopathy Status: Acute Assessment and Plan: Patient with chronic systolic and diastolic dysfunction. EF was 35% with wall motion abnormalities by echocardiogram in July 2020. Treatment as above. (8) DM2 (diabetes mellitus, type 2): Qualifiers: Diabetes mellitus complication status: with hyperglycemia Diabetes mellitus maintenance electrician insulin use: without snf use Qualified Code(s): E11.65 - Type 2 diabetes mellitus with hyperglycemia Code(s): E11.9 - Type 2 diabetes mellitus without complications Status: Chronic Assessment and Plan: A1c 5.3. The patient's blood glucose was reviewed on 04/09 Glucose remains elevated at times. A1c maybe falsely low due to the anemia. Metformin and glipizide remain on hold. Continue AccuCheks covering with sliding scale. Hypoglycemia protocol available as needed. Continue to monitor (9) Paroxysmal A-fib: Code(s): I48.0 - Paroxysmal atrial fibrillation Status: Chronic Assessment and Plan:
[2021-04-09] MEDS: LACTATED RINGERS 1,000 ML 150 ML IV CONT (10:05)
--- NOTE | 2021-04-09 10:07 | WPDANESEPPF ---
Anes - Initial Pre Proc Eval Procedure: Operation Date: 04/09/21 15:15 Proposed Procedures p Esophagogastroduodenoscopy - Eliot Zamora MD Date/Time: 04/09/21 10:07 Surgeon: Jesus Suarez MD Pre Op Diagnosis: Acute GI Bleed, Anemia, Hyperkalemia, CHF Patient Data Age: 71 Gender: M Height: 1.83 m Weight: 74.3 kg Last Vital Signs Temp 36.3 C L 04/09/21 10:06 Pulse 81 04/09/21 10:06 Resp 24 H 04/09/21 10:06 BP 121/52 L 04/09/21 10:06 Pulse Ox 95 04/09/21 10:06 Allergies Allergy/AdvReac Type Severity Reaction Status Date / Time Penicillins Allergy Rash,SOB Verified 04/09/21 10:03 Home Medications Medication Instructions Recorded Confirmed Type aspirin 81 mg PO QAM #30 tablet 08/17/20 04/07/21 Rx losartan 12.5 mg PO DAILY #30 tablet 08/17/20 04/07/21 Rx metformin 1,000 mg PO BID 09/14/20 04/07/21 History amiodarone 200 mg PO DAILY 12/15/20 04/07/21 History atorvastatin 80 mg PO HS 04/07/21 04/07/21 History ciprofloxacin HCl 500 mg PO 12 04/07/21 04/07/21 History glipizide 5 mg PO BID 04/07/21 04/07/21 History metoprolol tartrate 50 mg PO QPM 04/07/21 04/07/21 History rivaroxaban [Xarelto] 15 mg PO DAILY 04/07/21 04/07/21 History sacubitril-valsartan [Entresto] 1 tablet PO BID 04/07/21 04/07/21 History tamsulosin 0.4 mg PO HS 04/07/21 04/07/21 History ticagrelor [Brilinta] 90 mg PO Q12H 04/07/21 04/07/21 History Laboratory Tests 04/07/21 04/08/21 04/08/21 11:43 12:53 15:58 WBC RBC Hgb 8.4 g/dL L g/dL (14.0-18.0) Hct 26.3 % L % (42.0-52.0) MCV MCH MCHC RDW Plt Count MPV Sodium Potassium Chloride Carbon Dioxide Anion Gap BUN Creatinine Estim Creat Clear Calc Estimated GFR Glucose POC Capillary Glucose 192 mg/dl H mg/dl (65-105) Calcium Crossmatch See Detail 04/08/21 04/08/21 04/09/21 16:22 23:57 06:10 WBC RBC Hgb 8.6 g/dL L g/dL (14.0-18.0) Hct 27.4 % L % (42.0-52.0) MCV MCH MCHC RDW Plt Count MPV Sodium Potassium Chloride Carbon Dioxide Anion Gap BUN Creatinine Estim Creat Clear Calc Estimated GFR Glucose POC Capillary Glucose 194 mg/dl H mg/dl 157 mg/dl H mg/dl (65-105) (65-105) Calcium Crossmatch 04/09/21 04/09/21 08:22 08:22 WBC 8.4 K/mm3 K/mm3 (4.5-10.0) RBC 2.72 M/mm3 L M/mm3 (4.6-6.20) Hgb 7.9 g/dL L g/dL (14.0-18.0) Hct 24.9 % L % (42.0-52.0) MCV 91.5 fl fl (80-100) MCH 29.0 pg pg (26-34) MCHC 31.7 g/dl L g/dl (32-36) RDW 15.1 % H % (11.5-14.5) Plt Count 217 k/mm3 k/mm3 (150-375) MPV 10.4 fl fl (7.4-10.4) Sodium 135 mmol/L L mmol/L (137-145) Potassium 4.4 mmol/L mmol/L (3.4-5.0) Chloride 104 mmol/L mmol/L (98-107) Carbon Dioxide 24 mmol/L mmol/L (22-30) Anion Gap 7 mmol/L L mmol/L (8-16) BUN 36 mg/dL H mg/dL (9-20) Creatinine 2.40 mg/dL H mg/dL (0.7-1.3) Estim Creat Clear Calc 27 ml/min ml/min Estimated GFR 27 L (59 - ) Glucose 153 mg/dL H mg/dL (65-110) POC Capillary Glucose Calcium 8.5 mg/dL mg/dL (8.4-10.2) Crossmatch Patient hx anesthesia problems: none Family hx anesthesia problems: none Results Review: All pre-operative results and documents have been reviewed as part of the pre-operative evaluation. FORMERLY [facility], [facility] Past Medical History Medical History (Updated 04/09/21 @ 09:29 by Didier
[2021-04-09 10:12] LABS: Glucose Point of Care 141 mg/dl (65-105)
--- NOTE | 2021-04-09 11:58 | PC.NURSE ---
Cardiop[facility] Rehab Services flyer was given to patient in cardiac admission folder.
[2021-04-09 12:10] LABS: Hematocrit 24.9 % (42.0-52.0); Hemoglobin 7.8 g/dL (14.0-18.0)
[2021-04-09 13:08] LABS: Glucose Point of Care 215 mg/dl (65-105)
[2021-04-09] MEDS: PEG (High)/E-LYTE SOLN 4,000 ML BTL 4000 ML PO (13:22)
--- NOTE | 2021-04-09 14:03 | PCNSR ---
On 04/09/21, the student, Tonia Corbin, provided care and completed [facility] documentation on this patient. I have reviewed the student's documentation and agree with the findings.
[2021-04-09 17:34] LABS: Hematocrit 25.8 % (42.0-52.0)
[2021-04-09 18:36] LABS: Glucose Point of Care 204 mg/dl (65-105)
[2021-04-09] MEDS: ATORVASTATIN 40 MG TABLET 80 MG PO (20:55)
[2021-04-09] MEDS: TAMSULOSIN HCL 0.4 MG CAPSULE PO (20:55)
[2021-04-10] VITALS (19 sets, daily range): BP systolic 89–122; BP diastolic 42–58; PULSE 65–85; RESP 18–25; TEMP 36.4–37.1; O2SAT 94–99
[2021-04-10 00:27] LABS: Hematocrit 23.9 % (42.0-52.0); Hemoglobin 7.5 g/dL (14.0-18.0)
[2021-04-10 04:42] LABS: Basophils Percent Auto 0.5 % (0.2-1.2); Eosinophils Absolute Auto 0.2 K/mm3 (0-0.3); Eosinophils Percent Auto 2.7 % (0-4.4); Hematocrit 22.3 % (42.0-52.0); Hemoglobin 7.2 g/dL (14.0-18.0); Immature Granulocyte Absolute 0.02 K/mm3 (0.00-0.031); Immature Granulocyte Percent A 0.3 % (0-0.5); Lymphocytes Absolute Auto 0.83 K/mm3 (0.9-3.2); Lymphocytes Percent Auto 13.3 % (18.3-44.2); Mean Corpuscular HGB Conc 32.3 g/dl (32-36); Mean Corpuscular Hemoglobin 29.4 pg (26-34); Mean Platelet Volume 10.3 fl (7.4-10.4); Monocytes Absolute Auto 0.4 K/mm3 (0.1-0.6); Monocytes Percent Auto 6.9 % (2.6-8.5); Neutrophils Absolute Auto 4.8 K/mm3 (1.3-6.7); Neutrophils Percent Auto 76.3 % (45.5-73.1); Platelet Count Result 194 k/mm3 (150-375); Red Blood Count 2.45 M/mm3 (4.6-6.20); Red Cell Distribution Width 14.6 % (11.5-14.5); White Blood Count 6.3 K/mm3 (4.5-10.0)
[2021-04-10 04:54] LABS: Alanine Aminotransferase 15 U/L (4-50); Albumin Level 3.2 g/dL (3.5-5.1); Alkaline Phosphatase 82 U/L (38-126); Anion Gap 6 mmol/L (8-16); Aspartate Amino Transferase 26 U/L (17-59); Bilirubin,Total 0.7 mg/dL (0.2-1.3); Blood Urea Nitrogen 26 mg/dL (9-20); Calcium 8.1 mg/dL (8.4-10.2); Carbon Dioxide 26 mmol/L (22-30); Chloride 101 mmol/L (98-107); Estimated CRCL calculation 32 ml/min; Estimated Glomerular Filt Rate 33; Glucose 139 mg/dL (65-110); Magnesium 2.1 mg/dL (1.6-2.3); Potassium 3.9 mmol/L (3.4-5.0); Sodium 133 mmol/L (137-145)
--- NOTE | 2021-04-10 06:36 | P.CDI_ITS ---
CDI Query Clarification Request -Acute GI bleed has been documented -Per nursing stool was dark red on 04/07 and 04/09 and 04/10 black liquid - On arrival H&H 4.9/17.2. Pt received 3 U blood. 04/10 H&H 7.2/.3 -Anemia, unspecified and severe symptomatic anemia have been documented Please clarify type/cause and acuity of anemia: * Acute blood loss * Chronic blood loss * Acute on chronic blood loss * Acute anemia of other cause * Chronic anemia of other cause * Acute on chronic anemia of other cause * Other * Unable to determine <Ailyn Payan RN - Last Filed: 04/10/21 07:29>
--- NOTE | 2021-04-10 06:36 | WPDCDIQUERY2 ---
CDI Query Clarification Request -Acute GI bleed has been documented -Per nursing stool was dark red on 04/07 and 04/09 and 04/10 black liquid - On arrival H&H 4.9/17.2. Pt received 3 U blood. 04/10 H&H 7.2/.3 -Anemia, unspecified and severe symptomatic anemia have been documented Please clarify type/cause and acuity of anemia: Acute blood loss Chronic blood loss Acute on chronic blood loss Acute anemia of other cause Chronic anemia of other cause Acute on chronic anemia of other cause Other Unable to determine <Ailyn Payan RN - Last Filed: 04/10/21 07:29>
--- NOTE | 2021-04-10 08:20 | PC.NURSE ---
Patient noted to be drinking tea and kirti mist. Patient is NPO for scope today. This nurse removed tea. Upon attempting to remove kirti mist, the patient took the can stating I always have something to drink before my scopes. You're not taking this. GI lab notified. Patient informed that if he drinks any more, he will not be a candidate for a scope today. Patient agrees to let this nurse take Kirti Mist.
--- NOTE | 2021-04-10 09:45 | PM.IMPN ---
Progress Note: A&P Assessment and Plan (1) Anemia: Qualifiers: Anemia type: unspecified type Qualified Code(s): D64.9 - Anemia, unspecified Code(s): D64.9 - Anemia, unspecified Status: Acute Assessment and Plan: Hgb 4.6 on admission. Patient has been having black stools for the past few days prior to admission. Patient has acute blood loss anemia. He was recently admitted to another hospital with similar complaints and had a colonoscopy with polypectomy. EGD normal here. Colonoscopy planned for today. Stool has cleared and no further evidence of GI bleeding. Patient has been transfused 3 units of packed red blood cells. Hemoglobin has climbed into the 7-8 range and remaining stable. Continue to monitor closely to ensure stability. Transfuse as necessary. PT/OT started. (2) Hyperkalemia: Code(s): E87.5 - Hyperkalemia Status: Acute Assessment and Plan: Potassium 6.5 on admission felt related to his ARB and CKD. ARB and Entresto held. Potassium improved after appropriate treatment and has remained normal. Continue to follow. (3) Acute gastrointestinal bleeding: Code(s): K92.2 - Gastrointestinal hemorrhage, unspecified Status: Acute Assessment and Plan: As above. GI consulted. (4) PVD (peripheral vascular disease): Code(s): I73.9 - Peripheral vascular disease, unspecified Status: Acute Assessment and Plan: Patient has claudication in his toes worse when lying flat. He is known to have severe PVD. Resume antiplt therapy when able. (5) ASHD (arteriosclerotic heart disease): Code(s): I25.10 - Atherosclerotic heart disease of [place] coronary artery without angina pectoris Status: Acute Assessment and Plan: Patient with CAD status post recent JULIO at [place] in January 2021. He presents with GI bleed and profound anemia on Xarelto, ASA and Brilinta. These medications are on hold. As above. Resume antiplt/anticoag as soon as possible given recent stent placement. Continue Lipitor. (6) Chronic renal failure, stage 3 (moderate): Qualifiers: Chronic kidney disease stage 3 subtype: unspecified whether 3a or 3b Qualified Code(s): N18.30 - Chronic kidney disease, stage 3 unspecified Code(s): N18.30 - Chronic kidney disease, stage 3 unspecified Status: Chronic Assessment and Plan: Creatinine mostly in the 1.9-2.3 range since July. Creatinine was 2.3 on admission and has remained stable. May be difficult to resume Entresto due to the CKD and recurrent hyperkalemia. Continue to follow. (7) Congestive heart failure: Qualifiers: Heart failure chronicity: chronic Heart failure type: unspecified Qualified Code(s): I50.9 - Heart failure, unspecified Code(s): I50.9 - Heart failure, unspecified Status: Acute Assessment and Plan: Suspect acute on chronic systolic and diastolic CHF. Probably related to anemia. CXR showing pulmonary edema with BNP 10K. Lasix 20 mg IV once given 04/07. Excellent UOP since admission. Entresto held due to the hyperkalemia. Also on losartan that was confirmed by family. Metoprolol on hold as well due to soft BP. Resume low dose metoprolol. (8) Ischemic cardiomyopathy: Code(s): I25.5 - Ischemic cardiomyopathy Status: Acute Assessment and Plan: Patient with chronic systolic and diastolic dysfunction. EF was 20-25% in Jan 2021 by outside records. Treatment as above. (9) DM2 (diabetes mellitus, type 2): Qualifiers: Diabetes mellitus complication status: with hyperglycemia Diabetes mellitus mcc insulin use: without mcc use Qualified Code(s): E11.65 - Type 2 diabetes mellitus with hyperglycemia Code(s): E11.9 - Type 2 diabetes mellitus without complications Status: Chronic Assessment and Plan: A1c 5.3. The patient's blood glucose was reviewed on 04/10 Glucose remain
[2021-04-10] MEDS: AMIODARONE HCL 200 MG TABLET PO (09:58)
--- NOTE | 2021-04-10 10:05 | PC.NURSE ---
Attempted to give patient AM amiodarone and protonix with sip of liquids. Patient drank fluid prior to taking pills, then stated he could not take the pills because he had no water. Patient proceeded to spit pills out. Dr Garza notified. Patient given Amiodarone with 60 ml of liquid. Protonix to be administered after scope.
--- NOTE | 2021-04-10 11:00 | PC.NURSE ---
Bed alarm placed on patient at 0800 due to patient being high fall risk. Patient noted to have incontinent episode on the way to the commode during one transfer. Patient was helpied back to bed and liquid was removed from floor. Patient now refuses bed alarm. Remains fully alert and oriented. Educated on risks for falls. Patient admits to weakness and use of walker at home though refuses one here because I'm not going anywhere, anyway. Continues to get up to BSC and chair without assistance.
[2021-04-10 12:01] LABS: Hematocrit 23.1 % (42.0-52.0); Hemoglobin 7.4 g/dL (14.0-18.0)
[2021-04-10 12:21] LABS: Glucose Point of Care 124 mg/dl (65-105)
--- NOTE | 2021-04-10 13:20 | PC.NURSE ---
Patient to GI Lab for colonoscopy.
--- NOTE | 2021-04-10 13:42 | WPDANESEFPP ---
Anes - Eval Final PreProcedure Day of Procedure 04/10/21 13:42 Patient weight: normal Heart: regular rate and rhythm Lungs: clear to auscultation Airway: Mallampati scale class II Neurological: alert and oriented Last oral intake: >/= 8 hours ASA classification: IV Emergent: no Anesthetic plan: proceed Anesthesia type and monitoring: general GIVS and standard monitoring Results Review: All pre-operative results and documents have been reviewed as part of the pre-operative evaluation. Informed Consent: The patient's anesthetic plan and its attendant risks and benefits were discussed with the patient/family/POA. Questions were solicited and answers provided to the satisfaction of the patient/family/POA.
[2021-04-10] MEDS: LACTATED RINGERS 1,000 ML 150 ML IV CONT (13:59)
[2021-04-10 14:50] LABS: Glucose Point of Care 129 mg/dl (65-105)
--- NOTE | 2021-04-10 15:05 | SUR.PHASEII ---
Post procedure report given to FRANK Erazo. Radiology called and stated they were ready for pt. Pt transported to Radiology via strethcer and another RN. VSS. pt denies complaints. FRANK Erazo on break per Gabriela Esposito. FRANK Ochoa notified pt will be in radiology for some time.
[2021-04-10] MEDS: PANTOPRAZOLE 40 MG TABLET PO (16:59)
[2021-04-10 18:11] LABS: Hematocrit 23.8 % (42.0-52.0); Hemoglobin 7.5 g/dL (14.0-18.0)
[2021-04-10] MEDS: ATORVASTATIN 40 MG TABLET 80 MG PO (21:13)
[2021-04-10] MEDS: METOPROLOL TARTRATE 12.5 MG TABLET PO (21:13)
[2021-04-10] MEDS: TAMSULOSIN HCL 0.4 MG CAPSULE PO (21:14)
[2021-04-10 23:20] LABS: Glucose Point of Care 163 mg/dl (65-105)
[2021-04-11] VITALS (20 sets, daily range): BP systolic 98–131; BP diastolic 49–64; PULSE 61–82; RESP 16–24; TEMP 36.3–36.7; O2SAT 92–100
[2021-04-11 05:37] LABS: Hematocrit 22.4 % (42.0-52.0); Mean Corpuscular HGB Conc 31.3 g/dl (32-36); Mean Corpuscular Hemoglobin 28.9 pg (26-34); Mean Corpuscular Volume 92.6 fl (80-100); Platelet Count Result 199 k/mm3 (150-375); Red Blood Count 2.42 M/mm3 (4.6-6.20); Red Cell Distribution Width 14.7 % (11.5-14.5); White Blood Count 6.5 K/mm3 (4.5-10.0)
[2021-04-11 05:51] LABS: Albumin Level 2.9 g/dL (3.5-5.1); Anion Gap 5 mmol/L (8-16); Blood Urea Nitrogen 22 mg/dL (9-20); Calcium 8.2 mg/dL (8.4-10.2); Carbon Dioxide 29 mmol/L (22-30); Chloride 102 mmol/L (98-107); Estimated CRCL calculation 30 ml/min; Estimated Glomerular Filt Rate 31; Glucose 126 mg/dL (65-110); Magnesium 2.2 mg/dL (1.6-2.3); Phosphorus 3.3 mg/dL (2.5-4.5); Potassium 4.3 mmol/L (3.4-5.0); Sodium 136 mmol/L (137-145)
--- NOTE | 2021-04-11 07:13 | WPDGIPROGNO ---
Progress Note: A&P Assessment and Plan (1) Anemia: Qualifiers: Anemia type: unspecified type Qualified Code(s): D64.9 - Anemia, unspecified Code(s): D64.9 - Anemia, unspecified Status: Acute Assessment and Plan: Anemia stable at present. No signs of active bleeding. Anemia is likely multifactorial. GI series unremarkable although hemorrhoids evident. Small-bowel series unremarkable. No obvious risk for bleeding if anticoagulation restarted. However would be very cautious if anticoagulation restarted. Continue monitor hemoglobin conservatively. (2) Melena: Code(s): K92.1 - Melena Status: Acute Assessment and Plan: Melenic stools have resolved. No obvious signs of GI blood loss. No clear explanation for GI blood loss. Likely related anticoagulation. But also other etiologies contribute. Would follow conservatively at this point advance diet. Discharge when felt stable by other services. (3) Paroxysmal A-fib: Code(s): I48.0 - Paroxysmal atrial fibrillation Status: Chronic (4) ASHD (arteriosclerotic heart disease): Code(s): I25.10 - Atherosclerotic heart disease of [place] coronary artery without angina pectoris Status: Acute Subjective Date/time seen: 04/11/21 07:13 Patient alert and comfortable. Appears to be at baseline. No additional bleeding described. Hemoglobin has remained stable. Review of Systems Review of Systems: All systems reviewed & are unremarkable except as noted in HPI and below Exam Narrative: physical exam reveals patient be alert. Vital signs stable HEENT exam reveals no icterus. Lungs are clear. Heart without murmur. Abdomen bowel sounds present soft nontender with no organomegaly. Objective Data Vital Signs Vital Signs: Vital Signs - 24 hr 04/10/21 08:00 04/10/21 09:58 04/10/21 10:00 Temperature 98.4 F Pulse Rate 69 78 80 Respiratory Rate 20 Blood Pressure 122/58 L Pulse Oximetry 94 04/10/21 12:00 04/10/21 13:35 04/10/21 14:30 Temperature 98.8 F Pulse Rate 74 75 66 Respiratory Rate 18 25 H Blood Pressure 119/47 L 115/58 L Pulse Oximetry 97 95 04/10/21 14:33 04/10/21 14:43 04/10/21 14:53 Temperature Pulse Rate 68 70 72 Respiratory Rate 20 22 H 23 H Blood Pressure 89/48 L 92/48 L 99/58 L Pulse Oximetry 95 94 94 04/10/21 16:00 04/10/21 16:40 04/10/21 17:59 Temperature 98.4 F Pulse Rate 80 74 79 Respiratory Rate 18 18 Blood Pressure 111/57 L Pulse Oximetry 98 98 04/10/21 20:00 04/10/21 21:13 04/10/21 23:21 Temperature 97.8 F 97.6 F Pulse Rate 71 65 67 Respiratory Rate 20 20 Blood Pressure 102/42 L 105/44 L Pulse Oximetry 96 97 04/11/21 00:00 04/11/21 00:34 04/11/21 04:00 Temperature 97.6 F Pulse Rate 68 68 Respiratory Rate 20 Blood Pressure 107/50 L Pulse Oximetry 92 93 04/11/21 06:00 Temperature Pulse Rate 66 Respiratory Rate Blood Pressure Pulse Oximetry Intake/Output Intake/Output: Intake & Output 04/08/21 04/09/21 04/10/21 04/11/21 23:59 23:59 23:59 23:59 Intake Total 0 1989 1085 200 Output Total 2004 2900 3000 Balance 642 -005 -2295 200 Meds/Results Medications: Active Medications Generic Name Dose Route Start Last Admin Trade Name Freq PRN Reason Stop Dose Admin Acetaminophen 650 mg 04/07/21 22:28 Acetaminophen 325 Mg Tablet PO Q4H PRN Mild Pain (1-3) or Fever Amiodarone HCl 200 mg 04/08/21 09:00 04/10/21 09:58 Amiodarone Hcl 200 Mg Tablet PO 200 mg DAILY ANGELINE Administration Atorvastatin Calcium 80 mg 04/07/21 21:00 04/10/21 21:13 Atorvastatin 40 Mg Tablet PO 80 mg HS ANGELINE Administration Dextrose 12.5 gm 04/07/21 16:17 Dextrose 50% 25 Gm/50 Ml Syringe IV PUSH PRN PRN Hypoglycemia Protocol Glucagon 1 mg 04/07/21 16:17 Glucagon For Inj 1 Mg Vial IM PRN PRN Hypoglycemia Protocol Glucose 15 gm 04/07/21 16:
--- NOTE | 2021-04-11 08:00 | WPDANESPN ---
Anes - Prog Note Post-Op Date/Time: 04/11/21 08:00 Cardiovascular status: normal Respiratory status: normal Airway patency: baseline Mental status: baseline Post-Op hydration status: normal Vital Signs: Last Vital Signs Temp 36.4 C 04/11/21 04:00 Pulse 66 04/11/21 06:00 Resp 20 04/11/21 04:00 BP 107/50 L 04/11/21 04:00 Pulse Ox 93 04/11/21 04:00 Pain Score (VAS): 2 I/O: Intake & Output 04/10/21 04/11/21 04/11/21 23:59 07:59 15:59 Intake Total 960 200 Balance 960 200 Laboratory Tests 04/11/21 04:31 04/11/21 04:31 04/10/21 04/10/21 04/10/21 11:34 11:45 14:47 WBC RBC Hgb 7.4 L Hct 23.1 L MCV MCH MCHC RDW Plt Count MPV Sodium Potassium Chloride Carbon Dioxide Anion Gap BUN Creatinine Estim Creat Clear Calc Estimated GFR Glucose POC Capillary Glucose 124 H 129 H Calcium Phosphorus Magnesium Albumin 04/10/21 04/10/21 04/11/21 18:04 23:07 04:31 WBC 6.5 RBC 2.42 L Hgb 7.5 L 7.0 L Hct 23.8 L 22.4 L MCV 92.6 MCH 28.9 MCHC 31.3 L RDW 14.7 H Plt Count 199 MPV 11.0 H Sodium Potassium Chloride Carbon Dioxide Anion Gap BUN Creatinine Estim Creat Clear Calc Estimated GFR Glucose POC Capillary Glucose 163 H Calcium Phosphorus Magnesium Albumin 04/11/21 04:31 WBC RBC Hgb Hct MCV MCH MCHC RDW Plt Count MPV Sodium 136 L Potassium 4.3 Chloride 102 Carbon Dioxide 29 Anion Gap 5 L BUN 22 H Creatinine 2.10 H Estim Creat Clear Calc 30 Estimated GFR 31 L Glucose 126 H POC Capillary Glucose Calcium 8.2 L Phosphorus 3.3 Magnesium 2.2 Albumin 2.9 L Post-procedural complaints: none Patient Feedback: Patient satisfied with anesthetic care.
[2021-04-11] MEDS: METOPROLOL TARTRATE 12.5 MG TABLET PO ×2 (09:01→20:21)
[2021-04-11] MEDS: PANTOPRAZOLE 40 MG TABLET PO (09:02)
[2021-04-11] MEDS: SODIUM CHLORIDE 0.9% IV 250 ML 30 ML IV CONT (09:02)
[2021-04-11] MEDS: AMIODARONE HCL 200 MG TABLET PO (09:02)
[2021-04-11] MEDS: TUBING, BLOOD PLUM PUMP TUBING 1 EACH XX (09:02)
--- NOTE | 2021-04-11 10:44 | PM.IMPN ---
Progress Note: A&P Assessment and Plan (1) Anemia: Qualifiers: Anemia type: unspecified type Qualified Code(s): D64.9 - Anemia, unspecified Code(s): D64.9 - Anemia, unspecified Status: Acute Assessment and Plan: Hgb 4.6 on admission. Patient has been having black stools for the past few days prior to admission. Hemoccult positive noted by ED physician. Patient has acute blood loss anemia felt to be GI source. He was recently admitted to another hospital early March with similar complaints and had a colonoscopy with polypectomy. Iron studies from OSH as mentioned above. Endoscopy here with EGD normal and Colonoscopy showing internal hemorrhoids and 2 small polyps. SBFT also normal. Patient has been transfused 3 units of packed red blood cells. Hemoglobin has climbed into the 7-8 range. Hgb at 7.0 today. Will transfuse today. Continue to monitor closely to ensure stability. Continue PT/OT. Start iron. (2) Hyperkalemia: Code(s): E87.5 - Hyperkalemia Status: Acute Assessment and Plan: Potassium 6.5 on admission felt related to his ARB and CKD. ARB and Entresto held. Potassium improved after appropriate treatment and has remained normal. Continue to follow. Try to add back Entresto if/when able. BP soft today so will continue to hold. (3) Acute gastrointestinal bleeding: Code(s): K92.2 - Gastrointestinal hemorrhage, unspecified Status: Acute Assessment and Plan: As above. GI consulted. (4) PVD (peripheral vascular disease): Code(s): I73.9 - Peripheral vascular disease, unspecified Status: Acute Assessment and Plan: Patient has claudication in his toes worse when lying flat. He is known to have severe PVD. Clinically worse today. Resume antiplt therapy today. Check arterial US. (5) ASHD (arteriosclerotic heart disease): Code(s): I25.10 - Atherosclerotic heart disease of [place] coronary artery without angina pectoris Status: Acute Assessment and Plan: Patient with CAD status post recent JULIO at [place] in January 2021 to diagonal and LAD. He presents with GI bleed and profound anemia on Xarelto, ASA and Brilinta. These medications were hold. Spoke with Guitar Teacher who recommended Plavix instead of Brilinta and resume ASA. Patietn has maintained NSR and he recommended holding the Xarelto. Will resume ASA and start Plavix today. Continue Lipitor. (6) Chronic renal failure, stage 3 (moderate): Qualifiers: Chronic kidney disease stage 3 subtype: unspecified whether 3a or 3b Qualified Code(s): N18.30 - Chronic kidney disease, stage 3 unspecified Code(s): N18.30 - Chronic kidney disease, stage 3 unspecified Status: Chronic Assessment and Plan: Creatinine mostly in the 1.9-2.3 range since July. Creatinine was 2.3 on admission and has remained stable. May be difficult to resume Entresto due to the CKD and recurrent hyperkalemia. Continue to follow. (7) Congestive heart failure: Qualifiers: Heart failure chronicity: chronic Heart failure type: unspecified Qualified Code(s): I50.9 - Heart failure, unspecified Code(s): I50.9 - Heart failure, unspecified Status: Acute Assessment and Plan: Suspect acute on chronic systolic and diastolic CHF. Probably related to anemia. CXR showing pulmonary edema with BNP 10K. Lasix 20 mg IV once given 04/07. Excellent UOP since admission with negative fluid balance. Entresto held due to the hyperkalemia. Also on losartan that was confirmed by family. Metoprolol was on hold as well due to soft BP but able to resume low dose metoprolol. Contineu to monitor and add back medications as able. (8) Ischemic cardiomyopathy: Code(s): I25.5 - Ischemic cardiomyopathy Status: Acute Assessment and Plan: Patient with chronic systolic and diastolic dysfunction. EF was 20-25% in Jan 2021 by outside records. Treatment
[2021-04-11] MEDS: FUROSEMIDE INJ 40 MG/4 ML VIAL 20 MG IV PUSH (10:56)
[2021-04-11] MEDS: CLOPIDOGREL BISULFATE 75 MG TABLET PO (10:57)
[2021-04-11] MEDS: ASPIRIN 81 MG CHEWABLE TABLET PO (10:57)
[2021-04-11 11:54] LABS: Folic Acid > 20.0 ng/mL (2.76->20)
[2021-04-11] MEDS: INSULIN ASPART (*BKC) 100 UNITS/ML SUB-Q (12:06)
[2021-04-11] MEDS: FERROUS SULFATE 324 MG TABLET PO ×2 (12:30→18:01)
[2021-04-11 14:36] LABS: Hematocrit 26.4 % (42.0-52.0); Hemoglobin 8.3 g/dL (14.0-18.0)
[2021-04-11 17:54] LABS: Glucose Point of Care 145 mg/dl (65-105)
[2021-04-11 17:54] LABS: Glucose Point of Care 215 mg/dl (65-105)
[2021-04-11] MEDS: ATORVASTATIN 40 MG TABLET 80 MG PO (20:21)
[2021-04-11] MEDS: TAMSULOSIN HCL 0.4 MG CAPSULE PO (20:21)
[2021-04-11 20:54] LABS: Glucose Point of Care 155 mg/dl (65-105)
[2021-04-12] VITALS (9 sets, daily range): BP systolic 112–131; BP diastolic 61–63; PULSE 60–73; RESP 20; TEMP 36.3–36.6; O2SAT 93–97
[2021-04-12 04:56] LABS: Hematocrit 24.4 % (42.0-52.0); Hemoglobin 7.7 g/dL (14.0-18.0); Mean Corpuscular HGB Conc 31.6 g/dl (32-36); Mean Corpuscular Hemoglobin 28.3 pg (26-34); Mean Corpuscular Volume 89.7 fl (80-100); Mean Platelet Volume 11.2 fl (7.4-10.4); Platelet Count Result 213 k/mm3 (150-375); Red Blood Count 2.72 M/mm3 (4.6-6.20); Red Cell Distribution Width 14.7 % (11.5-14.5); White Blood Count 6.9 K/mm3 (4.5-10.0)
[2021-04-12 05:10] LABS: Anion Gap 6 mmol/L (8-16); Blood Urea Nitrogen 23 mg/dL (9-20); Calcium 8.2 mg/dL (8.4-10.2); Carbon Dioxide 28 mmol/L (22-30); Chloride 102 mmol/L (98-107); Estimated CRCL calculation 29 ml/min; Estimated Glomerular Filt Rate 30; Glucose 152 mg/dL (65-110); Sodium 136 mmol/L (137-145)
[2021-04-12] MEDS: PANTOPRAZOLE 40 MG TABLET PO (08:15)
[2021-04-12] MEDS: FERROUS SULFATE 324 MG TABLET PO (08:15)
[2021-04-12] MEDS: CLOPIDOGREL BISULFATE 75 MG TABLET PO (08:15)
[2021-04-12] MEDS: METOPROLOL TARTRATE 12.5 MG TABLET PO (08:16)
[2021-04-12] MEDS: AMIODARONE HCL 200 MG TABLET PO (08:16)
[2021-04-12] MEDS: ASPIRIN 81 MG CHEWABLE TABLET PO (08:17)
[2021-04-12 08:24] LABS: Glucose Point of Care 123 mg/dl (65-105)
--- NOTE | 2021-04-12 13:26 | PM.DS ---
DS: Admitting Diagnosis Discharge Date 04/12/21 Admitting Diagnosis Weakness DS: Discharge Diagnosis Discharge Diagnosis (1) Anemia: Qualifiers: Anemia type: unspecified type Qualified Code(s): D64.9 - Anemia, unspecified Code(s): D64.9 - Anemia, unspecified Status: Acute Assessment and Plan: Hgb was 4.6 on admission. He is on Brilinta/ASA/Xarelto on admission. Patient has been having black stools for the past few days prior to admission. Hemoccult positive noted by ED physician. Patient had an acute blood loss anemia felt to be GI source. He was recently admitted to another hospital early March with similar complaints and had a colonoscopy with polypectomy. Iron studies were reviewed from the OSH. GI consulted and patient underwent EGD that was normal and Colonoscopy showing internal hemorrhoids and 2 small polyps. SBFT also normal. Patient was transfused 5 units of packed red blood cells. Hemoglobin has climbed into the 7-8 range. Started iron. Discussed case with hematology with plans for patient to follow up with him for possible further evaluation. Patient will also need capsule endoscopy after discharge. Discussed with his Executive Talent Acquisition Consultant who recommended continuing ASA but changing to Plavix from Brilinta. Patient has is on Amio and has maintained NSR so he recommended holding Xarelto for now. (2) Hyperkalemia: Code(s): E87.5 - Hyperkalemia Status: Acute Assessment and Plan: Potassium 6.5 on admission felt related to his ARB and CKD. ARB and Entresto held. Potassium improved after appropriate treatment and has remained normal. BP was soft at times so losartan and Entresto held. (3) Acute gastrointestinal bleeding: Code(s): K92.2 - Gastrointestinal hemorrhage, unspecified Status: Acute Assessment and Plan: As above. GI consulted and appreciate thier input. (4) PVD (peripheral vascular disease): Code(s): I73.9 - Peripheral vascular disease, unspecified Status: Acute Assessment and Plan: Patient has claudication in his toes worse when lying flat. He is known to have severe PVD. Arterial US ordered showing Rt PHUC 0.51 and Lt PHUC 0.46 with possible left iliac disease. Please see report for details. History is somewhat difficult to obtain from the patient but he states that he has seen a vascular surgeon in the past with plans to follow-up with him. Plan for discharge home today. Patient to follow-up with vascular surgery as previously scheduled. (5) ASHD (arteriosclerotic heart disease): Code(s): I25.10 - Atherosclerotic heart disease of [place] coronary artery without angina pectoris Status: Acute Assessment and Plan: Patient with CAD status post recent JULIO at [place] in January 2021 to diagonal and LAD. He presents with GI bleed and profound anemia on Xarelto, ASA and Brilinta. These medications were held. Spoke with Executive Talent Acquisition Consultant who recommended Plavix instead of Brilinta and resume ASA. Patient has maintained NSR and he recommended holding the Xarelto. We resumed ASA and started Plavix. We continued Lipitor. (6) Chronic renal failure, stage 3 (moderate): Qualifiers: Chronic kidney disease stage 3 subtype: unspecified whether 3a or 3b Qualified Code(s): N18.30 - Chronic kidney disease, stage 3 unspecified Code(s): N18.30 - Chronic kidney disease, stage 3 unspecified Status: Chronic Assessment and Plan: Creatinine mostly in the 1.9-2.3 range since July. Creatinine was 2.3 on admission and has remained stable. Was difficult to resume Entresto due to the CKD and recurrent hyperkalemia. (7) Congestive heart failure: Qualifiers: Heart failure chronicity: chronic Heart failure type: unspecified Qualified Code(s): I50.9 - Heart failure, unspecified Code(s): I50.9 - Heart failure, unspecified Status: Acute Assessment and Plan: CXR showi
[2021-04-14 07:31] LABS: Red Blood Cell Folate >1000 ng/mL RBC (>280)
--- NOTE | 2021-04-24 13:35 | PC.NURSE ---
Pathology shows hyperplastic polyps. Dr. Greg martin.
== END 2021-04-12 16:30 | disposition home or self-care (01) | DRG 377 ==
LOC: ANHED 12:16 → ANHIMU 12:51
PROVIDERS: Family Medicine; Internal Medicine; Internal Medicine Gastroenterology; Admitting Provider Internal Medicine; Emergency Provider Emergency Medicine; Visit Provider Internal Medicine
PROC: 0DJ08ZZ Inspection of Upper Intestinal Tract, Via Natural or Artificial Opening Endoscopic (ICD-10-PCS; CPT 43235; principal; 2021-04-09 15:15)
PROC: 0DJD8ZZ Inspection of Lower Intestinal Tract, Via Natural or Artificial Opening Endoscopic (ICD-10-PCS; CPT 45378; principal; 2021-04-10 14:30)
DX: K92.2 Gastrointestinal hemorrhage, unspecified (principal); I50.43 Acute on chronic combined systolic (congestive) and diastolic (congestive) heart failure; I13.0 Hypertensive heart and chronic kidney disease with heart failure and stage 1 through stage 4 chronic kidney disease, or unspecified chronic kidney disease; N18.4 Chronic kidney disease, stage 4 (severe); D62 Acute posthemorrhagic anemia; E87.2 Acidosis; E11.22 Type 2 diabetes mellitus with diabetic chronic kidney disease; E11.65 Type 2 diabetes mellitus with hyperglycemia; E87.5 Hyperkalemia; I73.9 Peripheral vascular disease, unspecified; D12.5 Benign neoplasm of sigmoid colon; K64.8 Other hemorrhoids; I25.10 Atherosclerotic heart disease of native coronary artery without angina pectoris; I25.5 Ischemic cardiomyopathy; I48.0 Paroxysmal atrial fibrillation; N40.1 Benign prostatic hyperplasia with lower urinary tract symptoms; J44.9 Chronic obstructive pulmonary disease, unspecified; L40.9 Psoriasis, unspecified; F17.210 Nicotine dependence, cigarettes, uncomplicated; Z95.5 Presence of coronary angioplasty implant and graft; Z79.01 Long term (current) use of anticoagulants; Z79.84 Long term (current) use of oral hypoglycemic drugs; Z86.718 Personal history of other venous thrombosis and embolism; Z86.73 Personal history of transient ischemic attack (TIA), and cerebral infarction without residual deficits; I25.2 Old myocardial infarction
CPT/HCPCS: 36415; 36430; 71045; 74250; 80048; 80053; 80069; 82607; 82746; 82747; 82948; 83036; 83735; 83880; 84484; 85014; 85018; 85025; 85027; 85610; 85730; 86850; 86900; 86901; 86920; 88305; 93005; 93923; 94640; 96365; 96366; 96367; 96375; 97161; 97165; 99285; A9270; C9113; G0378; J0610; J1815; J1940; J2704; J7050; J7060; J7120; P9016

== ENCOUNTER 2021-04-27 07:51 | Inpatient (IN) | payer MEDICARE, SELFPAY ==
[2021-04-27] VITALS (50 sets, daily range): BP systolic 107–166; BP diastolic 56–91; PULSE 53–99; RESP 16–33; TEMP 36.4–37; O2SAT 82–100; BMI 23.3
--- NOTE | ~2021-04-27 | US_ITS ---
EXAMINATION: US venous doppler LE EXAM DATE: 04/27/2021 17:49 INDICATION: Bilateral leg edema. TECHNIQUE: Multiple grayscale, color flow and Doppler images of the lower extremity deep venous syste ms bilaterally were obtained and reviewed. There is no prior study for comparison. FINDINGS: Right side: The right common femoral, femoral and profunda veins demonstrate normal color flow, respi ratory variation, augmentation and compressibility. Compressibility, color flow confirmed within the right popliteal, posterior tibial, peroneal, and greater saphenous veins. Left side: The left common femoral, femoral and profunda veins demonstrate normal color flow, respira tory variation, augmentation and compressibility. Compressibility, color flow confirmed within the l eft popliteal, posterior tibial, peroneal, and greater saphenous veins. IMPRESSION: No lower extremity deep venous thrombosis bilaterally. Reviewed, dictated and finalized at location A. TICE BUILDER
--- NOTE | ~2021-04-27 | XR_ITS ---
EXAMINATION: XR chest 2V DATE: 04/27/2021 08:52 INDICATION: Chest pain and weakness, shortness of breath TECHNIQUE: AP and lateral views of the chest are obtained. COMPARISON: 04/07/2021 FINDINGS: There are small pleural effusions, left greater than right. Cardiomegaly is noted. There is mild diffuse interstitial pattern. There are airspace opacities of the lung bases. No pneumothorax i s identified. There is mild thoracic spondylosis. IMPRESSION: 1. Cardiomegaly with mild pulmonary edema. 2. Small pleural effusions. 3. Bibasilar airspace opacities, consistent with atelectasis versus pneumonia. Reviewed, dictated and finalized at location A. ONAL DRIVER
--- NOTE | 2021-04-27 07:56 | ECG_ITS ---
Measurements Intervals [place] Rate: 94 P: 5 RI: 175 QRS: -71 QRSD: 162 T: 87 QT: 392 QTc: 492 Interpretive Statements SINUS RHYTHM LEFT AXIS DEVIATION POSSIBLE LEFT ATRIAL ENLARGEMENT RIGHT BUNDLE BRANCH BLOCK INFERIOR INFARCT, AGE INDETERMINATE BASELINE ARTIFACT- II, III, AVR, AVL, AVF, V1, V3, V6 ABNORMAL ECG Electronically Signed On 04-27-2021 8:17:46 ELECTRIC SHAVER MECHANIC by Calixto Santa D.O.
[2021-04-27 08:27] LABS: Basophils Absolute Auto 0.1 K/mm3 (0.0-0.1); Basophils Percent Auto 0.7 % (0.2-1.2); Eosinophils Absolute Auto 0.1 K/mm3 (0-0.3); Eosinophils Percent Auto 0.8 % (0-4.4); Hematocrit 35.6 % (42.0-52.0); Hemoglobin 10.2 g/dL (14.0-18.0); INR 1.2; Immature Granulocyte Absolute 0.11 K/mm3 (0.00-0.031); Lymphocytes Absolute Auto 0.44 K/mm3 (0.9-3.2); Lymphocytes Percent Auto 4.1 % (18.3-44.2); Mean Corpuscular HGB Conc 28.7 g/dl (32-36); Mean Corpuscular Volume 97.8 fl (80-100); Monocytes Absolute Auto 0.4 K/mm3 (0.1-0.6); Monocytes Percent Auto 4.1 % (2.6-8.5); Neutrophils Absolute Auto 9.5 K/mm3 (1.3-6.7); Neutrophils Percent Auto 89.3 % (45.5-73.1); Partial Thromboplastin Time 27.9 SECONDS (22.3-36.8); Platelet Count Result 310 k/mm3 (150-375); Prothrombin Time 14.6 Seconds (11.1-14.7); Red Blood Count 3.64 M/mm3 (4.6-6.20); Red Cell Distribution Width 16.3 % (11.5-14.5); White Blood Count 10.7 K/mm3 (4.5-10.0)
[2021-04-27 08:33] LABS: Alanine Aminotransferase 12 U/L (4-50); Albumin Level 3.9 g/dL (3.5-5.1); Alkaline Phosphatase 147 U/L (38-126); Anion Gap 14 mmol/L (8-16); Aspartate Amino Transferase 21 U/L (17-59); Blood Urea Nitrogen 16 mg/dL (9-20); Calcium 8.8 mg/dL (8.4-10.2); Carbon Dioxide 22 mmol/L (22-30); Chloride 100 mmol/L (98-107); Estimated CRCL calculation 34 ml/min; Estimated Glomerular Filt Rate 35; Glucose 216 mg/dL (65-110); Lipase 57 U/L (23-300); Potassium 5.3 mmol/L (3.4-5.0); Sodium 136 mmol/L (137-145)
[2021-04-27 08:45] LABS: Troponin I 0.032 ng/mL (0.000-0.034)
[2021-04-27 09:40] LABS: Anisocytosis 1+ (NORMAL); Platelet Estimate Adequate (Adequate)
[2021-04-27 10:15] LABS: NT Pro B Type Natriuretic Pept 16900 pg/mL (5-100)
[2021-04-27] MEDS: FUROSEMIDE INJ 40 MG/4 ML VIAL IV PUSH ×2 (10:41→21:27)
[2021-04-27] MEDS: ASPIRIN 81 MG CHEWABLE TABLET 324 MG PO (10:43)
--- NOTE | 2021-04-27 11:20 | PC.NURSE ---
Pt attempted to urinate on the side of the bed. Desat to 82% on 4 liters NC. MD martin, RN at bedside. Increased to 5 liters NC, will continue to monitor.
--- NOTE | 2021-04-27 11:26 | ED.SOB ---
HPI - SOB/Dyspnea General Chief Complaint: Shortness of Breath/Dyspnea Stated Complaint: SOB Time Seen by Provider: 04/27/21 09:17 History of Present Illness HPI Narrative: Patient is a 71-year-old male who presents ER with shortness of breath. Worsening over the last couple days but today he is unable to get up and move around to care for himself. Shortness of breath is worse with laying back as well. Endorses increased edema to the legs. He reports she has been compliant with home medications. No fevers or chills or sweats. Denies productive cough. Patient reports she had some chest pressure prior to arrival however once receiving oxygen that discomfort went away. Related Data Home Medications Medication Instructions Recorded Confirmed amiodarone 200 mg PO DAILY 12/15/20 04/18/21 atorvastatin 80 mg PO HS 04/07/21 04/18/21 tamsulosin 0.4 mg PO HS 04/07/21 04/18/21 metoprolol tartrate 50 mg PO HS 04/27/21 Allergies Allergy/AdvReac Type Severity Reaction Status Date / Time Penicillins Allergy Rash,SOB Verified 04/27/21 10:12 Review of Systems Review of Systems: All systems reviewed & are unremarkable except as noted in HPI and below Constitutional: Constitutional: Denies chills, Reports fatigue and Denies fever(s) ENT: Denies nasal congestion and Denies sore throat Cardiovascular: Cardiovascular: Reports chest pain, Denies rapid heart rate and Denies radiating jaw, neck or arm pain Respiratory: Respiratory: Denies cough, Reports dyspnea and Denies wheezing Gastrointestinal: Gastrointestinal: Denies abdominal pain, Denies nausea and Denies vomiting Musculoskeletal: Musculoskeletal: Denies back pain and Denies muscle cramps [facility] Past Medical History Medical History Chronic renal failure, stage 3 (moderate) COPD (chronic obstructive pulmonary disease) DM2 (diabetes mellitus, type 2) DVT (deep venous thrombosis) History of heart attack 07/2020 EF 35% Paroxysmal A-fib Psoriasis PVD (peripheral vascular disease) Tobacco abuse Surgical History Surgical History H/O craniotomy Subdural hematoma S/P arthroscopic surgery of right knee Family History Family History Mother Cerebrovascular accident Diabetes mellitus Father Natural with proved cause Social History Social History Social History: The patient is and has 4 biological children. The patient is a full code. His is the durable power meeting specialist for healthcare. 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 Patient smokes 1 and half packs of cigarettes a day. He denies any alcohol or illicit drugs. Smoking packs per day: 1 Smoking cigarettes per day: 20.0 Years smoked: 51 Smoking pack-years: 51.00 Smoking status: Current every day smoker Second hand tobacco smoke exposure: Yes Alcohol intake: never Drinks per week: 0 Substance use: never Additional living arrangements comments: Gender identity (if verbalized by the patient): Male Sexual Orientation (if Verbalized by the Patient): Straight or Heterosexual Spiritual care concerns: No Exam Narrative: GENERAL: Chronically ill-appearing, well-nourished, and in mild distress. HEAD: Normocephalic, atraumatic. EYES: PERRL and EOMI. ENT: Mucous membranes moist. CHEST: Bibasilar crackles noted. No respiratory distress. HEART: Regular rate and rhythm. Normal peripheral pulses. ABDOMEN: Soft, nontender, nondistended, normal active bowel sounds. EXTREMITIES: Normal range of motion. 2+ edema. SKIN: Warm, dry, no rash. NEURO: Alert and oriented x3. PSYCH: Normal mood and affect. Course Course Emergency Course: Patient becoming more dyspneic. Placed on BiPAP. Tolerating well. Lasix ordered for diuresis. Admit
[2021-04-27 12:06] LABS: Troponin I 0.043 ng/mL (0.000-0.034)
--- NOTE | 2021-04-27 12:43 | PC.NURSE ---
Pt found with bipap removed after attempting to use the urinal by himself. Re-educated on importance of waiting for help and keeping bipap on. Desat to 89% when off bipap, recovered to 100% when replaced
--- NOTE | 2021-04-27 15:00 | PC.NURSE ---
Pt again found taking all monitors, leads, and BIPAP off. Pt remains oriented. Given drink of water. Re-educated on importance of keeping on BIPAP and monitors.
[2021-04-27 15:01] LABS: Troponin I 0.052 ng/mL (0.000-0.034)
--- NOTE | 2021-04-27 15:50 | PM.IMHP ---
H&P: HPI History of Present Illness Date/Time: 04/27/21 15:50 Chief Complaint: Chest pain shortness of breath. Narrative: This is a 71-year-old male with ischemic cardiomyopathy, coronary artery disease, paroxysmal atrial fibrillation, COPD, chronic kidney disease, diabetes, and several other comorbidities who presented to the emergency department earlier today from home for evaluation of shortness of breath and chest pain. He endorses increasing dyspnea on lesser and lesser exertion over the past several days in addition to increasing lower extremity edema. This morning he reports midsternal chest pressure associated with shortness of breath however that resolved within several minutes. Chest x-ray done on arrival today showed cardiomegaly with mild pulmonary edema as well as small pleural effusions and bibasilar airspace opacities consistent with atelectasis versus pneumonia. He was also found to have a mild elevation in his troponin and he is being admitted in this setting. At the time my evaluation he reports diuresing well, says he feels better, and wants to go home tonight. I informed him that he had an oxygen requirement and that is why he is needing to stay however he has continued to threaten to leave against medical advice though as of yet he has stayed. He denies fever, chills, sweats, recurrent chest pain, palpitations, nausea, vomiting, and sweats. He also denies sick contacts and exposure to those positive for COVID 19. Of note the patient was recently admitted to the hospital with anemia for which he had upper and lower endoscopies. EGD was normal and colonoscopy showed internal hemorrhoids and 2 polyps. He received a total of 5 units packed red blood cells during his stay. Given recent cardiac stent placement, case was discussed with his nurse practitioner manager who recommended continuing aspirin and changing from Brilinta to Plavix. His Xarelto was also put on hold. Review of Systems Review of Systems: Twelve systems were reviewed. No syncope or near syncope. He denies cold and flu symptoms. He denies cough. No diarrhea or dysuria. Except as documented, all other systems were reviewed and are negative. [facility] Past Medical History Medical History Chronic renal failure, stage 3 (moderate) COPD (chronic obstructive pulmonary disease) DM2 (diabetes mellitus, type 2) DVT (deep venous thrombosis) History of heart attack 07/2020 EF 35% Paroxysmal A-fib Psoriasis PVD (peripheral vascular disease) Tobacco abuse Surgical History Surgical History H/O craniotomy Subdural hematoma S/P arthroscopic surgery of right knee Family History Family History Mother Cerebrovascular accident Diabetes mellitus Father Natural with proved cause Social History Social History Social History: The patient is and has 4 biological children. The patient is a full code. His is the durable power animal scientist for healthcare. 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 Patient smokes 1 and half packs of cigarettes a day. He denies any alcohol or illicit drugs. Smoking packs per day: 1 Smoking cigarettes per day: 20.0 Years smoked: 51 Smoking pack-years: 51.00 Smoking status: Current every day smoker Tobacco type: cigarettes Second hand tobacco smoke exposure: Yes Alcohol intake: never Drinks per week: 0 Substance use: never Substance use type: does not use Additional living arrangements comments: Gender identity (if verbalized by the patient): Male Sexual Orientation (if Verbalized by the Patient): Straight or Heterosexual Spiritual care concerns: No Meds Home Medications and Allergies Home Medications Medication Instructions Recorded Confirmed Type aspirin 81 mg PO QAM
--- NOTE | 2021-04-27 16:40 | PC.NURSE ---
Pt states he wants to leave against medical advice. When told that he could possibly if he goes home without treatment he stated i dont care i'll take my chances Provider notified. called and she said she would attempt to talk to him about staying. States that she will not come pick him up.
--- NOTE | 2021-04-27 17:02 | PC.NURSE ---
Pt refusing bipap at this time. 96-98% on room air
--- NOTE | 2021-04-27 19:12 | PC.NURSE ---
PT had removed pulse oximetry. Vitals obtained and pt 82% on room air. Pt states he just wants to go home. Pt told that he could likely if he goes home with his oxygen that low. Pt states thats fine with me. Pt refusing to put Bipap back on at this time but is tolerating 5L by nasal cannula. provider notified.
--- NOTE | 2021-04-27 19:25 | PC.NURSE ---
Spoke with patients . Per provider she can come and be with him even though he has a covid test pending. She states she hasnt slept in a few days taking care of him so she is going to try to get some sleep then may come up early tomorrow morning.
[2021-04-27 19:26] LABS: SARS-CoV-2 RNA PCR Negative
[2021-04-27 19:41] LABS: Alveolar/Arterial O2 Gradient 176.4 mmHg; Carboxyhemoglobin 0.7 % THb (0-2.0); Device NASAL CANNULA; Fractional Inspired Oxygen 40 %; HCO3 ABG 25.5 mEq/l (22.0-26.0); Methemoglobin ABG 0.1 %THb (0-1.5); Modified Allen's Test Pass; Oxygen Content ABG 12.4 %vol (16.0-22.0); Oxygen Saturation ABG 92.6 % (95.0-100.0); Oxyhemoglobin 90.5 % THb (90.0-100.0); PCO2 ABG 39.9 mmHg (35.0-45.0); PO2 ABG 62.9 mmHg (80.0-100.0); PO2 FiO2 Ratio Arterial Blood 1.57 %; Reduced Hemoglobin 8.7 %THb (0-5.0); Site Drawn LEFT RADIAL; Total Hemoglobin 9.7 g/dL (12.0-18.0); pH ABG 7.423 (7.350-7.450)
--- NOTE | 2021-04-27 22:05 | ADMGEN ---
This patient, Giovanni Drew, was admitted to IMU Room 210-01 at 2200. Patient/family oriented to hospital policies and general routines including ID bracelet, bed and alarms, visiting hours, pain management, procedures, bathroom and other care routines, personal items, smoking policy, room service/diet, and visiting hours. Information on how to activate the Rapid Response Team has been discussed. Patient/Family are encouraged to report perceived risks to care and to ask questions if they do not understand what they are told or what they should do.
[2021-04-28] VITALS (14 sets, daily range): BP systolic 104–129; BP diastolic 53–66; PULSE 55–79; RESP 16–100; TEMP 36.2–37.2; O2SAT 90–100
[2021-04-28 05:07] LABS: Hemoglobin 9.1 g/dL (14.0-18.0); Mean Corpuscular HGB Conc 29.4 g/dl (32-36); Mean Corpuscular Hemoglobin 28.5 pg (26-34); Mean Corpuscular Volume 97.2 fl (80-100); Mean Platelet Volume 9.9 fl (7.4-10.4); Platelet Count Result 258 k/mm3 (150-375); Red Blood Count 3.19 M/mm3 (4.6-6.20); Red Cell Distribution Width 16.6 % (11.5-14.5); White Blood Count 7.1 K/mm3 (4.5-10.0)
[2021-04-28 05:21] LABS: Alanine Aminotransferase 8 U/L (4-50); Albumin Level 3.1 g/dL (3.5-5.1); Alkaline Phosphatase 113 U/L (38-126); Anion Gap 5 mmol/L (8-16); Aspartate Amino Transferase 17 U/L (17-59); Bilirubin,Total 0.7 mg/dL (0.2-1.3); Blood Urea Nitrogen 19 mg/dL (9-20); Calcium 8.3 mg/dL (8.4-10.2); Carbon Dioxide 31 mmol/L (22-30); Chloride 101 mmol/L (98-107); Estimated CRCL calculation 32 ml/min; Estimated Glomerular Filt Rate 31; Glucose 117 mg/dL (65-110); Potassium 4.4 mmol/L (3.4-5.0); Sodium 137 mmol/L (137-145)
[2021-04-28] MEDS: PANTOPRAZOLE 40 MG TABLET PO (09:41)
[2021-04-28] MEDS: AMIODARONE HCL 200 MG TABLET PO (09:41)
[2021-04-28] MEDS: FERROUS SULFATE 324 MG TABLET PO ×2 (09:42→17:26)
[2021-04-28] MEDS: ASPIRIN 81 MG ENTERIC TABLET PO (09:42)
[2021-04-28] MEDS: CLOPIDOGREL BISULFATE 75 MG TABLET PO (09:42)
[2021-04-28] MEDS: FUROSEMIDE INJ 40 MG/4 ML VIAL IV PUSH ×2 (09:43→20:19)
--- NOTE | 2021-04-28 10:02 | PM.IMPN ---
Progress Note: A&P Assessment and Plan (1) CHF exacerbation: Qualifiers: Heart failure type: systolic Qualified Code(s): I50.23 - Acute on chronic systolic (congestive) heart failure Code(s): I50.9 - Heart failure, unspecified Status: Acute Assessment and Plan: GOOD DIURESIS CONTINUE FUROSEMIDE IV 40MG BID 04/28 CREATININE STABLE AT 2.1 (2) Acute respiratory failure with hypoxia: Code(s): J96.01 - Acute respiratory failure with hypoxia Status: Acute Assessment and Plan: CLINICALLY DUE TO CHF (3) Elevated troponin: Code(s): R77.8 - Other specified abnormalities of plasma proteins Status: Acute Assessment and Plan: Patient reports a brief episode of chest discomfort earlier today but that was self-limiting and is not returned. Troponin was mildly elevated will be trended to peak. Continue aspirin, Plavix, beta-faviola, and statin. (4) Type 2 diabetes mellitus with hyperglycemia: Qualifiers: Diabetes mellitus longterm insulin use: without medical terminologist use Qualified Code(s): E11.65 - Type 2 diabetes mellitus with hyperglycemia Code(s): E11.65 - Type 2 diabetes mellitus with hyperglycemia Status: Acute Assessment and Plan: Recent hemoglobin A1c was 5.3%. ON SSI 04/28 AM BS 117 (5) Hyperkalemia: Code(s): E87.5 - Hyperkalemia Status: Acute Assessment and Plan: This should improve with diuresis and will be monitored. (6) Paroxysmal atrial fibrillation: Code(s): I48.0 - Paroxysmal atrial fibrillation Status: Acute Assessment and Plan: Xarelto he has been on hold his recent hospitalization (7) Tobacco dependence: Code(s): F17.200 - Nicotine dependence, unspecified, uncomplicated Status: Acute Assessment and Plan: NOT INTERESTED IN QUITTING (8) Chronic kidney disease: Qualifiers: Chronic kidney disease stage: stage 4 (severe) Qualified Code(s): N18.4 - Chronic kidney disease, stage 4 (severe) Code(s): N18.9 - Chronic kidney disease, unspecified Status: Acute Assessment and Plan: Monitor renal function while diuresing. Subjective Date/time seen: 04/28/21 10:02 Interval history: 04/28 visit: [facility] with any exertion. Generalized weakness. Does not wear home oxygen. Chronic poor appetite. Review of Systems Review of Systems: All systems reviewed & are unremarkable except as noted in HPI and below Exam Narrative: HEENT: PERRL, sclerae nonicteric, pharyngeal mucosa pink and intact NECK: No JVD, adenopathy, or thyromegaly CHEST: BILATERAL LL CRACKLES WITH DECREASED BS AT BASES HEART: NL S1/S2, regular, no murmur ABDOMEN: BS+, soft, nontender, no mass, no bruits EXTREMITIES: No cyanosis, 1+ PITTING ANKLE EDEMA NEUROLOGIC: CN intact and symmetric to inspection. MUSCULOSKELETAL: Tone and strength symmetric. PSYCH: Alert. Oriented to person, place, and time. Objective Data Vital Signs Vital Signs: Vital Signs - 24 hr 04/27/21 10:18 04/27/21 10:30 04/27/21 10:33 Temperature Pulse Rate 83 80 82 Respiratory Rate 28 H 24 H 29 H Blood Pressure 153/80 H Pulse Oximetry 94 93 04/27/21 10:43 04/27/21 10:45 04/27/21 11:00 Temperature Pulse Rate 81 84 89 Respiratory Rate 28 H 30 H 30 H Blood Pressure 153/80 H 161/90 H Pulse Oximetry 93 95 97 04/27/21 11:02 04/27/21 11:17 04/27/21 11:20 Temperature Pulse Rate 88 89 91 Respiratory Rate 19 20 Blood Pressure Pulse Oximetry 97 82 L 04/27/21 11:21 04/27/21 11:23 04/27/21 11:30 Temperature Pulse Rate 87 83 Respiratory Rate 30 H 29 H Blood Pressure Pulse Oximetry 83 L 84 L 86 L 04/27/21 11:40 04/27/21 11:46 04/27/21 11:50 Temperature Pulse Rate 77 76 Respiratory Rate 26 H 24 H 25 H Blood Pressure 134/72 Pulse Oximetry 94 98 100 04/27/21 11:51 04/27/21 12:00 04/27/21 12:01 Temperature Pulse
[2021-04-28 13:09] LABS: Glucose Point of Care 167 mg/dl (65-105)
--- NOTE | 2021-04-28 13:56 | PM.CNCAR ---
Assessment and Plan Additional Plan This is a 71-year-old man with the above detailed history of coronary disease and a severe ischemic cardiomyopathy. He underwent optimal revascularization at [facility] within the last couple of months and from that respect seems to be doing better. There was some improvement in his ejection fraction to something like 25% or so after revascularization. He is only taking metoprolol for heart failure at this time. He had previously been anticoagulated with Xarelto which has been stopped because he is in sinus rhythm and was having hemorrhagic complications of triple therapy. At this time I am going to recommend trying to start some Entresto for his severe cardiomyopathy. For the moment I will keep him on intravenous furosemide. I would be tempted when he is euvolemic to transition him to spironolactone. Hopefully we can help him feel better with advancing his heart failure medications. I would think we all need to anticipate a rise in his azotemia with creatinine levels when we advanced his heart failure medications. This will have to be accepted as the necessary result in treating his shortness of breath. Patient understands his prognosis is poor and as mentioned above is not interested in a defibrillator device. Jose A Gray MD [facility] History of Present Illness History of Present Illness Consult date/time: 04/28/21 13:56 Consult reason: chest pain and congestive heart failure Reason For Visit: CHF exacerbation/covid pui/respiratory failure Narrative: This is a 71-year-old man who I know from outpatient follow-up in previous care here at [facility] who has a severe ischemic cardiomyopathy. The patient is being seen today in consultation at the request of the hospitalist. He came into the emergency department yesterday because of some worsening shortness of breath. He is known to have a severe ischemic cardiomyopathy and was diagnosed in the the but the July of this year when he presented here with upper respiratory distress. In the emergency room it was initially felt that he had vomited and aspirated however his electrocardiogram demonstrated some diffuse T-wave inversions in a significant rise in his troponin level. He was found have significant LV systolic dysfunction and had an ejection fraction of about 35%. Catheterization was discussed but was delayed because of acute renal insufficiency during the 1st hospitalization his creatinine avinash to a high of about 3.9 I believe. M he was treated medically and finally brought for catheterization in the summer found to have severe three-vessel coronary disease with high-grade stenosis in the proximal and mid LAD, total occlusion of the right coronary artery with collateral filling as well as a moderate stenosis in the 1st OM branch of his circumflex. He was felt to be of course a very high-risk candidate for revascularization. His ejection fraction at the time of catheterization had dropped to about 15%. He was referred over to [facility] where he underwent high-risk percutaneous Impella assisted revascularization with stenting of the proximal and mid LAD. 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 The procedure was challenging and difficult but otherwise angiographically successful. The patient was seen in our office by my nurse practitioner as recently as last week and at that time was complaining mostly about chronic back and lower extremity pain. He was becoming belligerent in the office in agitated refusing to wear his mask which was office and hospital policy. He had worsening of his lower extremity edema and shortness of breath since then and was brought into the emergency room last evening by the family. His chest x-ray demonstrates a moderate size left pleural effusion and he does have moderate lower extremity edema. He is not reporting any significant chest pain and in th
[2021-04-28 19:36] LABS: Glucose Point of Care 163 mg/dl (65-105)
[2021-04-28] MEDS: ATORVASTATIN 40 MG TABLET 80 MG PO (20:19)
[2021-04-28] MEDS: SACUBITRIL/VALSARTAN 24-26 MG TABLET 1 TAB PO (20:19)
[2021-04-28] MEDS: TAMSULOSIN HCL 0.4 MG CAPSULE PO (20:20)
[2021-04-28 21:16] LABS: Glucose Point of Care 133 mg/dl (65-105)
--- NOTE | 2021-04-28 22:58 | ADMGEN ---
This patient, Giovanni Drew, was admitted to IMU Room 210-. Patient/family oriented to hospital policies and general routines including ID bracelet, bed and alarms, visiting hours, pain management, procedures, bathroom and other care routines, personal items, smoking policy, room service/diet, and visiting hours. Information on how to activate the Rapid Response Team has been discussed. Patient/Family are encouraged to report perceived risks to care and to ask questions if they do not understand what they are told or what they should do.
--- NOTE | 2021-04-28 23:06 | PC.NURSE ---
This patient, Giovanni Drew, was transferred to [[id number] ] on 04/28/21 at 2250. Personal belongings sent with patient. Report given to [Carlo ]. Appropriate documentation sent with patient.
[2021-04-29] VITALS (7 sets, daily range): BP systolic 98–104; BP diastolic 31–55; PULSE 54–70; RESP 16–18; TEMP 36.3–36.6; O2SAT 93–97
[2021-04-29 07:40] LABS: Anion Gap 6 mmol/L (8-16); Blood Urea Nitrogen 20 mg/dL (9-20); Calcium 8.1 mg/dL (8.4-10.2); Carbon Dioxide 33 mmol/L (22-30); Chloride 97 mmol/L (98-107); Estimated CRCL calculation 32 ml/min; Estimated Glomerular Filt Rate 31; Glucose 136 mg/dL (65-110); Potassium 3.9 mmol/L (3.4-5.0); Sodium 136 mmol/L (137-145)
[2021-04-29 08:44] LABS: Glucose Point of Care 129 mg/dl (65-105)
[2021-04-29] MEDS: FERROUS SULFATE 324 MG TABLET PO ×2 (08:53→16:54)
[2021-04-29] MEDS: ASPIRIN 81 MG ENTERIC TABLET PO (08:53)
[2021-04-29] MEDS: PANTOPRAZOLE 40 MG TABLET PO (08:53)
[2021-04-29] MEDS: CLOPIDOGREL BISULFATE 75 MG TABLET PO (08:53)
[2021-04-29] MEDS: FUROSEMIDE INJ 40 MG/4 ML VIAL IV PUSH (08:54)
[2021-04-29] MEDS: SACUBITRIL/VALSARTAN 24-26 MG TABLET 1 TAB PO ×2 (08:54→21:29)
[2021-04-29] MEDS: AMIODARONE HCL 200 MG TABLET PO (08:54)
[2021-04-29 11:35] LABS: Glucose Point of Care 190 mg/dl (65-105)
--- NOTE | 2021-04-29 12:17 | PM.PNCARD ---
Progress Note: A&P Additional Plan 71-year-old man with: Severe ischemic cardiomyopathy. His LV function is actually somewhat better following revascularization of his LAD as detailed above. Still very low ejection fraction and not surprisingly developed recurrent CHF. He has been diuresed now effectively and started Entresto yesterday. We will transition him to oral furosemide today. Would hope to be able to discharge him within the next 24-48 hours. As I mentioned above I would go through every effort to continue his Entresto as his will be very effective for his LV function I do expect him to become a bit more azotemic but this should not be an immediate reason to discontinue affective treatment of his cardiomyopathy. Jose A Gray MD [facility] Subjective Date/time seen: Date of service: 04/29/21 12:17 Interval history: Follow-up visit in this 71-year-old man with: Severe ischemic cardiomyopathy status post high risk LAD PCI several months ago at [facility]. This was an Impella assisted procedure because of very poor LV function. He also has history of paroxysmal atrial fibrillation desires no aggressive cardiac procedures any further and does not wish to have a defibrillator implanted. He entered the hospital last week with volume overload/CHF. He has been diuresed with IV furosemide and appears to be essentially euvolemic today. I started him yesterday on some Entresto which hopefully he will tolerate. We must not discontinued the medication because of the symptomatic hypotension and we must be willing to accept some increase in azotemia in order to effectively treat his heart failure. Exam Const: General: comfortable and no acute distress Other: Appears to be more comfortable resting in bed head of the bed is elevated at about 45? watching television. HENMT: Mouth: Yes dry mucous membranes Eyes: Sclera: sclerae normal Neck: Neck: supple Other: No significant venous distention at this time Resp: Effort & Inspection: normal respiratory effort Other: Dull at the left base, no rales Cardio: Rate: regular rate Rhythm: regular rhythm Other: PMI is enlarged and laterally displaced GI: GI Palp: Yes Soft to palpation Auscultation: normal bowel sounds Neuro: Cognition (Neuro): normal cognition Extrem: Other: Lower extremity edema is trivial at this time Objective Data Vital Signs Vital Signs: Vital Signs - 24 hr 04/28/21 14:00 04/28/21 16:00 04/28/21 18:00 Temperature 37.2 C Pulse Rate 62 79 68 Respiratory Rate 28 H Blood Pressure 129/59 L Pulse Oximetry 99 04/28/21 20:00 04/28/21 20:21 04/28/21 23:00 Temperature 36.6 C 36.5 C Pulse Rate 60 66 Respiratory Rate 100 H 16 Blood Pressure 104/53 L 110/55 L Pulse Oximetry 100 99 98 04/29/21 00:00 04/29/21 04:00 04/29/21 06:00 Temperature 36.6 C Pulse Rate 56 L 54 L 70 Respiratory Rate 16 Blood Pressure 104/55 L Pulse Oximetry 97 04/29/21 08:54 04/29/21 09:00 Temperature Pulse Rate 70 Respiratory Rate Blood Pressure Pulse Oximetry 97 Intake/Output Intake/Output: Intake & Output 04/26/21 04/27/21 04/28/21 04/29/21 23:59 23:59 23:59 23:59 Intake Total 2120 540 Output Total 800 3550 1000 Balance -800 -1430 -460 Meds/Results Medications: Active Medications Generic Name Dose Route Start Last Admin Trade Name Freq PRN Reason Stop Dose Admin Acetaminophen 650 mg 04/27/21 11:21 Acetaminophen 325 Mg Tablet PO Q4H PRN Mild Pain (1-3) or Fever Amiodarone HCl 200 mg 04/28/21 08:00 04/29/21 08:54 Amiodarone Hcl 200 Mg Tablet PO 200 mg DAILY@0800 ANGELINE Administration Aspirin 81 mg 04/28/21 09:00 04/29/21 08:53 Aspirin 81 Mg Enteric Tablet PO 81 mg QAM ANGELINE Administration Atorvastatin Calcium 80 mg 04/28/21 21:00 04/28/21 20:19 Atorvastatin 40 Mg Tablet PO 80 mg HS ANGELINE Administration Clopidogrel Bisulfate 75 mg 04/28/21 09:00 04/29/21 08:53
--- NOTE | 2021-04-29 15:19 | PM.IMPN ---
Progress Note: A&P Assessment and Plan (1) CHF exacerbation: Qualifiers: Heart failure type: systolic Qualified Code(s): I50.23 - Acute on chronic systolic (congestive) heart failure Code(s): I50.9 - Heart failure, unspecified Status: Acute Assessment and Plan: GOOD DIURESIS CONTINUE FUROSEMIDE IV 40MG BID 04/28 ENTRESTO ADDED 04/28 CREATININE STABLE AT 2.1 04/29 CREATININE STABLE AT 2.1 (2) Acute respiratory failure with hypoxia: Code(s): J96.01 - Acute respiratory failure with hypoxia Status: Acute Assessment and Plan: CLINICALLY DUE TO CHF (3) Elevated troponin: Code(s): R77.8 - Other specified abnormalities of plasma proteins Status: Acute Assessment and Plan: Patient reports a brief episode of chest discomfort earlier today but that was self-limiting and is not returned. Troponin was mildly elevated will be trended to peak. Continue aspirin, Plavix, beta-faviola, and statin. (4) Type 2 diabetes mellitus with hyperglycemia: Qualifiers: Diabetes mellitus long-term insulin use: without long-term use Qualified Code(s): E11.65 - Type 2 diabetes mellitus with hyperglycemia Code(s): E11.65 - Type 2 diabetes mellitus with hyperglycemia Status: Acute Assessment and Plan: Recent hemoglobin A1c was 5.3%. ON SSI 04/28 AM BS 117, 04/29 136 (5) Hyperkalemia: Code(s): E87.5 - Hyperkalemia Status: Acute Assessment and Plan: RESOLVED (6) Paroxysmal atrial fibrillation: Code(s): I48.0 - Paroxysmal atrial fibrillation Status: Acute Assessment and Plan: Xamariusz he has been on hold since his recent hospitalization (7) Tobacco dependence: Code(s): F17.200 - Nicotine dependence, unspecified, uncomplicated Status: Acute Assessment and Plan: NOT INTERESTED IN QUITTING (8) Chronic kidney disease: Qualifiers: Chronic kidney disease stage: stage 4 (severe) Qualified Code(s): N18.4 - Chronic kidney disease, stage 4 (severe) Code(s): N18.9 - Chronic kidney disease, unspecified Status: Acute Assessment and Plan: Monitor renal function while diuresing. Subjective Date/time seen: 04/29/21 15:19 Interval history: 04/29 visit: Less VEL[place]ZQUEZ with any exertion. Legs still swollen. Generalized weakness. Does not wear home oxygen. Chronic poor appetite. Review of Systems Review of Systems: All systems reviewed & are unremarkable except as noted in HPI and below Exam Narrative: HEENT: PERRL, sclerae nonicteric, pharyngeal mucosa pink and intact NECK: No JVD, adenopathy, or thyromegaly CHEST: BILATERAL LL CRACKLES WITH DECREASED BS AT BASES HEART: NL S1/S2, regular, no murmur ABDOMEN: BS+, soft, nontender, no mass, no bruits EXTREMITIES: No cyanosis, 1+ PITTING ANKLE EDEMA NEUROLOGIC: CN intact and symmetric to inspection. MUSCULOSKELETAL: Tone and strength symmetric. PSYCH: Alert. Oriented to person, place, and time. Objective Data Vital Signs Vital Signs: Vital Signs - 24 hr 04/28/21 16:00 04/28/21 18:00 04/28/21 20:00 Temperature 98.9 F 98 F Pulse Rate 79 68 60 Respiratory Rate 28 H 100 H Blood Pressure 129/59 L 104/53 L Pulse Oximetry 99 100 04/28/21 20:21 04/28/21 23:00 04/29/21 00:00 Temperature 97.7 F Pulse Rate 66 56 L Respiratory Rate 16 Blood Pressure 110/55 L Pulse Oximetry 99 98 04/29/21 04:00 04/29/21 06:00 04/29/21 08:54 Temperature 97.8 F Pulse Rate 54 L 70 70 Respiratory Rate 16 Blood Pressure 104/55 L Pulse Oximetry 97 04/29/21 09:00 04/29/21 14:00 Temperature 97.4 F L Pulse Rate 67 Respiratory Rate 18 Blood Pressure 98/31 L Pulse Oximetry 97 97 Intake/Output Intake/Output: Intake & Output 04/26/21 04/27/21 04/28/21 04/29/21 23:59 23:59 23:59 23:59 Intake Total 2120 780 Output Total 800 3550 1000 Balance -800 -1430 -220 Meds/R
[2021-04-29 16:38] LABS: Glucose Point of Care 135 mg/dl (65-105)
[2021-04-29 21:08] LABS: Glucose Point of Care 209 mg/dl (65-105)
[2021-04-29] MEDS: ATORVASTATIN 40 MG TABLET 80 MG PO (21:28)
[2021-04-29] MEDS: TAMSULOSIN HCL 0.4 MG CAPSULE PO (21:30)
[2021-04-30] VITALS: BP 114/46; PULSE 66; RESP 18; TEMP 36.6; O2SAT 93
[2021-04-30 08:00] VITALS: BP 112/50; PULSE 72; RESP 18; TEMP 36.1; O2SAT 98
[2021-04-30 08:36] LABS: Glucose Point of Care 116 mg/dl (65-105)
--- NOTE | 2021-04-30 08:59 | PM.PNCARD ---
Progress Note: A&P Additional Plan 71-year-old man with severe ischemic cardiomyopathy as detailed above. Also with history of paroxysmal AFib quiescent in sinus rhythm on amiodarone treatment. The patient is in a state of reasonable compensation at this time regarding his congestive heart failure. He has minimal if any persistent lower extremity edema. He is on oral furosemide and Entresto has been added to his medical regimen. In my opinion he is a reasonable/good candidate for discharge today. I will arrange for short interval follow-up in my office. His BMP will after be followed closely regarding his renal insufficiency. Jose A Gray MD [facility] Subjective Date/time seen: Date of service: 04/30/21 08:59 Interval history: Follow-up visit in this 71-year-old man with: Severe ischemic cardiomyopathy status post high risk PCI to the LAD several months ago also with history of paroxysmal atrial fib maintaining in sinus rhythm with amiodarone treatment. Patient was hospitalized with a decompensation in heart failure. He is feeling much better this morning after being diuresed with furosemide. Entresto has been added to his medical regimen as well. He also has significant chronic kidney disease. Exam Const: General: comfortable and no acute distress HENMT: Mouth: Yes dry mucous membranes Eyes: Sclera: sclerae normal Pupils: Equal, round and reactive pupils present Neck: Neck: supple and no JVD Resp: Effort & Inspection: normal respiratory effort Other: Some dullness persists at the left base otherwise no rales Cardio: Rate: regular rate Rhythm: regular rhythm Other: PMI enlarged and laterally displaced GI: GI Palp: Yes Soft to palpation Auscultation: normal bowel sounds Skin: General skin exam: normal color Neuro: Cognition (Neuro): normal cognition Extrem: Other: Peripheral edema is now minimal Objective Data Vital Signs Vital Signs: Vital Signs - 24 hr 04/29/21 09:00 04/29/21 14:00 04/29/21 20:20 Temperature 36.3 C L Pulse Rate 67 66 Respiratory Rate 18 18 Blood Pressure 98/31 L Pulse Oximetry 97 97 93 04/30/21 00:00 04/30/21 08:00 Temperature 36.6 C 36.1 C L Pulse Rate 66 72 Respiratory Rate 18 18 Blood Pressure 114/46 L 112/50 L Pulse Oximetry 93 98 Intake/Output Intake/Output: Intake & Output 12/03/0804/28/21 04/29/21 04/30/21 23:59 23:59 23:59 23:59 Intake Total 2120 1020 1050 Output Total 820 4751 8122 Balance -997 -0723 -1203 1050 Meds/Results Medications: Active Medications Generic Name Dose Route Start Last Admin Trade Name Freq PRN Reason Stop Dose Admin Acetaminophen 650 mg 04/27/21 11:21 Acetaminophen 325 Mg Tablet PO Q4H PRN Mild Pain (1-3) or Fever Amiodarone HCl 200 mg 04/28/21 08:00 04/29/21 08:54 Amiodarone Hcl 200 Mg Tablet PO 200 mg DAILY@0800 ANGELINE Administration Aspirin 81 mg 04/28/21 09:00 04/29/21 08:53 Aspirin 81 Mg Enteric Tablet PO 81 mg QAM ANGELINE Administration Atorvastatin Calcium 80 mg 04/28/21 21:00 04/29/21 21:28 Atorvastatin 40 Mg Tablet PO 80 mg HS ANGELINE Administration Clopidogrel Bisulfate 75 mg 04/28/21 09:00 04/29/21 08:53 Clopidogrel Bisulfate 75 Mg Tablet PO 75 mg QAM ANGELINE Administration Dextrose 12.5 gm 04/27/21 23:35 Dextrose 50% 25 Gm/50 Ml Syringe IV PUSH PRN PRN Hypoglycemia Protocol Ferrous Sulfate 324 mg 04/28/21 08:00 04/29/21 16:54 Ferrous Sulfate 324 Mg Tablet PO 324 mg BIDWM ANGELINE Administration Furosemide 40 mg 04/30/21 09:00 Furosemide 40 Mg Tablet PO DAILY ANGELINE Glucagon 1 mg 04/27/21 23:35 Glucagon For Inj 1 Mg Vial IM PRN PRN Hypoglycemia Protocol Glucose 15 gm 04/27/21 23:35 Glucose Oral Gel 15 Gm Of Glucse In 37.5 Gm Tube PO PRN PRN Hypoglycemia Protocol Dextrose 1,000 mls @ 100 mls/hr 04/27/21 23:35 Dextrose 5% 1,000 Ml IVPB PRN PRN Hypogly
--- NOTE | 2021-04-30 09:00 | PM.DS ---
DS: Admitting Diagnosis Discharge Date Date of service 04/30/2021 at 0900 Admitting Diagnosis CHF exacerbation DS: Discharge Diagnosis Discharge Diagnosis (1) CHF exacerbation: Qualifiers: Heart failure type: systolic Qualified Code(s): I50.23 - Acute on chronic systolic (congestive) heart failure Code(s): I50.9 - Heart failure, unspecified Status: Acute Assessment and Plan: GOOD DIURESIS CONTINUE FUROSEMIDE IV 40MG BID 04/28 ENTRESTO ADDED 04/28 CREATININE STABLE AT 2.1 04/29 CREATININE STABLE AT 2.1 (2) Acute respiratory failure with hypoxia: Code(s): J96.01 - Acute respiratory failure with hypoxia Status: Acute Assessment and Plan: CLINICALLY DUE TO CHF (3) Elevated troponin: Code(s): R77.8 - Other specified abnormalities of plasma proteins Status: Acute Assessment and Plan: Patient reports a brief episode of chest discomfort earlier today but that was self-limiting and is not returned. Troponin was mildly elevated will be trended to peak. Continue aspirin, Plavix, beta-faviola, and statin. (4) Type 2 diabetes mellitus with hyperglycemia: Qualifiers: Diabetes mellitus group home insulin use: without group home use Qualified Code(s): E11.65 - Type 2 diabetes mellitus with hyperglycemia Code(s): E11.65 - Type 2 diabetes mellitus with hyperglycemia Status: Acute Assessment and Plan: Recent hemoglobin A1c was 5.3%. ON SSI 04/28 AM BS 117, 04/29 136 (5) Hyperkalemia: Code(s): E87.5 - Hyperkalemia Status: Acute Assessment and Plan: RESOLVED (6) Paroxysmal atrial fibrillation: Code(s): I48.0 - Paroxysmal atrial fibrillation Status: Acute Assessment and Plan: Xarelto he has been on hold since his recent hospitalization (7) Tobacco dependence: Code(s): F17.200 - Nicotine dependence, unspecified, uncomplicated Status: Acute Assessment and Plan: NOT INTERESTED IN QUITTING (8) Chronic kidney disease: Qualifiers: Chronic kidney disease stage: stage 4 (severe) Qualified Code(s): N18.4 - Chronic kidney disease, stage 4 (severe) Code(s): N18.9 - Chronic kidney disease, unspecified Status: Acute Assessment and Plan: Monitor renal function while diuresing. DS: Summary Hospital Course Hospital Course: Patient is a 71-year-old male with a past medical history of AFib, anemia, BPH who presented to the ED with increased shortness of breath and chest pain. Since admission patient has been seen by Cardiology. Patient is noted to have a very low EF and does not want any kind of cardiac treatment at this time. Patient was treated with IV Lasix and Entresto. Urine output was monitored and laboratory work. Renal function has increased however patient has been stable since admission. Patient does exhibit chronic anemia however is on ferrous sulfate at home. Cardiology is aware that the patient does get a little hypotensive with current medication regimen however patient will need these medications for affective stability. Patient has also been treated with oxygen however patient does not wear oxygen at home. Patient has no issues with eating and has had a good appetite since admission. Patient denies urinary dysfunction and states that his leg swelling is the best it has been. Patient does get short of breath with activity. Patient still currently smokes at home however he did state that after discharge he is not going to smoke. Education was provided to the patient about smoking for roughly 15 minutes. Patient declined patches or smoking cessation medication at this time. Patient currently has no chest pain, shortness of breath, sweats, fevers, chills. Patient said he is doing okay. Cardiology has recommended discharge with an early follow-up in the office. Patient is aware that he is going to have new medications to take
[2021-04-30 09:22] LABS: Basophils Absolute Auto 0.1 K/mm3 (0.0-0.1); Eosinophils Absolute Auto 0.4 K/mm3 (0-0.3); Hematocrit 28.9 % (42.0-52.0); Hemoglobin 8.7 g/dL (14.0-18.0); Immature Granulocyte Absolute 0.02 K/mm3 (0.00-0.031); Immature Granulocyte Percent A 0.3 % (0-0.5); Lymphocytes Absolute Auto 0.73 K/mm3 (0.9-3.2); Lymphocytes Percent Auto 10.4 % (18.3-44.2); Mean Corpuscular HGB Conc 30.1 g/dl (32-36); Mean Corpuscular Hemoglobin 28.4 pg (26-34); Mean Corpuscular Volume 94.4 fl (80-100); Mean Platelet Volume 10.1 fl (7.4-10.4); Monocytes Absolute Auto 0.5 K/mm3 (0.1-0.6); Monocytes Percent Auto 7.5 % (2.6-8.5); Neutrophils Absolute Auto 5.3 K/mm3 (1.3-6.7); Neutrophils Percent Auto 75.8 % (45.5-73.1); Platelet Count Result 255 k/mm3 (150-375); Red Blood Count 3.06 M/mm3 (4.6-6.20); Red Cell Distribution Width 16.7 % (11.5-14.5)
[2021-04-30 09:33] LABS: Albumin Level 3.2 g/dL (3.5-5.1); Anion Gap 7 mmol/L (8-16); Blood Urea Nitrogen 18 mg/dL (9-20); Carbon Dioxide 33 mmol/L (22-30); Chloride 96 mmol/L (98-107); Estimated CRCL calculation 32 ml/min; Estimated Glomerular Filt Rate 31; Glucose 119 mg/dL (65-110); Phosphorus 2.8 mg/dL (2.5-4.5); Potassium 3.4 mmol/L (3.4-5.0); Sodium 136 mmol/L (137-145)
[2021-04-30 10:29] VITALS: PULSE 72
[2021-04-30] MEDS: AMIODARONE HCL 200 MG TABLET PO (10:29)
[2021-04-30] MEDS: SACUBITRIL/VALSARTAN 24-26 MG TABLET 1 TAB PO (10:29)
[2021-04-30] MEDS: PANTOPRAZOLE 40 MG TABLET PO (10:30)
[2021-04-30] MEDS: ASPIRIN 81 MG ENTERIC TABLET PO (10:30)
[2021-04-30] MEDS: FUROSEMIDE 40 MG TABLET PO (10:30)
[2021-04-30] MEDS: CLOPIDOGREL BISULFATE 75 MG TABLET PO (10:30)
[2021-04-30] MEDS: FERROUS SULFATE 324 MG TABLET PO (10:30)
[2021-04-30 11:58] LABS: Glucose Point of Care 145 mg/dl (65-105)
[2021-04-30 12:02] VITALS: O2SAT 94
== END 2021-04-30 14:52 | disposition home or self-care (01) | DRG 291 ==
LOC: ANHED 09:45 → ANHIMU 12:36 → ANH3MEDSUR 04-30 11:35 → ANHIMU 05-01 14:01
PROVIDERS: Internal Medicine; Physician Assistant; Admitting Provider Internal Medicine; Emergency Provider Emergency Medicine; Visit Provider Nurse Practitioner
DX: I50.23 Acute on chronic systolic (congestive) heart failure (principal); J96.01 Acute respiratory failure with hypoxia; N18.4 Chronic kidney disease, stage 4 (severe); E11.22 Type 2 diabetes mellitus with diabetic chronic kidney disease; E11.65 Type 2 diabetes mellitus with hyperglycemia; Z20.822 Contact with and (suspected) exposure to COVID-19; I48.0 Paroxysmal atrial fibrillation; R77.8 Other specified abnormalities of plasma proteins; E87.5 Hyperkalemia; J44.9 Chronic obstructive pulmonary disease, unspecified; F17.210 Nicotine dependence, cigarettes, uncomplicated; I25.5 Ischemic cardiomyopathy; I25.10 Atherosclerotic heart disease of native coronary artery without angina pectoris; Z79.82 Long term (current) use of aspirin; Z79.899 Other long term (current) drug therapy; Z88.0 Allergy status to penicillin
CPT/HCPCS: 36415; 36600; 71046; 80048; 80053; 80069; 82375; 82805; 82948; 83050; 83690; 83735; 83880; 84443; 84484; 85025; 85027; 85610; 85730; 93005; 93970; 96374; 97165; 99291; A9270; C9803; G0378; J1940; U0003; U0005

== ENCOUNTER 2021-07-02 14:14 | Outpatient (CLI) | payer MEDICARE, SELFPAY ==
[2021-07-02 14:36] LABS: Hematocrit 33.6 % (37.0-46.0); Hemoglobin 9.9 g/dL (12.4-15.3); Mean Corpuscular HGB Conc 29.5 g/dL (32.0-36.0); Mean Corpuscular Hemoglobin 27.3 pg (27.0-31.0); Mean Corpuscular Volume 92.8 fL (78.0-102.0); Mean Platelet Volume 9.8 fl (8.7-11.0); Platelet Count Result 277 K/mm3 (150-420); Red Blood Count 3.62 M/mm3 (4.70-6.10); Red Cell Distribution Width 17.1 % (11.6-14.4); White Blood Count 7.6 K/mm3 (4.8-10.8)
[2021-07-02 15:31] LABS: Alanine Aminotransferase 13 U/L (16-63); Albumin Level 3.1 g/dL (3.4-5.0); Alkaline Phosphatase 92 U/L (46-116); Anion Gap 9 mmol/L (8-16); Aspartate Amino Transferase 15 U/L (15-37); Bilirubin,Total 0.5 mg/dL (0.00-1.00); Blood Urea Nitrogen 20 mg/dL (7-18); Calcium 8.7 mg/dL (8.5-10.1); Carbon Dioxide 28 mmol/L (21-32); Chloride 101 mmol/L (98-108); Estimated Glomerular Filt Rate 37; Glucose 171 mg/dL (70-99); Iron 18 ug/dL (65-175); NT Pro B Type Natriuretic Pept 6842 pg/mL (0-125); Osmolality Calculated 292 mOsm/kg (285-295); Percent Iron Saturation 6 % (12-57); Potassium 5.2 mmol/L (3.5-5.1); Sodium 138 mmol/L (136-145); Total Protein 6.7 g/dL (6.4-8.2)
[2021-07-02 16:14] LABS: Thyroid Stimulating Hormone Reflex 2.06 u/IU/mL (0.36-3.74)
== END 2021-07-02 14:15 | disposition home or self-care (01) ==
LOC: CHSLAB 14:17
PROVIDERS: PCP Family Medicine; Visit Provider Family Medicine
DX: D64.9 Anemia, unspecified (principal); I48.0 Paroxysmal atrial fibrillation; E11.9 Type 2 diabetes mellitus without complications; E11.65 Type 2 diabetes mellitus with hyperglycemia; I50.9 Heart failure, unspecified
CPT/HCPCS: 36415; 80053; 83036; 83540; 83550; 83880; 84443; 85027

== ENCOUNTER 2021-08-20 07:05 | Emergency (ER) | payer MEDICARE, SELFPAY ==
[2021-08-20] VITALS (11 sets, daily range): BP systolic 152–168; BP diastolic 68–98; PULSE 72–99; RESP 20–22; TEMP 36.4–36.7; O2SAT 94–100
--- NOTE | ~2021-08-20 | XR_ITS ---
EXAMINATION: XR chest 1V portable DATE: 08/20/2021 07:42 INDICATION: Shortness of breath. Weakness. TECHNIQUE: A single frontal view of the chest was obtained. COMPARISON: Chest 2 views 04/27/2021, CT abdomen and pelvis 08/12/2020 FINDINGS: There are small right and moderate-sized left pleural effusions. There is a diffuse interst itial pattern in the lungs, consistent with pulmonary edema. There are airspace opacities at the lung bases. No pneumothorax. The heart size is normal. IMPRESSION: 1. Small right and moderate-sized left pleural effusions with mild improvement on the left. 2. Pulmonary edema. 3. Airspace opacities at the lung bases, consistent with atelectasis or less likely pneumonia. Reviewed, dictated and finalized at location A. IMPRESSION: 1. Small right and moderate-sized left pleural effusions with mild improvement on the left. 2. Pulmonary edema. 3. Airspace opacities at the lung bases, consistent with atelectasis or less li jos pneumonia.
--- NOTE | 2021-08-20 07:17 | ED.SOB ---
HPI - SOB/Dyspnea General Chief Complaint: Shortness of Breath/Dyspnea Stated Complaint: ambulance Time Seen by Provider: 08/20/21 07:17 Source: patient History of Present Illness HPI Narrative: 71-year-old male, smoker with COPD, three-vessel CAD/CHF with an EF of 35%, paroxysmal atrial fibrillation, diabetes mellitus, CKD, PVD status post stents, GI bleed, DVT presents to the ER with -- worsening shortness of breath for the past few days. -- Cough with mucopurulent sputum -- chronic leg swelling with black discoloration of toes on bilateral feet no fever or chills. No chest pain. MD elicited complaint: shortness of breath and cough Pertinent past history: COPD and congestive heart failure Onset (ago): day(s) Context: recent illness and anxiety Timing: constant Severity: moderate Exacerbating factors: exertion Relieving factors: nothing Known history of: COPD Treatment prior to arrival: bronchodilator Related Data Home oxygen amount: none Home Medications Medication Instructions Recorded Confirmed amiodarone 200 mg PO DAILY 12/15/20 04/27/21 atorvastatin 80 mg PO HS 04/07/21 04/27/21 tamsulosin 0.4 mg PO HS 04/07/21 04/27/21 metoprolol tartrate 50 mg PO HS 04/27/21 04/27/21 Allergies Allergy/AdvReac Type Severity Reaction Status Date / Time Penicillins Allergy Rash,SOB Verified 08/20/21 10:17 Review of Systems Review of Systems: All systems reviewed & are unremarkable except as noted in HPI and below Constitutional: Constitutional: Reports as per HPI and Reports no additional constitutional complaints Eyes: Eyes: Reports as per HPI and Reports no additional eye complaints ENT: Reports system reviewed and no additional complaints, except as documented Cardiovascular: Cardiovascular: Reports as per HPI and Reports no additional cardiovascular complaints Respiratory: Respiratory: Reports as per HPI, Reports no additional respiratory complaints, Reports chest congestion, Reports cough and Reports dyspnea Gastrointestinal: Gastrointestinal: Reports as per HPI and Reports no additional gastrointestinal complaints Genitourinary: Genitourinary: Reports no additional male genitourinary complaints Musculoskeletal: Musculoskeletal: Reports no additional musculoskeletal complaints and Reports as per HPI Integumentary/Breasts: Skin/Breast: Reports system reviewed and no additional complaints, except as docu and Reports as per HPI Neurologic: Reports system reviewed and no additional complaints, except as documented and Reports as per HPI Psychiatric: Psychiatric: Reports no additional psychiatric complaints, Reports as per HPI and Reports anxiety Endocrine: Endocrine: Reports no additional endocrine complaints Hematologic/Lymphatic: Hematologic/Lymphatic: Reports no additional hematologic/lymphatic complaints Allergic/Immunologic: Allergic/Immunologic: Reports no additional allergic/immunologic complaints [facility] Past Medical History Medical History Chronic renal failure, stage 3 (moderate) COPD (chronic obstructive pulmonary disease) DVT (deep venous thrombosis) History of heart attack 07/2020 EF 35% Psoriasis PVD (peripheral vascular disease) Tobacco abuse Surgical History Surgical History H/O craniotomy Subdural hematoma S/P arthroscopic surgery of right knee Family History Family History Mother Cerebrovascular accident Diabetes mellitus Father Natural with proved cause Social History Social History Social History: The patient is and has 4 biological children. The patient is a full code. His is the durable power securities attorney for healthcare. 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 Patient smokes 1 and half packs of cigarettes a day. He denies any alcohol or
[2021-08-20 07:19] LABS: Glucose Point of Care 250 mg/dl (65-105)
--- NOTE | 2021-08-20 07:31 | ECG_ITS ---
Measurements Intervals [place] Rate: 87 P: 62 VT: 168 QRS: 124 QRSD: 174 T: -44 QT: 428 QTc: 516 Interpretive Statements SINUS RHYTHM WITH OCCASIONAL VENTRICULAR PREMATURE COMPLEXES RIGHT BUNDLE BRANCH BLOCK [120+ ms QRS DURATION, UPRIGHT V1, 40+ ms S IN I/aVL/V4/V5/V6] LEFT POSTERIOR FASCICULAR BLOCK [QRS AXIS > 109, INFERIOR Q] VERSUS LIMB LEAD MISPLACEMENT ANTEROSEPTAL MYOCARDIAL INFARCTION , OF INDETERMINATE AGE [40+ ms Q WAVE IN V1-V4] MODERATE T-WAVE ABNORMALITY, CONSIDER INFERIOR ISCHEMIA [-0.1+ mV T-WAVE IN II/aVF] COMPARED TO ECG 04/27/2021 08:00:36 AXIS IS MUCH DIFFERENT; CONSIDER LIMB LEAD MISPLACMEMENT VS NEW LEFT POSTERIOR FASCICULAR BLOCK Electronically Signed On 08-21-2021 14:18:40 CDT by Carmen Amezquita M.D.
[2021-08-20 08:00] LABS: Base Excess ABG 3.5 mmol/L (0-2); Device ROOM AIR; HCO3 ABG 27.1 mmol/L (23-29); Modified Allen's Test Pass; Oxygen Content ABG 13.3 %vol (16.0-22.0); Oxygen Saturation ABG 81.3 % (95-97); Oxyhemoglobin 77.4 % (94-100); PCO2 ABG 37.7 mmHg (35-45); PO2 ABG 42.3 mmHg (75-85); Site Drawn LEFT RADIAL; Total Hemoglobin 12.2 g/dL (12.0-18.0); pH ABG 7.48 (7.35-7.45)
[2021-08-20 08:05] LABS: Basophils Absolute Auto 0.07 K/mm3 (0.00-0.10); Basophils Percent Auto 0.7 % (0.0-1.0); Eosinophils Absolute Auto 0.27 K/mm3 (0.02-0.50); Eosinophils Percent Auto 2.7 % (1.0-6.0); Hematocrit 39.3 % (37.0-46.0); Hemoglobin 11.8 g/dL (12.4-15.3); Immature Granulocyte Absolute 0.04 K/mm3 (0.00-0.00); Immature Granulocyte Percent A 0.4 % (0.0-0.0); Lymphocytes Absolute Auto 0.92 K/mm3 (1.10-4.50); Lymphocytes Percent Auto 9.3 % (18.0-42.0); Mean Corpuscular Hemoglobin 26.8 pg (27.0-31.0); Mean Corpuscular Volume 89.3 fL (78.0-102.0); Mean Platelet Volume 9.8 fl (8.7-11.0); Monocytes Absolute Auto 0.58 K/mm3 (0.10-0.90); Monocytes Percent Auto 5.9 % (2.0-11.0); Platelet Count Result 325 K/mm3 (150-420); Red Cell Distribution Width 18.6 % (11.6-14.4); White Blood Count 9.9 K/mm3 (4.8-10.8)
[2021-08-20 08:21] LABS: INR 1.1; Partial Thromboplastin Time 26.8 SEC (23.90-30.70); Prothrombin Time 11.3 Seconds (9.50-12.10)
[2021-08-20 08:25] LABS: SARS-CoV-2 Ag Negative (Negative)
[2021-08-20 08:27] LABS: Lactic Acid Reflex 1.9 mmol/L (0.4-2.0)
[2021-08-20 08:29] LABS: Alanine Aminotransferase 9 U/L (16-63); Albumin Level 3.8 g/dL (3.4-5.0); Alkaline Phosphatase 132 U/L (46-116); Anion Gap 12 mmol/L (8-16); Aspartate Amino Transferase 11 U/L (15-37); Bilirubin,Total 1.1 mg/dL (0.00-1.00); Blood Urea Nitrogen 21 mg/dL (7-18); Calcium 9.4 mg/dL (8.5-10.1); Carbon Dioxide 27 mmol/L (21-32); Chloride 99 mmol/L (98-108); Estimated Glomerular Filt Rate 38; Glucose 250 mg/dL (70-99); NT Pro B Type Natriuretic Pept 10299 pg/mL (0-125); Osmolality Calculated 297 mOsm/kg (285-295); Potassium 4.6 mmol/L (3.5-5.1); Sodium 138 mmol/L (136-145); Total Protein 8.1 g/dL (6.4-8.2)
[2021-08-20 08:31] LABS: Troponin I 153.9 ng/L (0.00-60.4)
[2021-08-20 08:40] LABS: D Dimer 2.43 mg/L (0.19-0.50)
[2021-08-20] MEDS: FUROSEMIDE INJ 20 MG/2 ML VIAL IV PUSH ×2 (08:49→10:20)
[2021-08-20] MEDS: methylPREDNISolone SOD SUCC 125 MG VIAL IV PUSH (08:51)
[2021-08-20] MEDS: IPRATROPIUM 0.5 MG/ALBUTEROL SULFATE 2.5 MG AMPUL.NEB 3 ML INHALATION (09:00)
[2021-08-20] MEDS: METOPROLOL TARTRATE 25 MG TABLET PO (09:11)
[2021-08-20] MEDS: HEPARIN SODIUM 5,000 UNITS/ML VIAL 4000 UNITS IV PUSH (09:12)
[2021-08-20] MEDS: HEPARIN SOD/D5W 100 UNITS/ML 25,000 UNITS/250 ML BAG 9 UNITS IV CONT (09:30)
[2021-08-20] MEDS: AZITHROMYCIN 250 MG TABLET 500 MG PO (09:32)
[2021-08-20 10:14] LABS: Glucose Point of Care 270 mg/dl (65-105)
[2021-08-20 10:14] LABS: Glucose Point of Care 238 mg/dl (65-105)
[2021-08-20 10:15] LABS: Appearance Urine Clear (Clear); Bilirubin Urine Negative (Negative); Color Urine Light Yellow (Yellow); Glucose Urine UA 2+ (Negative); Ketones Urine Negative (Negative); Leukocyte Esterase Ur Trace (Negative); Nitrate Urine Positive (Negative); Protein Urine Negative (Negative); Specific Grav Ur 1.015 (1.010-1.020); Urobilinogen Urine 0.2 mg/dL (0.2-1.0)
[2021-08-20 10:22] LABS: Add Urine Microscopic? YES; Bacteria Urine 1+ /hpf; Blood Urine Trace-Intact (Negative); RBC Urine 0-2 /hpf (0-2); Squamous Epithelial Cell Urine Rare /hpf (Few); WBC Urine 0-3 /hpf (0-3)
== END 2021-08-20 12:01 | disposition short-term general hospital (02) ==
PROVIDERS: Emergency Provider Internal Medicine Critical Care Medicine; PCP Family Medicine
DX: J96.01 Acute respiratory failure with hypoxia (principal); J44.1 Chronic obstructive pulmonary disease with (acute) exacerbation; Z20.822 Contact with and (suspected) exposure to COVID-19; N18.30 Chronic kidney disease, stage 3 unspecified; Z86.718 Personal history of other venous thrombosis and embolism; F17.200 Nicotine dependence, unspecified, uncomplicated
CPT/HCPCS: 36415; 36600; 71045; 80053; 81001; 82805; 82948; 83605; 83880; 84484; 85025; 85380; 85610; 85730; 87040; 87426; 93005; 94640; 96365; 96366; 96375; 96376; 99285; A9270; C9803; J1644; J1940; J2930

== ENCOUNTER 2021-08-20 14:57 | Observation (INO) | payer MEDICARE, SELFPAY ==
[2021-08-20] VITALS (9 sets, daily range): BP systolic 126–145; BP diastolic 65–89; PULSE 64–77; RESP 20–22; TEMP 36.3–36.4; O2SAT 94–99; BMI 22.6; BMI 22.2
--- NOTE | ~2021-08-20 | US_ITS ---
EXAMINATION: US carotid duplex BI DATE: 08/21/2021 10:19 INDICATION: Left parietal lobe infarct. TECHNIQUE: Grayscale, color Doppler, and pulsed Doppler images of the cervical carotid arteries were obtained. The degree of vessel stenosis is placed in one of the following categories: normal, <50%, 5 0-69%, >=70% but less than near-occlusion, near-occlusion, or total occlusion. Note that percent sten osis relative to normal distal artery lumen diameter is indirectly measured from velocity measurement s as described by Mookie, et al. Radiology 2003; 229:340-346. COMPARISON: None. FINDINGS: RIGHT: The right common carotid artery (CCA) peak systolic velocity (PSV) is 107 cm/s. The right internal ca rotid artery (ICA) PSV is 140 cm/s. The right ICA end-diastolic velocity (EDV) is 14 cm/s. The right ICA/CCA PSV ratio is 1.3. Grayscale and color Doppler images yield an estimate of <50% diameter reduc tion from plaque in the ICA. There is antegrade flow in the right vertebral artery. LEFT: The left CCA PSV is 116 cm/s. The left ICA PSV is 358 cm/s. The left ICA EDV is 27 cm/s. The left ICA /CCA PSV ratio is 3.1. Grayscale and color Doppler images yield an estimate of >=50% diameter reducti on from plaque in the ICA. There is antegrade flow in the left vertebral artery. IMPRESSION: 1. <50% stenosis in the right internal carotid artery. 2. 50-69% stenosis in the left internal carotid artery. Reviewed, dictated and finalized at location A.
--- NOTE | ~2021-08-20 | CT_ITS ---
EXAMINATION: CT brain wo con EXAM DATE: 08/21/2021 10:02 INDICATION: Altered mental status, on heparin TECHNIQUE: Spiral CT of the head was performed without contrast. Axial, coronal and sagittal images were reviewed. The dose-length product (DLP) for this examination was 605.33 mGy-cm. The exposure w as tailored according to patient size, and iterative reconstruction (ASIR) was used as additional dos e reduction technique. There is no prior study for comparison. FINDINGS: There is large old left frontal lobe region of encephalomalacia, with small left frontal bu rr hole. Small to moderate right frontal lobe encephalomalacia inferiorly. Small old left parietal lo be infarction. Small to moderate-sized old bilateral cerebellar infarctions. Small old region of left temporal lobe encephalomalacia with overlying ruddy hole. There is no acute intraparenchymal hemorrhage. No evidence of intraparenchymal brain mass lesion. N o evidence of acute infarction. Please note that initial head CT has limited sensitivity for small o r acute infarctions. There is mild periventricular and subcortical hypodensity, nonspecific but proba moreno related to small vessel ischemic disease. There is moderate prominence of the sulci and ventric les related to cerebral atrophy. There is intracranial carotid arteriosclerosis. There are no extr a-axial collections. There is no mass effect or midline shift. The orbits are unremarkable. Soft t issue is unremarkable. The visualized sinuses and mastoid air cells are well aerated. IMPRESSION: 1. Multiple regions of encephalomalacia.. 2. Chronic age related findings. 3. No acute findings. Reviewed, dictated and finalized at location A.
--- NOTE | 2021-08-20 12:42 | ADMGEN ---
This patient, Giovanni Drew, was admitted to IMU Room 203-01. Patient/family oriented to hospital policies and general routines including ID bracelet, bed and alarms, visiting hours, pain management, procedures, bathroom and other care routines, personal items, smoking policy, room service/diet, and visiting hours. Information on how to activate the Rapid Response Team has been discussed. Patient/Family are encouraged to report perceived risks to care and to ask questions if they do not understand what they are told or what they should do.
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
[2021-08-20 15:03] LABS: Basophils Percent Auto 0.2 % (0.2-1.2); Hematocrit 41.7 % (42.0-52.0); Hemoglobin 12.3 g/dL (14.0-18.0); Immature Granulocyte Absolute 0.03 K/mm3 (0.00-0.031); Immature Granulocyte Percent A 0.5 % (0-0.5); Lymphocytes Absolute Auto 0.17 K/mm3 (0.9-3.2); Lymphocytes Percent Auto 2.7 % (18.3-44.2); Mean Corpuscular HGB Conc 29.5 g/dl (32-36); Mean Corpuscular Hemoglobin 26.7 pg (26-34); Mean Corpuscular Volume 90.5 fl (80-100); Mean Platelet Volume 9.7 fl (7.4-10.4); Monocytes Percent Auto 0.6 % (2.6-8.5); Platelet Count Result 297 k/mm3 (150-375); Red Blood Count 4.61 M/mm3 (4.6-6.20); Red Cell Distribution Width 18.7 % (11.5-14.5); White Blood Count 6.3 K/mm3 (4.5-10.0)
[2021-08-20 15:19] LABS: INR 1.2; Partial Thromboplastin Time 31.2 SECONDS (22.3-36.8); Prothrombin Time 14.7 Seconds (11.1-14.7)
[2021-08-20] MEDS: HEPARIN SOD/D5W 100 UNITS/ML 25,000 UNITS/250 ML BAG 9 UNITS IV CONT (15:32)
--- NOTE | 2021-08-20 19:46 | PC.NURSE ---
19:15 Patient found by nurse, and was urinating in linen basket. When asked about this patient was confused, and stated he, didn't pee in the linen basket. PA notified, heparin drip stopped, and stat head CT ordered. Upon notifying patient of the need for a head CT, he refused to go downstairs for imaging. PA notified. She will come see patient. 19:40 Patient's sister present. Discussed need for head CT, and about earlier episode with urinating in laundry basket. Patient said he did it, because his IV tubing wasn't long enough to get to the bathroom. Patient had been using urinal on day shift without issue. PA aware that patient is refusing head CT. Will continue to monitor.
[2021-08-20 21:07] LABS: Alveolar/Arterial O2 Gradient 45.2 mmHg; Base Excess ABG 4.3 mEq/l (+/-2.0); Carboxyhemoglobin 0.6 % THb (0-2.0); Device ROOM AIR; Fractional Inspired Oxygen 21 %; HCO3 ABG 27.9 mEq/l (22.0-26.0); Methemoglobin ABG 0.3 %THb (0-1.5); Modified Allen's Test Pass; Oxygen Content ABG 14.8 %vol (16.0-22.0); Oxygen Saturation ABG 92.5 % (95.0-100.0); Oxyhemoglobin 90.6 % THb (90.0-100.0); PCO2 ABG 37.9 mmHg (35.0-45.0); PO2 ABG 59.1 mmHg (80.0-100.0); PO2 FiO2 Ratio Arterial Blood 2.81 %; Reduced Hemoglobin 8.5 %THb (0-5.0); Site Drawn RIGHT RADIAL; Total Hemoglobin 11.6 g/dL (12.0-18.0); pH ABG 7.485 (7.350-7.450)
[2021-08-20 22:04] LABS: Partial Thromboplastin Time 31.3 SECONDS (22.3-36.8)
[2021-08-21] VITALS (16 sets, daily range): BP systolic 104–137; BP diastolic 36–77; PULSE 53–73; RESP 16–20; TEMP 36.1–36.7; O2SAT 90–95
--- NOTE | 2021-08-21 | ECHO_ITS ---
Patient Info Name: Giovanni Drew Age: 71 years : 1950 Gender: Male Ht: 72 in Wt: 164 lbs BSA: 1.94 m2 HR: 71 bpm BP: 137 / 77 mmHg Exam Date: 08/21/2021 11:25 AM Exam Location: [facility] Patient Status: Inpatient Admit Date: 08/20/2021 Staff Ordering Physician: Twyla Xavier PA-C Fingerprint Classifier: Bebeto Lindquist, JUSTICE, RT Attending Provider: Twyla Xavier PA-C Referring Physician: Morenita SARAH; Exam Type: CA echo doppler w bubble study Study Info Indications I51.9 - Heart disease, unspecified Complete two-dimensional, color flow and Doppler transthoracic echocardiogram is performed with agitated saline. Summary 1. Mild left ventricular enlargement, mild LVH; severe global LV systolic dysfunction with segmental wall motion abnormalities; anterolateral wall is akinetic; ejection fraction about 20-25%. Grade 2 diastolic dysfunction. Mild left atrial enlargement. Normal mitral valve structure, mild mitral regurgitation. Normal aortic valve structure, no stenosis , trace regurgitation. Mild TR, moderate pulmonary hypertension, RVSP 55 mmHg. Mild pulmonic regurgitation. Left Ventricle Left ventricular chamber dimension is mildly enlarged. Left ventricular systolic function is normal, estimated at 20-25%. There is mildly increased left ventricular wall thickness. Left ventricular septal wall motion is normal. The left ventricular diastolic function is grade II diastolic dysfunction. Right Ventricle Right ventricular chamber dimension is mildly enlarged. Right ventricular systolic function is reduced. Left Atria Left atrial chamber dimension is mildly enlarged. Right Atria Right atrial chamber dimension is normal. Atrial Septum Intact interatrial septum visualized by agitated saline imaging. Aortic Valve The aortic valve is normal. There is no aortic valve sclerosis. There is no aortic valve stenosis. There is trace aortic valve regurgitation. Pulmonic Valve The pulmonic valve is normal. There is mild pulmonic regurgitation. Mitral Valve The mitral valve has normal leaflets. There is mild mitral valve regurgitation. Tricuspid Valve The tricuspid valve leaflets are normal. There is mild tricuspid valve regurgitation. Moderate pulmonary hypertension, estimated pulmonary arterial systolic pressure is 55 mmHg. Pericardium/Pleural The pericardium appears normal. There is trivial pericardial effusion. Inferior Vena Cava Dilated inferior vena cava with >50% collapse upon inspiration consistent with elevated right atrial pressure, 10 mmHg. Aorta The aortic root size at the sinus of Valsalva is normal. The prox ascending aorta size is normal. Left Ventricular Outflow Tract Name Value Normal LVOT 2D LVOT Diameter 2.1 cm LVOT Doppler LVOT Peak Gradient 2 mmHg LVOT Mean Gradient 1 mmHg LVOT VTI 16 cm LVOT VTI/AV VTI Ratio 0.7 LVOT Stroke Volume 55 ml LVOT CO 3.7 l/min LVOT CI
--- NOTE | 2021-08-21 00:49 | PC.NURSE ---
Addendum entered by Rony Johnson RN 08/21/21 00:53: Patient continues to refuse head CT at this time. Original Note: 00:45 Patient's neuro status has remained consistent since shift change. However, he continues to be combative and increasingly rude to staff. Staff reassures patient that our concern is his safety. Patient is intermittently compliant, but continually removes monitoring devices and has discussed leaving. Importance of diagnostic tests, and monitoring devices explained to patient. He states, I don't care, just leave me alone. Will continue to monitor.
[2021-08-21 01:00] LABS: Troponin I 0.053 ng/mL (0.000-0.034)
[2021-08-21 06:25] LABS: Hematocrit 30.9 % (42.0-52.0); Hemoglobin 9.6 g/dL (14.0-18.0); Mean Corpuscular HGB Conc 31.1 g/dl (32-36); Mean Corpuscular Hemoglobin 27.3 pg (26-34); Mean Corpuscular Volume 87.8 fl (80-100); Platelet Count Result 256 k/mm3 (150-375); Red Blood Count 3.52 M/mm3 (4.6-6.20); Red Cell Distribution Width 18.5 % (11.5-14.5); White Blood Count 7.4 K/mm3 (4.5-10.0)
[2021-08-21 06:32] LABS: Anion Gap 5 mmol/L (8-16); Blood Urea Nitrogen 33 mg/dL (9-20); Calcium 8.3 mg/dL (8.4-10.2); Carbon Dioxide 29 mmol/L (22-30); Chloride 98 mmol/L (98-107); Estimated CRCL calculation 38 ml/min; Estimated Glomerular Filt Rate 40; Glucose 243 mg/dL (65-110); Potassium 4.9 mmol/L (3.4-5.0); Sodium 132 mmol/L (137-145)
[2021-08-21] MEDS: FUROSEMIDE INJ 40 MG/4 ML VIAL IV PUSH ×2 (08:37→17:33)
[2021-08-21] MEDS: SACUBITRIL/VALSARTAN 24-26 MG TABLET 1 TAB PO ×2 (08:37→20:18)
[2021-08-21] MEDS: GABAPENTIN 300 MG CAPSULE PO ×2 (08:37→17:36)
[2021-08-21] MEDS: AMIODARONE HCL 200 MG TABLET PO (08:38)
[2021-08-21] MEDS: ASPIRIN 81 MG ENTERIC TABLET PO (08:38)
[2021-08-21] MEDS: CLOPIDOGREL BISULFATE 75 MG TABLET PO (08:39)
[2021-08-21] MEDS: INSULIN ASPART (*BKC) 100 UNITS/ML SUB-Q ×2 (08:39→17:33)
[2021-08-21 08:44] LABS: Glucose Point of Care 267 mg/dl (65-105)
--- NOTE | 2021-08-21 09:48 | PM.CNCAR ---
Assessment and Plan Assessment and plan (1) Acute exacerbation of congestive heart failure: Code(s): I50.9 - Heart failure, unspecified Status: Acute Assessment and Plan: 71-year-old male with multiple medical problems-CAD, history of PCI/stenting, CHF with reduced ejection fraction from ischemic cardiomyopathy (LVEF 35% from 08/14/2020 echo), peripheral arterial disease, paroxysmal atrial fibrillation, diabetes mellitus, COPD, CKD, heavy tobacco abuse. Patient admitted with worsening shortness of breath, likely from combined acute on chronic CHF with reduced ejection fraction and COPD exacerbation. Patient is a heavy smoker. Patient has known severe ischemic cardiomyopathy and history of PCI/stenting. -diuresis with IV furosemide with close monitoring of electrolytes and renal function. -continue DAPT, beta-faviola, ARNI, statin. (2) Elevated troponin: Code(s): R77.8 - Other specified abnormalities of plasma proteins Status: Acute Assessment and Plan: In the setting of CHF exacerbation, CKD. Patient does have underlying coronary artery disease. No active ischemic symptoms at present. Continue current medical treatment. Need for additional cardiac ischemic evaluation basement patient's clinical course. (3) Chronic obstructive pulmonary disease: Code(s): J44.9 - Chronic obstructive pulmonary disease, unspecified Status: Acute Assessment and Plan: Smoking cessation counseling was done. Management as per primary team (4) Peripheral vascular disease: Code(s): I73.9 - Peripheral vascular disease, unspecified Status: Acute Assessment and Plan: Dual antiplatelet therapy, statin. Patient is is being transferred to [facility] for further vascular management by his primary slag mixer Dr. Rush (5) Chronic kidney disease: Qualifiers: Chronic kidney disease stage: stage 4 (severe) Qualified Code(s): N18.4 - Chronic kidney disease, stage 4 (severe) Code(s): N18.9 - Chronic kidney disease, unspecified Status: Acute Assessment and Plan: Monitor renal function (6) Paroxysmal atrial fibrillation: Code(s): I48.0 - Paroxysmal atrial fibrillation Status: Acute Assessment and Plan: Currently in sinus rhythm. He will need to be evaluated for chronic anticoagulation by his primaryl slag mixer. (7) Tobacco abuse: Code(s): Z72.0 - Tobacco use Status: Chronic Assessment and Plan: Smoking cessation counseling was done. Patient was cautioned that he is at very high risk for major adverse cardiovascular events and major adverse limb events. He verbalized understanding. History of Present Illness History of Present Illness Consult date/time: 08/21/21 09:48 DATE OF CONSULT: 08/21/2021 REASON FOR CONSULT: Elevated troponin REQUESTING PHYSICIAN: Rosa Elias PA-C CHIEF COMPLAINT: Shortness of breath HPI: 71-year-old male with multiple medical problems-CAD, history of PCI/stenting, CHF with reduced ejection fraction from ischemic cardiomyopathy (LVEF 35% from 08/14/2020 echo), peripheral arterial disease, paroxysmal atrial fibrillation, diabetes mellitus, COPD, CKD, heavy tobacco abuse. Patient was transferred from [facility] on 08/20/2021 with complaints of worsening shortness of breath. At baseline, patient has dyspnea on mild exertion. He states that he is able to walk 30-40 foot before he gets short of breath. He came to the hospital with worsening dyspnea associated with dizziness without syncope. He denied any chest pain. Patient has severe peripheral artery disease and reports that he has pulses in both feet. He continues to smoke 1-1 and half packs per day. Patient states that he was scheduled to be seen by Dr Rush for cardiovascular management, and is anticipating transfer to [facility]. EKG on my personal evaluation showed sinus rhythm, PVCs, right bundle branch blo
--- NOTE | 2021-08-21 11:55 | PM.IMPN ---
Progress Note: A&P Assessment and Plan (1) Acute exacerbation of congestive heart failure: Qualifiers: Heart failure type: combined systolic and diastolic Qualified Code(s): I50.43 - Acute on chronic combined systolic (congestive) and diastolic (congestive) heart failure Code(s): I50.9 - Heart failure, unspecified Status: Acute Assessment and Plan: Patient with ischemic cardiomyopathy, 08/21 echo showed LVEF 20-25%. Patient was transferred here for worsening shortness of breath and chest pressure, bilateral pleural effusions, pulmonary edema, elevated troponins, and lower extremity edema. Home dose of lasix is 40mg daily. After initial diuresis here, patient's symptoms have greatly improved. Cr downtrending, continue with judicious diuresis with IV furosemide. Total intake today 930ml, output 275ml. - Continue Entresto - Continue to diurese with IV furosemide - Daily weights - Monitor electrolytes - Strict I & Os - Close monitoring of volume status and renal function (2) Elevated troponin: Code(s): R77.8 - Other specified abnormalities of plasma proteins Status: Acute Assessment and Plan: Troponins trended down from 153.0->0.053-> 0.050. Patient denies any chest pain this morning. [facility] cardiology group has been consulted and advised this does not appear consistent with an ACS presentation. Advised we can d/c the heparin drip and continue DAPT and Lovenox for DVT prophylaxis. (3) Acute delirium: Code(s): R41.0 - Disorientation, unspecified Status: Acute Assessment and Plan: Patient became aggressive and noncooperative last evening and into this morning, and only oriented to himself, which was a notable acute mental status change. No reported history of dementia. This resolved spontaneously after breakfast. Neuro exam was unremarkable and he retained all motor strength and coordination. No WBC elevation. UA showed nitrates, bacteria, trace leuk esterase, culture pending, consider UTI. Head CT non-con showed no acute process, multiple regions of encephalomalacia, chronic age related findings. Carotid doppler showed: 1. <50% stenosis in the right internal carotid artery. 2. 50-69% stenosis in the left internal carotid artery. Echo showed no PFO. - Urine culture pending- will follow. (4) Chronic obstructive pulmonary disease: Code(s): J44.9 - Chronic obstructive pulmonary disease, unspecified Status: Acute Assessment and Plan: Continue p.r.n. nebulizers. (5) Chronic kidney disease: Qualifiers: Chronic kidney disease stage: stage 4 (severe) Qualified Code(s): N18.4 - Chronic kidney disease, stage 4 (severe) Code(s): N18.9 - Chronic kidney disease, unspecified Status: Acute Assessment and Plan: Renal function is stable on review of previous labs and continue to be monitored as we diurese. (6) Coronary artery disease: Code(s): I25.10 - Atherosclerotic heart disease of [place] coronary artery without angina pectoris Status: Acute Assessment and Plan: Continue dual anti-platelet therapy, beta-faviola, and statin. (7) Paroxysmal atrial fibrillation: Code(s): I48.0 - Paroxysmal atrial fibrillation Status: Acute Assessment and Plan: Currently in a sinus rhythm. Continue amiodarone. He is not on anticoagulation per his industrial relations director. CHADSVASC score 5, so should be discussed. -He is being prophylactically anticoagulated with lovenox during this stay. (8) Peripheral vascular disease: Code(s): I73.9 - Peripheral vascular disease, unspecified Status: Acute Assessment and Plan: He has dry, ischemic toes on both feet without evidence of active infection. He is due to have a vascular procedure done this Friday as detailed in HPI. [facility] is requesting pt transfer there. They will contact once bed becomes available. Right DP si
[2021-08-21 12:26] LABS: Glucose Point of Care 172 mg/dl (65-105)
[2021-08-21 16:23] LABS: Glucose Point of Care 292 mg/dl (65-105)
--- NOTE | 2021-08-21 17:24 | PC.NURSE ---
Cardiac rehab information given to patient. at bedside. No questions at this time. RN will continue to educate. Vanessa Winters RN
[2021-08-21 19:56] LABS: Magnesium 2.3 mg/dL (1.6-2.3)
[2021-08-21 19:58] LABS: Glucose Point of Care 150 mg/dl (65-105)
[2021-08-21] MEDS: ATORVASTATIN 40 MG TABLET 80 MG PO (20:18)
[2021-08-21] MEDS: METOPROLOL SUCCINATE EXT REL 50 MG TABCR PO (20:18)
[2021-08-21] MEDS: TAMSULOSIN HCL 0.4 MG CAPSULE PO (20:19)
[2021-08-22] VITALS (8 sets, daily range): BP systolic 93–110; BP diastolic 44–49; PULSE 53–70; RESP 16–24; TEMP 36.2–36.7; O2SAT 90–96
--- NOTE | 2021-08-22 02:32 | PC.NURSE ---
C called for updated vitals, no beds available at this time.
[2021-08-22] MEDS: GABAPENTIN 300 MG CAPSULE PO (07:34)
[2021-08-22] MEDS: AMIODARONE HCL 200 MG TABLET PO (07:34)
[2021-08-22] MEDS: ASPIRIN 81 MG ENTERIC TABLET PO (07:34)
[2021-08-22] MEDS: ENOXAPARIN 40 MG/0.4 ML SYRINGE SUB-Q (07:35)
[2021-08-22] MEDS: SACUBITRIL/VALSARTAN 24-26 MG TABLET 1 TAB PO (07:35)
[2021-08-22] MEDS: FUROSEMIDE INJ 40 MG/4 ML VIAL IV PUSH (07:35)
[2021-08-22] MEDS: polyethylene glycoL 3350 17 GM POWD.PACK PO (07:35)
[2021-08-22] MEDS: FLUTICASONE PROPIONATE 0.05% NA SPR 16 GM BTL (*BKC) 2 SPRAY NASAL (07:35)
[2021-08-22] MEDS: CLOPIDOGREL BISULFATE 75 MG TABLET PO (07:35)
[2021-08-22 07:55] LABS: Glucose Point of Care 286 mg/dl (65-105)
[2021-08-22] MEDS: INSULIN ASPART (*BKC) 100 UNITS/ML SUB-Q ×2 (07:56→12:09)
[2021-08-22 09:08] LABS: Basophils Percent Auto 0.3 % (0.2-1.2); Eosinophils Absolute Auto 0.1 K/mm3 (0-0.3); Eosinophils Percent Auto 0.7 % (0-4.4); Hematocrit 32.9 % (42.0-52.0); Hemoglobin 10.1 g/dL (14.0-18.0); Immature Granulocyte Absolute 0.03 K/mm3 (0.00-0.031); Immature Granulocyte Percent A 0.3 % (0-0.5); Lymphocytes Percent Auto 15.4 % (18.3-44.2); Mean Corpuscular HGB Conc 30.7 g/dl (32-36); Mean Corpuscular Hemoglobin 26.9 pg (26-34); Mean Corpuscular Volume 87.5 fl (80-100); Mean Platelet Volume 10.2 fl (7.4-10.4); Monocytes Absolute Auto 0.6 K/mm3 (0.1-0.6); Monocytes Percent Auto 6.7 % (2.6-8.5); Neutrophils Percent Auto 76.6 % (45.5-73.1); Platelet Count Result 291 k/mm3 (150-375); Red Blood Count 3.76 M/mm3 (4.6-6.20); Red Cell Distribution Width 18.5 % (11.5-14.5); White Blood Count 9.1 K/mm3 (4.5-10.0)
[2021-08-22 09:11] LABS: Alanine Aminotransferase 12 U/L (4-50); Albumin Level 3.5 g/dL (3.5-5.1); Alkaline Phosphatase 85 U/L (38-126); Anion Gap 8 mmol/L (8-16); Aspartate Amino Transferase 24 U/L (17-59); Bilirubin,Total 0.8 mg/dL (0.2-1.3); Blood Urea Nitrogen 41 mg/dL (9-20); Calcium 8.3 mg/dL (8.4-10.2); Carbon Dioxide 30 mmol/L (22-30); Chloride 98 mmol/L (98-107); Estimated CRCL calculation 31 ml/min; Estimated Glomerular Filt Rate 31; Glucose 258 mg/dL (65-110); Phosphorus 3.8 mg/dL (2.5-4.5); Potassium 3.8 mmol/L (3.4-5.0); Sodium 136 mmol/L (137-145)
--- NOTE | 2021-08-22 09:53 | PM.IMPN ---
Progress Note: A&P Assessment and Plan (1) Acute exacerbation of congestive heart failure: Qualifiers: Heart failure type: combined systolic and diastolic Qualified Code(s): I50.43 - Acute on chronic combined systolic (congestive) and diastolic (congestive) heart failure Code(s): I50.9 - Heart failure, unspecified Status: Acute Assessment and Plan: Patient was transferred here for worsening shortness of breath. Patient with known ischemic cardiomyopathy. Echo here showing LVEF 20-25%, anterolateral wall AK, Grade II diastolic dysfunction and moderate pulmonary HTN. Echo July 2020 showing EF 35% with posterior segment AK and anterior wall hypodynamic. BNP 66247. CXR showing pulmonary edema and bilateral small-mod effusions. He takes Lasix 40mg daily. Here, he was started on Lasix 40mg IV BID. Patient's symptoms much improved. UOP inaccurate. Cr up top 2.1 today and BP soft now. - Continue Entresto and Toprol - Change to oral furosemide home dose - Continue close monitoring of volume status and renal function (2) Elevated troponin: Code(s): R77.8 - Other specified abnormalities of plasma proteins Status: Acute Assessment and Plan: Troponins trended down from 153.0->0.053-> 0.050. Patient denies any chest pain [facility] cardiology group was consulted and advised this does not appear consistent with an ACS presentation. As such, heparin drip stopped. Continue DAPT, Toprol and Lipitor. (3) Acute delirium: Code(s): R41.0 - Disorientation, unspecified Status: Acute Assessment and Plan: Patient became aggressive and noncooperative the other evening. No reported history of dementia. This resolved spontaneously. Neuro exam was unremarkable and he retained all motor strength and coordination. No WBC elevation. UA showed nitrates, bacteria, trace leuk esterase, culture pending, consider UTI. Head CT non-con showed no acute process but with multiple regions of encephalomalacia and chronic age related findings. Carotid doppler showed <50% stenosis in the right internal carotid artery and 50-69% stenosis on the left. Echo showed no PFO. BCx NGTD. Patietn remains alert and oriented now. Follow up on Urine culture. (4) Chronic obstructive pulmonary disease: Code(s): J44.9 - Chronic obstructive pulmonary disease, unspecified Status: Acute Assessment and Plan: Stable. No wheezing. Continue p.r.n. nebulizers. (5) Chronic kidney disease: Qualifiers: Chronic kidney disease stage: stage 4 (severe) Qualified Code(s): N18.4 - Chronic kidney disease, stage 4 (severe) Code(s): N18.9 - Chronic kidney disease, unspecified Status: Acute Assessment and Plan: Baseline Cr about 1.8-2.2. Renal function worse today but still within his baseline. Will change Lasix as mentioned above. Continue to monitor. (6) Coronary artery disease: Code(s): I25.10 - Atherosclerotic heart disease of [place] coronary artery without angina pectoris Status: Acute Assessment and Plan: As above. Continue dual anti-platelet therapy, beta-faviola, and statin. (7) Paroxysmal atrial fibrillation: Code(s): I48.0 - Paroxysmal atrial fibrillation Status: Acute Assessment and Plan: Patient maintaining normal sinus rhythm by tele. Continue amiodarone. He is not on anticoagulation per his game trapper. CHADSVASC score 5, so should be discussed. He is being prophylactically anticoagulated with lovenox during this stay. (8) Peripheral vascular disease: Code(s): I73.9 - Peripheral vascular disease, unspecified Status: Acute Assessment and Plan: He has dry, ischemic toes on both feet without evidence of active infection. He is due to have a vascular procedure done this Friday as detailed in HPI. [facility] is requesting pt transfer there. They will contact once bed becomes available. Continue medical ma
--- NOTE | 2021-08-22 10:49 | PM.TDS ---
Transfer Discharge Sum: Prov Provider Date of admission: 08/20/21 14:57 Primary care physician: Jose Tompkins DO Admitting clinician: Vinh Garza MD Consults: 08/20/21 Consult to Physician Routine Comment: Consulting Provider: Jyotsna Lezama crew caller/MD group to consult: [facility] Cardiology Reason for consultation: elevated troponin Has provider been notified: Yes Attending physician on discharge: Jeremiah Garza Discharging clinician: Jeremiah Garza Anticipated date of transfer: 08/22/21 Receiving physician/facility: [facility] DS: Admitting Diagnosis Discharge Date 08/22/21 Admitting Diagnosis Shortness of breath DS: Discharge Diagnosis Discharge Diagnosis (1) Acute exacerbation of congestive heart failure: Qualifiers: Heart failure type: combined systolic and diastolic Qualified Code(s): I50.43 - Acute on chronic combined systolic (congestive) and diastolic (congestive) heart failure Code(s): I50.9 - Heart failure, unspecified Status: Acute Assessment and Plan: Patient was transferred here for worsening shortness of breath. Patient with known ischemic cardiomyopathy. Echo here showing LVEF 20-25%, anterolateral wall AK, Grade II diastolic dysfunction and moderate pulmonary HTN. Echo July 2020 showing EF 35% with posterior segment AK and anterior wall hypodynamic. BNP 82864. CXR showing pulmonary edema and bilateral small-mod effusions. He takes Lasix 40mg daily. Here, he was started on Lasix 40mg IV BID. Patient's symptoms much improved. UOP inaccurate. Cr up top 2.1 today and BP soft now. We continued Entresto and Toprol. We changed to oral furosemide home dose (2) Elevated troponin: Code(s): R77.8 - Other specified abnormalities of plasma proteins Status: Acute Assessment and Plan: Troponins trended down from 153.0->0.053-> 0.050. Patient denies any chest pain [facility] cardiology group was consulted and advised this does not appear consistent with an ACS presentation. As such, heparin drip stopped. We continued DAPT, Toprol and Lipitor. (3) Acute delirium: Code(s): R41.0 - Disorientation, unspecified Status: Acute Assessment and Plan: Patient became aggressive and noncooperative the other evening. No reported history of dementia. This resolved spontaneously. Neuro exam was unremarkable and he retained all motor strength and coordination. No WBC elevation. UA showed nitrates, bacteria, trace leuk esterase, culture pending, consider UTI. Head CT non-con showed no acute process but with multiple regions of encephalomalacia and chronic age related findings. Carotid doppler showed <50% stenosis in the right internal carotid artery and 50-69% stenosis on the left. Echo showed no PFO. BCx NGTD. Patietn remained alert and oriented now. Urine culture pending. (4) Chronic obstructive pulmonary disease: Code(s): J44.9 - Chronic obstructive pulmonary disease, unspecified Status: Acute Assessment and Plan: Stable. No wheezing. We continued p.r.n. nebulizers. (5) Chronic kidney disease: Qualifiers: Chronic kidney disease stage: stage 4 (severe) Qualified Code(s): N18.4 - Chronic kidney disease, stage 4 (severe) Code(s): N18.9 - Chronic kidney disease, unspecified Status: Acute Assessment and Plan: Baseline Cr about 1.8-2.2. Renal function remained within his baseline. (6) Coronary artery disease: Code(s): I25.10 - Atherosclerotic heart disease of [place] coronary artery without angina pectoris Status: Acute Assessment and Plan: As above. We continuede dual anti-platelet therapy, beta-faviola, and statin. (7) Paroxysmal atrial fibrillation: Code(s): I48.0 - Paroxysmal atrial fibrillation Status: Acute Assessment and Plan: Patient maintained normal sinus rhythm by tele. We continued amiodarone. He is not on anticoagulati
--- NOTE | 2021-08-22 10:50 | PC.NURSE ---
1045-report called to FRANK Sosa at [facility].
--- NOTE | 2021-08-22 11:16 | PC.NURSE ---
1115-spoke with and updated to nora.
[2021-08-22 12:40] LABS: Glucose Point of Care 215 mg/dl (65-105)
--- NOTE | 2021-08-22 12:56 | PC.NURSE ---
1245-pt discharged via [facility]. personal room items with pt.
--- NOTE | 2021-08-24 06:46 | PC.NURSE ---
Urine cx shows mixed genital [place]. Dr. Greg martin.
== END 2021-08-22 12:48 | disposition short-term general hospital (02) ==
PROVIDERS: Physician Assistant; Admitting Provider Internal Medicine; PCP Family Medicine; Visit Provider Student in an Organized Health Care Education/Training Program
DX: I50.43 Acute on chronic combined systolic (congestive) and diastolic (congestive) heart failure (principal); R77.8 Other specified abnormalities of plasma proteins; I25.5 Ischemic cardiomyopathy; I25.10 Atherosclerotic heart disease of native coronary artery without angina pectoris; I48.0 Paroxysmal atrial fibrillation; N18.30 Chronic kidney disease, stage 3 unspecified; E11.22 Type 2 diabetes mellitus with diabetic chronic kidney disease; E11.51 Type 2 diabetes mellitus with diabetic peripheral angiopathy without gangrene; I70.293 Other atherosclerosis of native arteries of extremities, bilateral legs; I65.23 Occlusion and stenosis of bilateral carotid arteries; L40.9 Psoriasis, unspecified; J44.9 Chronic obstructive pulmonary disease, unspecified; R41.0 Disorientation, unspecified; F17.210 Nicotine dependence, cigarettes, uncomplicated; Z86.718 Personal history of other venous thrombosis and embolism; Z95.5 Presence of coronary angioplasty implant and graft; Z79.82 Long term (current) use of aspirin; Z79.84 Long term (current) use of oral hypoglycemic drugs; Z95.820 Peripheral vascular angioplasty status with implants and grafts; Z79.02 Long term (current) use of antithrombotics/antiplatelets
CPT/HCPCS: 36415; 36600; 70450; 80048; 80053; 82375; 82805; 82948; 83050; 83735; 84100; 84484; 85025; 85027; 85610; 85730; 87086; 87088; 93306; 93880; 96365; 96366; 96372; 96375; A9270; G0378; G0379; J1644; J1650; J1815; J1940